=== PATIENT | female | born 1945 | race Caucasian/White ===

== ENCOUNTER → 2017-07-08 13:36 | Outpatient (POV) | payer MEDICARE, BC, SELFPAY ==
[2017-07-08 14:01] VITALS: BP 129/56; PULSE 75; RESP 20; TEMP 36.7; O2SAT 97; BMI 35.3
--- NOTE | 2017-07-08 14:11 | P.CONS_ITS ---
[facility] Pain Management SOAP Note Subjective:: This patient is a pleasant 71-year-old white female who we are seeing status post right SI joint injection under fluoroscopy. She is doing very well with 90 % relief in her pain symptoms. She has no complaints at this time. Objective:: Alert and oriented ?3 in no acute distress. Patient does have a normal gait. Minimal tenderness over the right SI joint. Motor strength of the lower extremities is 5/5. There is no gross sensory deficit. Assessment:: Sacroiliitis Plan:: She is doing very well after her right SI joint injection. We will follow-up with her in 3 months. Will reevaluate her symptoms at that time.
== END ==
PROVIDERS: Family Provider Internal Medicine Adolescent Medicine; PCP Internal Medicine Adolescent Medicine; Visit Provider Anesthesiology
DX: M46.1 Sacroiliitis, not elsewhere classified (principal)
CPT/HCPCS: 99212

== ENCOUNTER 2017-09-11 19:36 | Emergency (ER) | payer MEDICARE, BC, SELFPAY ==
[2017-09-11 19:46] VITALS: BP 129/75; PULSE 99; RESP 18; TEMP 37.3; O2SAT 94; BMI 32.0
[2017-09-11 20:02] VITALS: BP 129/75; PULSE 99; RESP 18; TEMP 37.3; O2SAT 94; BMI 33.8
[2017-09-11 20:14] LABS: UTC Influenza A Antigen Negative (Negative); UTC Influenza B Antigen Negative (Negative)
--- NOTE | 2017-09-11 20:35 | HMH.EDUTC ---
[facility] [place] Disposition Clinical Impression: Nausea & vomiting Qualifiers: Vomiting type: unspecified Vomiting Intractability: unspecified Qualified Code(s): R11.2 - Nausea with vomiting, unspecified Disposition: Home, Self-Care Condition on Discharge: Good Instructions: DI for Vomiting -- Adult, DI for Nausea -- Adult Additional Instructions: Let abdomen rest, no greasy or fried foods. For the next 24 hours drink gatoraid to help restore lost nutrients from vomiting then later progress to bland diet of toast and rice. THen slowly transition into regular foods Take zofran as prescribed for nausea and vomiting If symptoms persist follow up with family doctor in 24-48 hours if no improvement or worsening of symptoms or Straight to ER if any life threatening symptoms REturn if needed Prescriptions: Ondansetron [Zofran 4mg ODT] 4 mg PO Q8H #10 tab.rapdis Referrals: Bhupendra Smith MD [Primary Care Provider] - Time of Disposition: 20:53 Medical Decision Making - Medical Records Medical records reviewed: Yes: I reviewed the patient's medical records. - Tam Inquiry Pt receiving controlled substance: No Tam was queried for this patient: No Vital Signs: 09/11/17 19:46 09/11/17 20:02 Temperature 99.2 F 99.2 F Temperature Source Tympanic Temporal Artery Scan Pulse Rate [Left Brachial] 99 H 99 H Respiratory Rate 18 18 Blood Pressure [Left Arm] 129/75 129/75 Blood Pressure Mean [Left Arm] 93 93 Blood Pressure Source [Left Arm] Automatic Cuff Automatic Cuff Blood Pressure Position [Left Arm] Sitting Sitting 02 Sat by Pulse Oximetry 94 L 94 L Oxygen Delivery Method Room Air Room Air - Lab Data Lab results reviewed: Yes: I reviewed the patient's lab results. Lab Results 09/11/17 20:03: Influenza Type A Ag Negative, Influenza Type B Ag Negative [facility] [place] HPI - General Stated complaint: vomiting,cough,chest congestion Time Seen by Provider: 09/11/17 20:10 Mode of Arrival: Ambulatory Source of Information: Patient Limitations: No Limitations Description of Symptoms (Recalled from Triage Doc. by RN): BODY ACHES HEENT Symptoms (Recalled from RN notes): Yes Resp Symptoms (Recalled from RN notes): No Skin Symptoms (Recalled from RN notes): No MS Symptoms (Recalled from RN notes): No Functional Status (Recalled from RN notes): N - History of Present Illness Provider Complaint: Patient state that she has been on Levaquin for her eye prior to her eye surgery State thats that today she has ran a low grade fever, had nausea, vomiting and cough State that she was suppose to have surgery on her left eye on Saturday but she was sick and they couldn't do it State that today she hasn't been able to keep any food down so her brought her in [facility] to have her checked to see if she could get anything to help keep her from getting dehydrated - Related Data Home Medications Medication Instructions Recorded Confirmed digoxin 125 mcg tablet 125 mcg PO QDAY 06/27/17 furosemide 20 mg tablet 20 mg PO QDAY 06/27/17 levothyroxine 175 mcg tablet PO QDAY tab 06/27/17 metformin 500 mg tablet 500 mg PO QDAY tab 06/27/17 omeprazole 20 mg capsule,delayed 20 mg PO QDAY 06/27/17 release rivaroxaban 20 mg tablet 20 mg PO QDAY 06/27/17 simvastatin 20 mg tablet 20 mg PO QDAY tab 06/27/17 venlafaxine ER 37.5 mg 37.5 mg PO QDAY 06/27/17 capsule,extended release 24 hr Previous Rx's Medication Instructions Recorded atenolol 50 mg tablet 50 mg PO QDAY #30 tab 06/27/17 lisinopril 20 mg tablet 20 mg PO QDAY #30 tab 06/27/17 Ondansetron [Zofran 4mg ODT] 4 mg PO Q8H #10 tab.rapdis 09/11/17 Allergies Allergy/AdvReac Type Severity Reaction Status Date / Time No Known Allergies Allergy Verified 09/11/17 20:05 - Worker's Comp Is this a Worker's Comp case?: No [facility] History I have reviewed the patient's past medical history: Yes Medical History: Reports:: Asthma, Atrial Fibrillation, Cancer, Dep
--- NOTE | 2017-09-11 20:45 | ED_ITS ---
[place] Disposition Clinical Impression: Nausea & vomiting Qualifiers: Vomiting type: unspecified Vomiting Intractability: unspecified Qualified Code( s): R11.2 - Nausea with vomiting, unspecified Disposition: Home, Self-Care Condition on Discharge: Good Instructions: DI for Vomiting -- Adult, DI for Nausea -- Adult Additional Instructions: Let abdomen rest, no greasy or fried foods. For the next 24 hours drink gatoraid to help restore lost nutrients from vomiting then later progress to bland diet of toast and rice. THen slowly transition into regular foods Take zofran as prescribed for nausea and vomiting If symptoms persist follow up with family doctor in 24-48 hours if no improvement or worsening of symptoms or Straight to ER if any life threatening symptoms REturn if needed Prescriptions: Ondansetron [Zofran 4mg ODT] 4 mg PO Q8H #10 tab.rapdis Referrals: Bhupendra Smith MD [Primary Care Provider] - Time of Disposition: 20:53 Medical Decision Making - Medical Records Medical records reviewed: Yes: I reviewed the patient's medical records. - Tam Inquiry Pt receiving controlled substance: No Tam was queried for this patient: No Vital Signs: 09/11/17 19:46 09/11/17 20:02 Temperature 99.2 F 99.2 F Temperature Source Tympanic Temporal Artery Scan Pulse Rate [Left Brachial] 99 H 99 H Respiratory Rate 18 18 Blood Pressure [Left Arm] 129/75 129/75 Blood Pressure Mean [Left Arm] 93 93 Blood Pressure Source [Left Arm] Automatic Cuff Automatic Cuff Blood Pressure Position [Left Arm] Sitting Sitting 02 Sat by Pulse Oximetry 94 L 94 L Oxygen Delivery Method Room Air Room Air - Lab Data Lab results reviewed: Yes: I reviewed the patient's lab results. Lab Results 09/11/17 20:03: Influenza Type A Ag Negative, Influenza Type B Ag Negative [place] HPI - General Stated complaint: vomiting,cough,chest congestion Time Seen by Provider: 09/11/17 20:10 Mode of Arrival: Ambulatory Source of Information: Patient Limitations: No Limitations Description of Symptoms (Recalled from Triage Doc. by RN): BODY ACHES HEENT Symptoms (Recalled from RN notes): Yes Resp Symptoms (Recalled from RN notes): No Skin Symptoms (Recalled from RN notes): No MS Symptoms (Recalled from RN notes): No Functional Status (Recalled from RN notes): N - History of Present Illness Provider Complaint: Patient state that she has been on Levaquin for her eye prior to her eye surgery State thats that today she has ran a low grade fever, had nausea, vomiting and cough State that she was suppose to have surgery on her left eye on Saturday but she was sick and they couldn't do it State that today she hasn't been able to keep any food down so her brought her in [facility] to have her checked to see if she could get anything to help keep her from getting dehydrated - Related Data Home Medications Medication Instructions Recorded Confirmed digoxin 125 mcg tablet 125 mcg PO QDAY 06/27/17 furosemide 20 mg tablet 20 mg PO QDAY 06/27/17 levothyroxine 175 mcg tablet PO QDAY tab 06/27/17 metformin 500 mg tablet 500 mg PO QDAY tab 06/27/17 omeprazole 20 mg capsule,delayed 20 mg PO QDAY 06/27/17 release rivaroxaban 20 mg tablet 20 mg PO QDAY 06/27/17 simvastatin 20 mg tablet 20 mg PO QDAY tab 06/27/17 venlafaxine ER 37.5 mg 37.5 mg PO QDAY 06/27/17 capsule,extended releas
[2017-09-11 20:55] VITALS: BP 129/75; PULSE 90; RESP 18; TEMP 37.2
== END 2017-09-11 20:57 | disposition home or self-care (01) ==
PROVIDERS: Nurse Practitioner; Emergency Provider Emergency Medicine; Family Provider Internal Medicine Adolescent Medicine; PCP Internal Medicine Adolescent Medicine
DX: R11.2 Nausea with vomiting, unspecified (principal); E11.9 Type 2 diabetes mellitus without complications; Z79.84 Long term (current) use of oral hypoglycemic drugs; K21.9 Gastro-esophageal reflux disease without esophagitis; E78.5 Hyperlipidemia, unspecified; I10 Essential (primary) hypertension; I73.9 Peripheral vascular disease, unspecified; J45.909 Unspecified asthma, uncomplicated; I48.2 Chronic atrial fibrillation
CPT/HCPCS: G0463; 87804; 96372; 99201; J2405

== ENCOUNTER → 2017-10-11 13:28 | Outpatient (CLI) | payer MEDICARE, BC, SELFPAY ==
--- NOTE | 2017-10-11 13:30 | CA_ITS ---
PROCEDURE: 2-D M-mode and color Doppler study INDICATIONS FOR THE TEST: Chest pain COPD Heart Murmur Tobacco Smoking Palpitations Fatigue Syncope Edema Hypertension+Diabetes Mellitus+ Rheumatic Fever SOB [place] Obesity Hyperlipidemia+ Family History HD Additional History [PAF, CAD, [place] PATIENT INFORMATION HEIGHT: 62 WEIGHT:184 GENDER: Female B/P:133/55 2-D/M-MODE INTERPRETATION: 2-D MEASUREMENTS OBSERVED VALUES IN CMS Right Ventricular Dimension (RVDd) 1.5 Interventricular Septum (Thickness)(IVsd) 1.0 Left Ventricular Internal Dimensions(LVIDd) 5.9 Left Ventricular Posterior Wall (Thickness)(LVPWd) 0.9 Aortic Root 3.7 Aortic Cusp Separation 2.2 Left Atrial Dimensions (LAD) 3.6 2D 1. Left atrium is mildly enlarged, left ventricle is normal size, there is mild concentric left ventricular hypertrophy, visually estimated ejection fraction 55% with no obvious regional wall motion abnormality. 2. The right atrium and right ventricle are mildly enlarged with normal contractility. 3. The aortic valve is thickened and calcified leaflet continue to display mobility. 4. The mitral and tricuspid valve are grossly normal. 5. The pulmonic valve is poorly visualized. 6. No significant pericardial effusion noted. DOPPLER INTERROGATION: Doppler interrogation of the aortic, mitral and tricuspid valvular presence of mild aortic, mild mitral and tricuspid regurgitation, calculated right ventricular systolic pressure is 43 mmHg consistent with moderate pulmonary hypertension, diastolic parameters are inconclusive. CONCLUSION: 1. Mildly enlarged left atrium, normal left ventricular size, mild concentric left ventricular hypertrophy, visually estimated ejection fraction 55% with no obvious regional wall motion abnormality, diastolic parameters are inconclusive. 2. Mild mitral and tricuspid regurgitation, calculated right ventricular systolic pressure is 43 mmHg consistent with moderate pulmonary hypertension. 3. No significant pericardial effusion noted.
== END ==
PROVIDERS: Family Provider Internal Medicine Adolescent Medicine; PCP Internal Medicine Adolescent Medicine; Visit Provider Internal Medicine
DX: I48.0 Paroxysmal atrial fibrillation (principal); I10 Essential (primary) hypertension; E78.5 Hyperlipidemia, unspecified; E11.9 Type 2 diabetes mellitus without complications
CPT/HCPCS: 93306

== ENCOUNTER → 2017-10-25 12:58 | Outpatient (CLI) | payer MEDICARE, BC, SELFPAY ==
--- NOTE | 2017-10-25 13:00 | XR_ITS ---
XR DEXA axial skeleton HISTORY: ITS.REASON: POST MENOAPSUAL ORDERING PHYSICIAN: Bhupendra Smith MD PATIENT AGE: 72 years FINDINGS: The BMD measured at the Right or left femoral neck is BMD g/cm squared with a T score of T score. This is considered Osteopenic according to the World Health Organization criteria. Fracture risk is Moderate. Treatment is advised. The L1 L4 density has a T score of -0.8 IMPRESSION: Osteopenia with moderate fracture risk. Treatment suggested. Recommend follow-up examination October 2019
== END ==
PROVIDERS: Family Provider Internal Medicine Adolescent Medicine; PCP Internal Medicine Adolescent Medicine; Visit Provider Internal Medicine Adolescent Medicine
DX: Z78.0 Asymptomatic menopausal state (principal); Z13.820 Encounter for screening for osteoporosis
CPT/HCPCS: 77080

== ENCOUNTER → 2018-02-19 11:12 | Outpatient (CLI) | payer MEDICARE, BC, SELFPAY ==
[2018-02-19 13:35] LABS: Basophils % 0.6 % (0.1-2.0); Eosinophils # 0.2 K/mm3 (0.0-0.4); Eosinophils % 4.1 % (0.1-12.0); Hemoglobin 12.4 g/dL (12.2-16.2); Lymphocytes % 22.4 K/mm3 (10-50); Mean Corpuscular HGB Conc 32.7 g/dL (31.8-35.4); Mean Corpuscular Hemoglobin 27.8 pg (27.0-31.2); Mean Corpuscular Volume 85.2 fl (81-99); Mean Platelet Volume 7.8 fl (7.4-10.4); Monocytes # 0.3 K/mm3 (0.1-1.0); Monocytes % 5.5 % (1.7-9.3); Neutrophils # 3.1 K/mm3 (1.8-7.8); Neutrophils % 67.4 % (37.0-80.0); Platelet Count 201 K/mm3 (142-424); Red Blood Count 4.46 M/mm3 (4.20-5.40); Red Cell Distribution Width 14.4 % (11.5-17.5); White Blood Count 4.6 K/mm3 (4.8-10.8)
[2018-02-19 13:56] LABS: Hemoglobin A1C 5.5 % (0.0-7.0)
[2018-02-19 14:09] LABS: Glucose 102 mg/dL (74-106); Thyroid Stimulating Hormone 0.01 uIU/ml (0.358-3.740)
[2018-02-19 14:25] LABS: Alanine Aminotransferase 21 U/L (12-78); Albumin Level 3.5 gm/dL (3.4-5.0); Albumin/Globulin Ratio 1.3 (1.1-1.8); Alkaline Phosphatase 110 U/L (46-116); Anion Gap 12.3 mEq/L (5-15); Aspartate Amino Transferase 14 U/L (15-37); Bilirubin,Total 0.5 mg/dL (0.2-1.0); Blood Urea Nitrogen 10 mg/dL (7-18); Calcium 8.4 mg/dL (8.5-10.1); Carbon Dioxide 29 mmol/L (21.0-32.0); Chloride 105 mmol/L (98-107); Creatinine,Serum 0.74 mg/dL (0.55-1.02); Estimated Glomerular Filt Rate 77 ml/min (>60); GFR (African American) 94 ML/MIN (>60); Globulin 2.8 gm/dl (1.3-3.2); Potassium 4.3 mmoL/L (3.5-5.1); Sodium 142 mmol/L (136-145); Total Protein,Serum 6.3 gm/dL (6.4-8.2)
[2018-02-19 14:52] LABS: Chol/HDL Ratio 2.4 (1-3.5); Cholesterol 144 mg/dL (140-200); HDL Cholesterol 59 mg/dL (29-89); LDL Cholesterol 58 mg/dL (0-130); Triglycerides 137 mg/dL (30-200); VLDL Cholesterol 27 mg/dL (0-40)
== END ==
PROVIDERS: PCP Internal Medicine Adolescent Medicine; Visit Provider Internal Medicine Adolescent Medicine
DX: I48.2 Chronic atrial fibrillation (principal); E11.9 Type 2 diabetes mellitus without complications; E78.2 Mixed hyperlipidemia
CPT/HCPCS: 36415; 80053; 80061; 83036; 84443; 85025

== ENCOUNTER 2018-06-14 05:06 | Inpatient (IN) ==
--- NOTE | 2018-06-14 05:20 | Emergency Department Note ---
ED Disposition Clinical Impression: 2nd degree atrioventricular block, History of atrial fibrillation, Diabetes mellitus Disposition: Admitted As Inpatient Condition on Discharge: Fair - Critical Care Critical Care Time: No Attestation: On , the high probability of a clinically significant, sudden or life threatening deterioration of the following system(s) required my full and direct attention, intervention and personal management. The time I documented below is in addition to time spent performing reported procedures but includes the following listed in this critical care notation. Medical Decision Making - Medical Records Medical records reviewed: Yes: I reviewed the patient's medical records. MR Comment: Discussed case with her station operator Dr. Howe. Discussed case with hospitalist investigation specialist (Dr. Najera). Patient admitted to hospital for farther management and monitoring. Patient remained stable during her ED care. - Tam Inquiry Pt receiving controlled substance: No Tam was queried for this patient: No Vital Signs: 06/14/18 05:07 06/14/18 05:51 06/14/18 06:06 Pulse Rate [Right] 75 71 70 Respiratory Rate 20 20 20 Blood Pressure [Right Arm] 169/92 H 153/76 H 145/84 H Blood Pressure Mean [Right Arm] 117 101 104 Blood Pressure Source [Right Arm] Automatic Cuff Blood Pressure Position [Right Arm] Supine 02 Sat by Pulse Oximetry 96 96 96 Oxygen Delivery Method Room Air Room Air Room Air - Lab Data Lab results reviewed: Yes: I reviewed the patient's lab results. Lab Results 06/14/18 05:10: WBC 6.6, RBC 4.48, Hgb 12.8, Hct 39.6, MCV 88.3, MCH 28.5, MCHC 32.3, RDW 13.8, Plt Count 230, MPV 7.1 L, Neut % (Auto) 58.4, Lymph % (Auto) 32.2, [place] % (Auto) 4.5, Eos % (Auto) 3.9, Baso % (Auto) 0.9, Neut # (Auto) 3.8, Lymph # (Auto) 2.1, [place] # (Auto) 0.3, Eos # (Auto) 0.3, Baso # (Auto) 0.1 06/14/18 05:10: Sodium 142, Potassium 3.9, Chloride 103, Carbon Dioxide 30, Anion Gap 12.9, BUN 18, Creatinine 0.88, Estimated Creat Clear 67, Estimated GFR 63, Est GFR ( Amer) 77, Glucose 121 H, Calcium 8.7, Troponin I < 0.02 06/14/18 05:10: Magnesium 1.9, TSH 0.70 D, Free T4 1.11 06/14/18 05:10: B-Natriuretic Peptide 68 06/14/18 05:10: Digoxin 0.75 L 06/14/18 05:10: APTT 38.4 H 06/14/18 05:10: PT 12.9 H, INR 1.26 H Result diagrams: 06/14/18 05:10 06/14/18 05:10 Orders (Tests/Meds): ED MEDICATIONS Generic Name Dose Route Start Last Admin Trade Name Freq PRN Reason Stop Dose Admin Sodium Chloride 10 ml 06/14/18 05:13 Saline Flush 10ml Syringe IV 07/14/18 05:12 NEEDED PRN Maintain IV Site ORDERS Category Date Time Status XR chest 2V Stat Exams 06/14/18 05:13 Taken 12-lead EKG Request [ECG Request by /Estela] Stat Y 06/14/18 05:13 Ordered - Radiology Data #1 Image(s): Chest Image Reviewed: Yes I reviewed the patient's radiology image Preliminary Findings: Normal/NAD - ECG Data Tracing #1 Arrhythmias present: other (2nd Degree AV block, Mobitz type I ) Chest Pain HPI - General Chief Complaint: Arrhythmia/Palpitations Stated Complaint: Irregular heart beat Time Seen by Provider: 06/14/18 05:07 Mode of Arrival: Ambulatory Limitations: No Limitations Description of Symptoms (Recalled from ER Triage Doc. by RN): Pt states right before arrival she had woken up to use the rest room and started to feel her heart "fluttering" Pt states she has a-fib but is not currently taking anything for it. Pt states she has SOA and chest pain with this episode. - History of Present Illness HPI narrative: Patient with history of HTN, DM, atrial fibrillation, comes to the ED after waking up with persistent feeling of palpitation. Denies chest pain, sob. Reports compliance with her current home medications. - Related Data Home Medications Medication Instructions Recorded Confirmed furosemide 20 mg tablet 20 mg PO QDAY 06/27/17 06/14/18 metformin 500 mg tablet 500 mg PO QDAY tab 06/27/17 06/14/18 omeprazole 20 mg capsule,delayed 20 mg PO QDAY 06/27/17 06/14/18 release simvastatin 20 mg tablet 20 mg PO QDAY tab 06/27/17 06/14/18 fluticasone 50 mcg/actuation nasal 1 spray INTRANASAL DAILY g 10/17/17 06/14/18 spray,suspension lactobacillus combination no.8 3 3,000 mmu cells PO DAILY cap 10/17/17 06/14/18 billion cell capsule ranitidine 150 mg tablet 150 mg PO BID tab 10/17/17 06/14/18 venlafaxine ER 37.5 mg 150 mg PO QDAY cap 10/17/17 06/14/18 capsule,extended release 24 hr levothyroxine 150 mcg tablet 150 mcg PO DAILY 04/17/18 06/14/18 ondansetron 4 mg disintegrating 4 mg PO Q8H PRN tab.rapdis 04/17/18 06/14/18 tablet Atenolol [Atenolol 50mg Tab] 50 mg PO QDAY 06/14/18 06/14/18 Digoxin 125 mcg PO QDAY 06/14/18 06/14/18 Lisinopril [Prinivil 20mg Tablet] 10 mg PO QDAY 06/14/18 06/14/18 Rivaroxaban [Xarelto 20mg Tablet] 20 mg PO QDAY 06/14/18 06/14/18 Allergies Allergy/AdvReac Type Severity Reaction Status Date / Time No Known Allergies Allergy Verified 09/11/17 20:05 [facility] History - Hepatitis A Screen Drug use history?: No High risk sexual behaviors?: No History of sexually transmitted infection?: No Currently employed?: No Childcare worker?: No Do you have indoor plumbing?: Yes Do you have electricity?: Yes Attestation statement:: This patient has been screened for Hepatitis A risk factors. Medical History: Reports:: Asthma, Atrial Fibrillation, Cancer (breast), Depression, Diabetes Mellitus Type 2, Gastroesophageal Reflux Disease(GERD), Hyperlipidemia, Hypertension, Palpitations, Peripheral Artery Disease Other Medical History: Reports: Arthritis, Fibromyalgia, Hypothyroidism Laterality Cases: Bilateral: Lumpectomy Other Surgeries: Yes: Hysterectomy-Total, Other - Social History Smoking Status: Former smoker Alcohol Intake: never Alcohol Intake Frequency:: other - Psychiatric History Expresses thoughts of harming self/others: None Suicide Plan Description: No Plan Pschychiatric History:: Reports:: Depression Family Hx:: Coronary Artery Disease ROS Obtained: Yes All systems reviewed & no additional complaints - Cardiovascular Cardiovascular: Reports as per HPI Physical Exam - General General appearance: alert, in no apparent distress - Head Head exam: atraumatic, normocephalic, normal inspection - Eye Eye exam: Present: normal appearance, PERRL, EOMI - ENT ENT exam: Present: normal exam, normal oropharynx, mucous membranes moist, TM's normal bilaterally, normal external ear exam - Neck Neck exam: Present: normal inspection, full ROM, trachea midline. Absent: meningismus, lymphadenopathy - Chest Chest inspection: Present: normal inspection, symmetric chest wall rise. Absent: tenderness - Respiratory Respiratory exam: Present: normal lung sounds bilaterally. Absent: respiratory distress - Cardiovascular Cardiovascular exam: Present: irregular rhythm. Absent: JVD - Abdominal Exam Abdominal exam: Present: soft, normal bowel sounds. Absent: distention, tenderness, guarding - Extremities Exam Extremities exam: Present: normal inspection, full ROM, normal capillary refill. Absent: calf tenderness - Back Exam Back exam: Present: normal inspection. Absent: tenderness - Neurological Exam Neurological exam: Present: alert, oriented X3 - Psychiatric Psychiatric exam: Present: normal affect, normal mood - Skin Skin exam: Present: warm, dry, intact, normal color - Lymphatic Lymphatic Findings: no adenopathy
[2018-06-14 05:24] LABS: Basophils # 0.1 K/mm3 (0-0.2); Basophils % 0.9 % (0.1-2.0); Eosinophils # 0.3 K/mm3 (0.0-0.4); Eosinophils % 3.9 % (0.1-12.0); Hematocrit 39.6 % (37.0-47.0); Hemoglobin 12.8 g/dL (12.2-16.2); Lymphocytes # 2.1 K/mm3 (0.7-4.5); Lymphocytes % 32.2 % (10-50); Mean Corpuscular HGB Conc 32.3 g/dL (31.8-35.4); Mean Corpuscular Hemoglobin 28.5 pg (27.0-31.2); Mean Corpuscular Volume 88.3 fl (81-99); Mean Platelet Volume 7.1 fl (7.4-10.4); Monocytes # 0.3 K/mm3 (0.1-1.0); Monocytes % 4.5 % (1.7-9.3); Neutrophils # 3.8 K/mm3 (1.8-7.8); Neutrophils % 58.4 % (37.0-80.0); Platelet Count 230 K/mm3 (142-424); Red Blood Count 4.48 M/mm3 (4.20-5.40); Red Cell Distribution Width 13.8 % (11.5-17.5); White Blood Count 6.6 K/mm3 (4.8-10.8)
[2018-06-14 05:40] LABS: Anion Gap 12.9 mEq/L (5-15); Blood Urea Nitrogen 18 mg/dL (7-18); Calcium 8.7 mg/dL (8.5-10.1); Carbon Dioxide 30 mmol/L (21.0-32.0); Chloride 103 mmol/L (98-107); Glucose 121 mg/dL (74-106); Potassium 3.9 mmoL/L (3.5-5.1); Sodium 142 mmol/L (136-145)
[2018-06-14 05:45] LABS: Free T4 (Free Thyroxine) 1.11 ng/dl (0.76-1.46); Thyroid Stimulating Hormone 0.7 uIU/ml (0.358-3.740)
[2018-06-14 06:07] LABS: INR 1.26 (0.9-1.1); Prothrombin Time 12.9 seconds (9.4-11.8)
--- NOTE | 2018-06-14 09:23 | Pharmacy Consult Notes ---
[facility] VTE Monitoring - Patient Demographics Admission date: 06/14/18 Report Date: 06/14/18 Time: 09:23 Allergies/Adverse Reactions: Patient Allergies No Known Allergies Allergy (Verified 09/11/17 20:05) Height: 1.55 m Weight: 82.327 kg Patient Problems: Current Active Problems 2nd degree atrioventricular block (Acute) History of atrial fibrillation (Acute) Diabetes mellitus (Acute) - VTE Risk Labs: VTE Related Lab Results Hgb 12.8 g/dL (12.2-16.2) 06/14/18 05:10 Hct 39.6 % (37.0-47.0) 06/14/18 05:10 Plt Count 230 K/mm3 (142-424) 06/14/18 05:10 PT 12.9 seconds (9.4-11.8) H 06/14/18 05:10 INR 1.26 (0.9-1.1) H 06/14/18 05:10 APTT 38.4 seconds (23.6-34.0) H 06/14/18 05:10 BUN 18 mg/dL (7-18) 06/14/18 05:10 Creatinine 0.88 mg/dL (0.55-1.02) 06/14/18 05:10 Estimated Creat Clear 67 mL/min (50-200) 06/14/18 05:10 VTE Score: 10 VTE Risk Level: Moderate Risk - Prophylaxis VTE Prophylaxis Ordered?: Yes Types of VTE Prophylaxis: TEDS Knee High, Pharmacological Location of Applied Device: Bilateral Lower Extremeties Pharmacologic Type: Other (XARELTO) - VTE Diagnosis Confirmed Treatment or plan recommended: Continue Current Treatment
--- NOTE | 2018-06-14 13:39 | History & Physical Report ---
*Admission Date: 06/14/18 *Chief complaint: Abnormal heart rhythm *History of present illness: Ms. Sagastume is a 72-year-old female with medical history consisting of Asthma, paroxysmal atrial Fibrillation, Diabetes Mellitus Type 2, Gastroesophageal Reflux Disease(GERD), Hyperlipidemia, Hypertension. She reports that she has been following with cardiology for her A. fib. Has a history of being treated with an ablation several years ago that did not resolve her atrial fibrillation. She is currently on digoxin for rhythm control. She reports for the past week she has not felt 100%. Has felt a little bit more fatigued and short of breath. Denies any magdalene chest pain, worsening lower extremity edema, syncope, or dizziness. She states that she follows with cardiology at [facility] and was instructed to return to clinic if she develops recurrent atrial fibrillation or arrhythmias. It was this morning at approximately 330 that she woke up with her heart "fluttering". She promptly had her bring her to the emergency room where she was assessed and found to have concern for a heart block. Cardiology was consulted at that time the patient was admitted to medicine for further management. Her complaints on interview this morning. Admitted on telemetry [facility] History I have reviewed the patient's past medical history: Yes Medical History: Reports:: Arrhythmia, Asthma, Atrial Fibrillation, Cancer (cynthia ast), Depression, Diabetes Mellitus Type 2, Gastroesophageal Reflux Disease(GERD), Hyperlipidemia, Hypertension, Palpitations, Peripheral Artery Disease Other Medical History: Reports: Arthritis, Cataracts, Fibromyalgia, Hypothyroidism Laterality Cases: Right: Breast Biopsy, Bilateral: Lumpectomy, Tonsillectomy Other Surgeries: Yes: Cancer Surgery, Cardiac Catheterization, Cholecystectomy, Colonoscopy, EGD, Hysterectomy-Total, Other Amputation: No Fractures: No - *Social History Educational Level: Attended [employer] Smoking Status: Former smoker Tobacco Type: cigarettes # Packs/Day (cigarettes): 1 #Yrs smoked (if former smoker): 30 Alcohol Intake: former Alcohol Intake Frequency:: holidays/special occasions only Occupational Status: retired Housing: house Household Members: spouse - Psychiatric History Expresses thoughts of harming self/others: None Suicide Plan Description: No Plan Pschychiatric History:: Reports:: Depression *Family Hx:: Asthma, Cancer, Coronary Artery Disease, Diabetes, Heart Attack, Hyperlipidemia, Hypertension, Stroke Review of Systems - Review of Systems Review of systems:: pertinent systems reviewed and negative unless documented below Meds Home Medications Medication Instructions Recorded Confirmed Type furosemide 20 mg tablet 20 mg PO DAILY 06/27/17 06/14/18 History metformin 500 mg tablet 500 mg PO DAILY tab 06/27/17 06/14/18 History omeprazole 20 mg capsule,delayed 20 mg PO BID 06/27/17 06/14/18 History release simvastatin 20 mg tablet 20 mg PO HS tab 06/27/17 06/14/18 History fluticasone 50 mcg/actuation nasal 1 spray INTRANASAL DAILY g 10/17/17 06/14/18 History spray,suspension lactobacillus combination no.8 3 1 cap PO DAILY cap 10/17/17 06/14/18 History billion cell capsule ranitidine 150 mg tablet 150 mg PO BID tab 10/17/17 06/14/18 History levothyroxine 150 mcg tablet 150 mcg PO DAILY 04/17/18 06/14/18 History ondansetron 4 mg disintegrating 4 mg PO Q8HP PRN tab.rapdis 04/17/18 06/14/18 History tablet Atenolol [Atenolol 50mg Tab] 50 mg PO DAILY 06/14/18 06/14/18 History Digoxin 125 mcg PO DAILY 06/14/18 06/14/18 History Lisinopril [Prinivil 20mg Tablet] 10 mg PO DAILY 06/14/18 06/14/18 History Rivaroxaban [Xarelto 20mg Tablet] 20 mg PO DAILY 06/14/18 06/14/18 History Venlafaxine HCl [Venlafaxine HCl 150 mg PO DAILY 06/14/18 06/14/18 History ER] Allergies Allergy/AdvReac Type Severity Reaction Status Date / Time No Known Allergies Allergy Verified 09/11/17 20:05 Exam Vital signs and Labs for Last 24 Hours: Temp Pulse Resp BP Pulse Ox 97.6 F 67 18 153/68 H 97 06/14/18 13:00 06/14/18 13:00 06/14/18 13:00 06/14/18 13:00 06/14/18 13:00 Laboratory Results - last 24 hr 06/14/18 05:10: WBC 6.6, RBC 4.48, Hgb 12.8, Hct 39.6, MCV 88.3, MCH 28.5, MCHC 32.3, RDW 13.8, Plt Count 230, MPV 7.1 L, Neut % (Auto) 58.4, Lymph % (Auto) 32.2, Dauphin % (Auto) 4.5, Eos % (Auto) 3.9, Baso % (Auto) 0.9, Neut # (Auto) 3.8, Lymph # (Auto) 2.1, Dauphin # (Auto) 0.3, Eos # (Auto) 0.3, Baso # (Auto) 0.1 06/14/18 05:10: Sodium 142, Potassium 3.9, Chloride 103, Carbon Dioxide 30, Anion Gap 12.9, BUN 18, Creatinine 0.88, Estimated Creat Clear 67, Estimated GFR 63, Est GFR ( Amer) 77, Glucose 121 H, Calcium 8.7, Troponin I < 0.02 06/14/18 05:10: Magnesium 1.9, TSH 0.70 D, Free T4 1.11 06/14/18 05:10: B-Natriuretic Peptide 68 06/14/18 05:10: Digoxin 0.75 L 06/14/18 05:10: APTT 38.4 H 06/14/18 05:10: PT 12.9 H, INR 1.26 H I & O for Last 24 hours: Intake & Output 06/11/18 06/12/18 06/13/18 06/14/18 23:59 23:59 23:59 23:59 Intake Total 240 / 240 Balance 240 / 240 Weight 82.327 kg - Constitutional no acute distress - *Routine HEENT Exam Head: Present: normocephalic, atraumatic Eye: Present: EOMI, PERRL ENT: Present: mucous membranes moist - *Routine Neck Exam Present: supple. Absent: JVD - *Routine Respiratory Exam Present: CTA bilaterally. Absent: wheezes, crackles - *Routine Cardiovascular Exam Present: Normal S1, Normal S2, irregular rhythm. Absent: murmur - *Routine Abdominal Exam Present: soft, normoactive bowel sounds - *Routine Rectal Exam Patient deferred: visual exam - *Routine Exam Patient deferred: external exam - *Routine Extremities Exam Absent: cyanosis, clubbing, edema - *Routine Skin Exam Present: intact. Absent: cyanosis, erythema - *Routine Neurological Exam Present: alert, oriented X3, altered mental status Assessment and Plan (1) 2nd degree atrioventricular block Current visit: Yes Status: Acute Category: Medical Code(s): I44.1 - Atrioventricular block, second degree Monitor on telemetry Cardiology consulted, appreciate recommendation Going to Card Hand this afternoon (2) Diabetes mellitus Current visit: Yes Status: Chronic Qualifiers: Diabetes mellitus type: type 2 Diabetes mellitus complication status: without complication Category: Medical Code(s): E11.9 - Type 2 diabetes mellitus without complications Sliding scale insulin (3) Atrial fibrillation Current visit: No Status: Chronic Qualifiers: Atrial fibrillation type: paroxysmal Qualified Code(s): I48.0 - Paroxysmal atrial fibrillation Category: Medical Code(s): I48.91 - Unspecified atrial fibrillation Currently continued atenolol and digoxin. Continue Xarelto. Further changes pending cardiology Jonas (4) Hypertensive disorder Current visit: No Status: Chronic Qualifiers: Hypertension type: essential hypertension Qualified Code(s): I10 - Essential (primary) hypertension Category: Medical Code(s): I10 - Essential (primary) hypertension Continue lisinopril (5) Hypothyroid Current visit: Yes Status: Chronic Qualifiers: Hypothyroidism type: acquired Qualified Code(s): E03.9 - Hypothyroidism, unspecified Category: Medical Code(s): E03.9 - Hypothyroidism, unspecified Continue home levothyroxine - Assessment and plan all Dx Assessment and Plan for all problems:: Intervention plan for this afternoon. Further management pending cardiology recommendations. Continues to require inpatient treatment
--- NOTE | 2018-06-14 23:20 | Discharge Summary ---
General - General Admission date:: 06/14/18 Discharge date: 06/15/18 HPI HPI: Ms. Sagastume is a 72-year-old female with medical history consisting of Asthma, paroxysmal atrial Fibrillation, Diabetes Mellitus Type 2, Gastroesophageal Reflux Disease(GERD), Hyperlipidemia, Hypertension. She reports that she has been following with cardiology for her A. fib. Has a history of being treated with an ablation several years ago that did not resolve her atrial fibrillation. She is currently on digoxin for rhythm control. She reports for the past week she has not felt 100%. Has felt a little bit more fatigued and short of breath. Denies any magdalene chest pain, worsening lower extremity edema, syncope, or dizziness. She states that she follows with cardiology at [facility] and was instructed to return to clinic if she develops recurrent atrial fibrillation or arrhythmias. It was this morning at approximately 330 that she woke up with her heart "fluttering". She promptly had her bring her to the emergency room where she was assessed and found to have concern for a heart block. Cardiology was consulted at that time the patient was admitted to medicine for further management. Her complaints on interview this morning. Admitted on telemetry Objective Vital signs: Temp Pulse Resp BP Pulse Ox 98.1 F 59 L 16 138/65 97 06/14/18 22:00 06/14/18 22:00 06/14/18 22:00 06/14/18 22:00 06/14/18 22:00 Results Labs on day of discharge: Labs from last 24 hours 06/14/18 06/14/18 06/14/18 14:15 05:10 05:10 WBC RBC Hgb Hct MCV MCH MCHC RDW Plt Count MPV Neut % (Auto) Lymph % (Auto) Sargent % (Auto) Eos % (Auto) Baso % (Auto) Neut # (Auto) Lymph # (Auto) Sargent # (Auto) Eos # (Auto) Baso # (Auto) PT 12.9 H INR 1.26 H APTT 38.4 H Activated Clotting Time > 400 H* Sodium Potassium Chloride Carbon Dioxide Anion Gap BUN Creatinine Estimated Creat Clear Estimated GFR Est GFR ( Amer) Glucose Calcium Magnesium Troponin I B-Natriuretic Peptide TSH Free T4 Digoxin 06/14/18 06/14/18 06/14/18 05:10 05:10 05:10 WBC RBC Hgb Hct MCV MCH MCHC RDW Plt Count MPV Neut % (Auto) Lymph % (Auto) Sargent % (Auto) Eos % (Auto) Baso % (Auto) Neut # (Auto) Lymph # (Auto) Sargent # (Auto) Eos # (Auto) Baso # (Auto) PT INR APTT Activated Clotting Time Sodium Potassium Chloride Carbon Dioxide Anion Gap BUN Creatinine Estimated Creat Clear Estimated GFR Est GFR ( Amer) Glucose Calcium Magnesium 1.9 Troponin I B-Natriuretic Peptide 68 TSH 0.70 D Free T4 1.11 Digoxin 0.75 L 06/14/18 06/14/18 05:10 05:10 WBC 6.6 RBC 4.48 Hgb 12.8 Hct 39.6 MCV 88.3 MCH 28.5 MCHC 32.3 RDW 13.8 Plt Count 230 MPV 7.1 L Neut % (Auto) 58.4 Lymph % (Auto) 32.2 Sargent % (Auto) 4.5 Eos % (Auto) 3.9 Baso % (Auto) 0.9 Neut # (Auto) 3.8 Lymph # (Auto) 2.1 Sargent # (Auto) 0.3 Eos # (Auto) 0.3 Baso # (Auto) 0.1 PT INR APTT Activated Clotting Time Sodium 142 Potassium 3.9 Chloride 103 Carbon Dioxide 30 Anion Gap 12.9 BUN 18 Creatinine 0.88 Estimated Creat Clear 67 Estimated GFR 63 Est GFR ( Amer) 77 Glucose 121 H Calcium 8.7 Magnesium Troponin I < 0.02 B-Natriuretic Peptide TSH Free T4 Digoxin DS: Diagnosis - Discharge Diagnosis (1) 2nd degree atrioventricular block Status: Acute (2) Diabetes mellitus Status: Chronic (3) Atrial fibrillation Status: Chronic (4) Hypertensive disorder Status: Chronic (5) Hypothyroid Status: Chronic Discharge Plan - Patient Discharge Instructions Patient Instructions: How to Care for a Surgical Wound, DI for Cardiac Catheterization, DI for Surgical Site Infection - Follow up Plan Home Medications: Home Medications Medication Instructions Recorded Confirmed Type furosemide 20 mg tablet 20 mg PO DAILY 06/27/17 06/14/18 History metformin 500 mg tablet 500 mg PO DAILY tab 06/27/17 06/14/18 History omeprazole 20 mg capsule,delayed 20 mg PO BID 06/27/17 06/14/18 History release simvastatin 20 mg tablet 20 mg PO HS tab 06/27/17 06/14/18 History fluticasone 50 mcg/actuation nasal 1 spray INTRANASAL DAILY g 10/17/17 06/14/18 History spray,suspension lactobacillus combination no.8 3 1 cap PO DAILY cap 10/17/17 06/14/18 History billion cell capsule ranitidine 150 mg tablet 150 mg PO BID tab 10/17/17 06/14/18 History levothyroxine 150 mcg tablet 150 mcg PO DAILY 04/17/18 06/14/18 History ondansetron 4 mg disintegrating 4 mg PO Q8HP PRN tab.rapdis 04/17/18 06/14/18 History tablet Atenolol [Atenolol 50mg Tab] 50 mg PO DAILY 06/14/18 06/14/18 History Digoxin 125 mcg PO DAILY 06/14/18 06/14/18 History Lisinopril [Prinivil 20mg Tablet] 10 mg PO DAILY 06/14/18 06/14/18 History Rivaroxaban [Xarelto 20mg Tablet] 20 mg PO DAILY 06/14/18 06/14/18 History Venlafaxine HCl [Venlafaxine HCl 150 mg PO DAILY 06/14/18 06/14/18 History ER] Prescriptions/Medication Reconciliation: No Action furosemide 20 mg tablet 20 mg PO DAILY simvastatin 20 mg tablet 20 mg PO HS tab omeprazole 20 mg capsule,delayed release 20 mg PO BID metformin 500 mg tablet 500 mg PO DAILY tab ranitidine 150 mg tablet 150 mg PO BID tab lactobacillus combination no.8 3 billion cell capsule 1 cap PO DAILY cap fluticasone 50 mcg/actuation nasal spray,suspension 1 spray INTRANASAL DAILY g levothyroxine 150 mcg tablet 150 mcg PO DAILY ondansetron 4 mg disintegrating tablet 4 mg PO Q8HP PRN tab.rapdis PRN Reason: Nausea & vomiting Lisinopril [Prinivil 20mg Tablet] 10 mg PO DAILY Digoxin 125 mcg PO DAILY Rivaroxaban [Xarelto 20mg Tablet] 20 mg PO DAILY Atenolol [Atenolol 50mg Tab] 50 mg PO DAILY Venlafaxine HCl [Venlafaxine HCl ER] 150 mg PO DAILY
[2018-06-15 06:17] LABS: Hematocrit 38.3 % (37.0-47.0); Hemoglobin 12.6 g/dL (12.2-16.2)
== END 2018-06-15 12:01 | disposition home or self-care (01) | DRG 247 ==
LOC: ER 05:06 → 2ND 05:06 → OBSVTOIN 06:35 → 2ND 06:39
PROVIDERS: ADMIT Internal Medicine Adolescent Medicine; ATTEND Internal Medicine Adolescent Medicine
CPT/HCPCS: 36415; 71020; 71046; 80048; 80162; 82565; 83735; 83880; 84439; 84443; 84484; 85014; 85018; 85025; 85347; 85610; 85730; 92928; 93005; 93458; 99152; 99153; 99284; C1725; C1769; C1876; C9600; J1644; Q9967

== ENCOUNTER → 2018-11-12 10:15 | Outpatient (CLI) | payer MEDICARE, BC, SELFPAY ==
[2018-11-12 13:57] LABS: Basophils % 0.6 % (0.1-2.0); Eosinophils # 0.2 K/mm3 (0.0-0.4); Eosinophils % 3.8 % (0.1-12.0); Hematocrit 34.8 % (37.0-47.0); Hemoglobin 11.7 g/dL (12.2-16.2); Lymphocytes # 1.6 K/mm3 (0.7-4.5); Lymphocytes % 27.1 % (10-50); Mean Corpuscular HGB Conc 33.6 g/dL (31.8-35.4); Mean Corpuscular Hemoglobin 27.7 pg (27.0-31.2); Mean Corpuscular Volume 82.3 fl (81-99); Mean Platelet Volume 7.3 fl (7.4-10.4); Monocytes # 0.3 K/mm3 (0.1-1.0); Monocytes % 4.6 % (1.7-9.3); Neutrophils # 3.9 K/mm3 (1.8-7.8); Neutrophils % 63.9 % (37.0-80.0); Platelet Count 265 K/mm3 (142-424); Red Blood Count 4.23 M/mm3 (4.20-5.40); Red Cell Distribution Width 13.6 % (11.5-17.5); White Blood Count 6.1 K/mm3 (4.8-10.8)
[2018-11-12 13:59] LABS: Hemoglobin A1C 5.8 % (0.0-7.0)
[2018-11-12 15:06] LABS: Alanine Aminotransferase 27 U/L (12-78); Albumin Level 3.3 gm/dL (3.4-5.0); Albumin/Globulin Ratio 1.2 (1.1-1.8); Alkaline Phosphatase 139 U/L (46-116); Aspartate Amino Transferase 14 U/L (15-37); Bilirubin,Total 0.4 mg/dL (0.2-1.0); Blood Urea Nitrogen 15 mg/dL (7-18); Calcium 8.6 mg/dL (8.5-10.1); Carbon Dioxide 29 mmol/L (21.0-32.0); Chloride 105 mmol/L (98-107); Chol/HDL Ratio 3.2 (1-3.5); Cholesterol 140 mg/dL (140-200); Creatinine,Serum 0.75 mg/dL (0.55-1.02); Estimated Glomerular Filt Rate 76 ml/min (>60); Free Thyroxine Index 3.6 ug/dL (5.93-13.13); GFR (African American) 92 ML/MIN (>60); Globulin 2.7 gm/dl (1.3-3.2); Glucose 113 mg/dL (74-106); HDL Cholesterol 44 mg/dL (29-89); LDL Cholesterol 42 mg/dL (0-130); Sodium 142 mmol/L (136-145); T4 (Thyroxine) 10.3 ug/dl (4.7-13.3); Triglycerides 271 mg/dL (30-200); Triiodothryronine (T3) Uptake 35 % (31-39); VLDL Cholesterol 54 mg/dL (0-40)
== END ==
PROVIDERS: PCP Internal Medicine Adolescent Medicine; Visit Provider Internal Medicine Adolescent Medicine
DX: I48.2 Chronic atrial fibrillation (principal); E11.9 Type 2 diabetes mellitus without complications; E78.2 Mixed hyperlipidemia; E03.9 Hypothyroidism, unspecified; Z79.4 Long term (current) use of insulin
CPT/HCPCS: 36415; 80053; 80061; 83036; 84436; 84443; 84479; 85025

== ENCOUNTER → 2019-04-28 13:41 | Outpatient (POV) | payer MEDICARE, BC, SELFPAY | PROVIDERS: Visit Provider Dermatology | DX: Z00.00 Encounter for general adult medical examination without abnormal findings (principal) ==

== ENCOUNTER → 2019-10-12 13:48 | Outpatient (CLI) | payer MEDICARE, BC, SELFPAY ==
--- NOTE | 2019-10-12 14:08 | US_ITS ---
PROCEDURE: US TRANSVAGINAL CLINICAL INDICATION: LOWER ABD PAIN Urinary incontinence COMPARISON: No exams were available for comparison FINDINGS: There has been a previous total abdominal hysterectomy. Vaginal cuff unremarkable appearance. No obvious pelvic mass. There is a small amount postvoid residual urine within the urinary bladder estimated at 13 mL. IMPRESSION: Prior hysterectomy with small amount of postvoid residual urine noted within the urinary bladder Dictated by: Isaias Sands MD 10/12/2019 16:18 Electronically signed by Isaias Sands MD in [place] 10/12/2019 16:18
== END ==
PROVIDERS: PCP Internal Medicine Adolescent Medicine; Visit Provider Internal Medicine Adolescent Medicine
DX: R10.30 Lower abdominal pain, unspecified (principal)
CPT/HCPCS: 76830

== ENCOUNTER → 2019-12-29 06:39 | Outpatient (CLI) | payer MEDICARE, BC, SELFPAY ==
--- NOTE | 2019-12-29 | CA_ITS ---
APPROVED REPORT Exam: Pharmacologic Technologist: Kalyani Mendoza Ht: 5 ft 2 in Wt: 178 lbs BSA: 1.82 m2 HR: 60 bpm BP: 159/53 mmHg Indications: Angina Medical History Medications: Lisinopril,,,,, Omeprazole,,,,, Levothyroxine,,,,, Furosemide (LASIX),,,,, Atenolol,,,,, Metformin,,,,, Atorvastatin,,,,, Ticagrelor,,,,, Famotidine,,,,, Venlafaxine,,,,, RIvaROXABAN,,,,, Stress Test Details Test: LEXISCAN HR Resting HR: 60 bpm Max Heart Rate (APMHR): 147 bpm Max HR Achieved: 88 bpm Target HR (85% APMHR): 124 bpm % of APMHR: 59 Recovery HR: 59 bpm BP Resting BP: 159.0/53.0 mmHg Max BP: 166.0/63.0 mmHg Recovery BP: 161.0/54.0 mmHg ECG Clinical Exercise duration: 04:10 min Highest Stage Achieved: Stress ECG Conclusion Resting EKG: Normal sinus rhythm, low voltage QRS Symptoms: Shortness of air, malaise, nausea. No chest pain. Arrhythmias/Ectopy: Occasional PAC. ST-T Changes: NS ST changes. Conclusion: Unremarkable Lexiscan stress. Myoview images reported separately. Test Summary RECOVERY 03:00 . . 72 . 166/ 63 . . REST 03:13 . . 60 . 159/ 53 . . Stage 1 . . . . . . . Myoview Injected Stage 1 01:00 . . 79 . . . . Stage 2 01:00 . . 86 . . . . Stage 3 01:00 . . 80 . 146/ 56 . . Stage 4 01:00 . . 77 . 150/ 62 . . Stage 4 01:10 . . 77 . 150/ 62 . Stop exercise at 04:10 RECOVERY 01:00 . . 77 . 159/ 63 . . RECOVERY 02:00 . . 74 . 159/ 63 . . RECOVERY 03:00 . . 72 . 166/ 63 . . RECOVERY 04:00 . . 72 . 166/ 63 . . RECOVERY 05:00 . . 68 . 166/ 63 . . RECOVERY 06:00 . . 63 . 166/ 63 . . RECOVERY 07:00 . . 61 . 161/ 54 . . RECOVERY 07:15 . . 61 . 161/ 54 . . Electronically signed by : Ishan Marie, 12/29/2019 20:21:29
--- NOTE | 2019-12-29 06:41 | CA_ITS ---
APPROVED REPORT EXAM: Comprehensive 2D, Doppler, and color-flow Echocardiogram Mixing Technician: Razia Lee RVT Ht: 5 ft 2 in Wt: 178lbs BSA: 1.82 BP: 139/56 mmHg Indications: angina,ex smoker,adri,htn,hld,a-fib,dm,mobley,edema 2D Dimensions LVOT 1.40 cm (M/F) 1.5-2.5 M-Mode Dimensions RVDd 2.10 cm (0.9-2.6) LA Diam 4.20 cm (1.9-4.0) LVDd 4.20 cm (3.5-5.7) Ao Diam 2.50 cm (2.0-3.7) LVDs 3.80 cm (3.5-5.7) AV Cusp 2.20 cm (1.5-2.6) IVSd 0.60 cm (0.6-1.1) PWd 0.80 cm (0.6-1.1) EF (Teich) 21.10% FS 9.52% EDV (Teich) 78.60 mL ESV (Teich) 62.00 mL LV Diastology E/A Ratio 1.3 MED E' 6.73 (< 7 cm/sec) E'/MED E' Ratio 14.40 (>14) LAT E' 8.48 (<10 cm/sec) E/LAT E' Ratio 11.50 (>14) Aortic Valve AoV Peak Gigi. 117.00 (50-130 cm/s) AI PHT 608.00 ms AO Peak GR. 5.00 mmHg Mitral Valve MV E Max Gigi. 97.20 (40-130 cm/s) MV A Velocity 72.10 (40-130 cm/s) E/A Ratio 1.30 Pulmonary Valve PV Peak Velocity 101.00 (50-150 cm/s) Tricuspid Valve TR P. Velocity 308.00 cm/s Left Ventricle Left atrium is mildly enlarged, left ventricle is normal size, mild concentric left ventricular hypertrophy, visually estimated ejection fraction 55% with no regional wall motion abnormality, diastolic parameters are inconclusive. Right Ventricle Right atrium and right ventricular mildly enlarged with normal contractility. Aortic Valve Aortic valve is thickened and calcified leaflet chordae display good mobility, there is no aortic stenosis, there is moderate aortic insufficiency. Mitral Valve Mitral valve is grossly normal, there is mild mitral regurgitation. Tricuspid Valve Tricuspid valve is grossly normal, there is mild tricuspid regurgitation, tricuspid regurgitation jet velocity is inadequate for calculation of the right ventricular systolic pressure. Pulmonic Valve Pulmonic valve is poorly visualized. Great Vessels Aortic root is normal size. Pericardium No significant pericardial effusion noted. Conclusion 1. Mild biatrial enlargement, normal left ventricular size, mild concentric left ventricular hypertrophy, visually estimated ejection fraction 55% with no regional wall motion abnormality, diastolic parameters are inconclusive. 2. Moderate aortic, mild mitral and tricuspid regurgitation. 3. No significant pericardial effusion noted. Electronically signed by : Ishan Marie, 12/29/2019 19:39:04
--- NOTE | 2019-12-29 06:41 | NM_ITS ---
APPROVED REPORT Exam: Nuclear Stress Test Indication: Chest pain, SOB, CAD, HTN, DM, High cholesterol, Former tobacco use, Family history Patient Location: Outpatient Stress Tech: Kalyani Mendoza NE Tech:Hope Fallon, ARRT, RT (R)(N) Ht: 5 ft 2 in Wt: 178 lbs Bra Size: 42B HR: 60 bpm BP: 159/53 mmHg BSA: 1.82 m2 BMI: 32.5 History: Chest pain, SOB, CAD, HTN, DM, High cholesterol, Former tobacco use, Family history Procedure: Patient received a 0.4 mg of intravenous Lexiscan, resting heart rate 60 bpm, resting blood pressure 159/53 mmHg, with Lexiscan maximum heart rate achived was 86 bpm which is Less than 85 % of the maximum predicted heart rate and blood pressure was 146/56 mmHg. With Lexiscan, patient denied any complaint of chest pain. Electrocardiogram Resting electrocardiogram showed sinus rhythm nonspecific ST-T changes, with Lexiscan less than 1.[address] segment depression noted from the baseline EKG. The EKG portion of the Lexiscan Myoview is nondiagnostic. Cardiac Stress and Resting SPECT Images: Cardiac Stress and Resting SPECT images were obtained using technetium 99m Myoview 32.2 mCi stress and 9.96 mCi at rest. Gated SPECT for analysis of segmental wall motion and calculation of the ejection fraction also done. Cardiac stress and resting SPECT images show decrease tracer activity in the anterior apical wall which partially improves on the resting images suggestive of mixed ischemia and scar, computer derived ejection fraction is 64% with mild anterior apical wall hypokinesis. Right ventricle is normal size and contractility. Conclusion: 1. The EKG portion of the Lexiscan Myoview is nondiagnostic. 2. Scintigraphic evidence of mixed ischemia and scar involving the anterior apical wall, computer derived ejection fraction 64% with segmental wall motion abnormality described above, right ventricle is normal size and contractility. 3. Abnormal Lexiscan Myoview study. Electronically signed by : Ishan Marie, 12/29/2019 20:24:00
--- NOTE | 2019-12-29 07:05 | HMH.ITSHM ---
Current Home Medications as stated by this patient Lashaun Sagastume or community health program representative. []VENLAFAXINE TRICAGRELOR RIVAROXABAN OMEPRAZOLE METFORMIN DIGOXIN LISINOPRIL LEVOTHYROXINE FUROSEMIDE FLUTICASONE FAMOTIDINE ATENOLOL ATORVASTATIN
== END ==
PROVIDERS: PCP Internal Medicine Adolescent Medicine; Visit Provider Internal Medicine Cardiovascular Disease
DX: I20.8 Other forms of angina pectoris; E11.8 Type 2 diabetes mellitus with unspecified complications; E78.2 Mixed hyperlipidemia; G47.33 Obstructive sleep apnea (adult) (pediatric); I10 Essential (primary) hypertension; I48.0 Paroxysmal atrial fibrillation; R06.09 Other forms of dyspnea; Z79.84 Long term (current) use of oral hypoglycemic drugs; Z87.891 Personal history of nicotine dependence
CPT/HCPCS: 78452; 93017; 93306; A9502; J2785

== ENCOUNTER 2020-01-20 08:08 | Day surgery (SDC) | payer MEDICARE, BC, SELFPAY ==
[2020-01-20] VITALS (13 sets, daily range): BP systolic 124–160; BP diastolic 51–71; PULSE 57–79; RESP 16; TEMP 36.7; O2SAT 96–100; BMI 32.5
[2020-01-20 08:46] LABS: Basophils % 0.6 % (0.1-2.0); Eosinophils # 0.3 K/mm3 (0.0-0.4); Hematocrit 33.5 % (37.0-47.0); Hemoglobin 11.4 g/dL (12.2-16.2); Lymphocytes # 2.1 K/mm3 (0.7-4.5); Lymphocytes % 30.2 % (10-50); Mean Corpuscular Hemoglobin 28.3 pg (27.0-31.2); Mean Corpuscular Volume 83.1 fl (81-99); Mean Platelet Volume 8.1 fl (7.4-10.4); Monocytes # 0.3 K/mm3 (0.1-1.0); Monocytes % 4.4 % (1.7-9.3); Neutrophils # 4.3 K/mm3 (1.8-7.8); Neutrophils % 60.8 % (37.0-80.0); Platelet Count 243 K/mm3 (142-424); Red Blood Count 4.03 M/mm3 (4.20-5.40); Red Cell Distribution Width 14.8 % (11.5-17.5); White Blood Count 7.1 K/mm3 (4.8-10.8)
[2020-01-20 08:51] LABS: Anion Gap 12.1 mEq/L (5-15); Blood Urea Nitrogen 18 mg/dl (7-17); Carbon Dioxide 29 mmol/L (22.0-30.0); Chloride 105 mmol/L (98-107); Creatinine Clearance Estimated 64 mL/min (50-200); Estimated Glomerular Filt Rate 82 ml/min (>60); GFR (African American) 99 ML/MIN (>60); Glucose 119 mg/dl (74-100); Potassium 4.1 mmoL/L (3.5-5.1); Sodium 142 mmol/L (136-145)
--- NOTE | 2020-01-20 10:00 | IR_ITS ---
APPROVED REPORT Patient Location: Outpatient Agent Producer: DOMINGA Benton RT (R) PROCEDURES Left heart catheterization Left ventriculogram Selective coronary angiogram Drug-eluting stent deployment to the mid left main artery extending into the proximal LAD INDICATION Coronary artery disease, Abnormal Myoview with anterior wall defect, Severe distal left main disease Informed consent was obtained prior to the procedure. COMPLICATIONS NONE Estimated Blood Loss: LESS THAN 10 ML TECHNIQUE One percent lidocaine used to anesthetize the right anterior aspect of the wrist. The right radial artery was accessed via the Seldinger technique. A 6 Citizen Of [place] sheath was placed in the right radial artery. 2.5 mg of verapamil, 800 mcg of nitroglycerin, 1mg Lidocaine and 5000 U Heparin were given through the arterial sheath. The trap catheter was also used to perform left heart catheterization, left ventriculogram and selective coronary angiogram. At the end of the diagnostic angiogram therapeutic heparin was administered. The left main artery stenosis exceeded 50% therefore based on the angina and accompanying abnormal Myoview it was felt this vessel should be revascularized. Therapeutic heparin was administered achieving a therapeutic ACT. And I Cathy left guide catheter was used to intubate the left main artery and a Choice PT extra-support wire was placed distally. A 4 mm x 22 mm resolute etta stent was deployed at 20 jennifer reducing the distal left main stenosis. A 4.5 x 8 mm resolute etta stent was deployed at 20 jennifer in the proximal portion of the stent as well as the distal left main artery extending into the ostium of the LAD. CHENCHO-3 flow was present before and after the procedure. There was no angiographic encroachment upon the circumflex artery. At the end of the procedure after achieving excellent angiographic results the apparatus was removed the sheath was removed and hemostasis was achieved using TR banding patient was transferred to the postop holding area in stable condition. ANGIOGRAPHIC RESULTS The left main artery Has a distal greater than 50% diameter stenosis The left anterior descending artery Has an ostial 30 to 40% stenosis followed by a stent which is widely patent with excellent distal transitioning. The remaining LAD is widely patent free of significant disease. The circumflex artery Is a small nondominant vessel free of disease The right coronary artery Is a large dominant vessel with a proximal 20% stenosis mid vessel 10% luminal irregularities and a distal 10 to 20% stenosis The LAND ventriculogram reveals normal at 65% The left ventricular end-diastolic pressure 20 mmHg IMPRESSION Severe distal left main stenosis greater than 50% which extends into a 30 to 40% ostial proximal LAD stenosis which was successfully stented with one stent extending from the left main artery into the proximal LAD reducing the severe stenosis to 0% Normal ejection fraction Mildly elevated LVEDP PLAN 1. Dual antiplatelet therapy 2. LDL less than 55 3. Cardiac rehabilitation 4. Avoidance of tobacco products 5. Risk factor modification Electronically signed by : Dagoberto Howe, 01/20/2020 11:30:53
--- NOTE | 2020-01-20 13:39 | HMH.PHACLD ---
Lashaun Sagastume has received discharge medication counseling on the following medications: PATIENT IS ALREADY TAKING ATENOLOL 50 MG DAILY, BRILINTA 90 MG BID, ATORVASTATIN 20 MG HS, AND LISINOPRIL 10 MG DAILY. MD HAVING PATIENT TAKE ASPIRIN 81 MG DAILY FOR 30 DAYS. PAST HX OF NOSE BLEEDS WITH ASPIRIN IN THE PAST. SPOKE WITH PATIENT ABOUT HOLDING METFORMIN UNTIL SATURDAY.
[2020-01-20 16:25] LABS: CATHL Activated Clotting Time 298 SEC (74-125)
== END 2020-01-20 14:37 | disposition home or self-care (01) ==
PROVIDERS: PCP Internal Medicine Adolescent Medicine; Visit Provider Internal Medicine
DX: E11.8 Type 2 diabetes mellitus with unspecified complications (principal); E78.2 Mixed hyperlipidemia; G47.33 Obstructive sleep apnea (adult) (pediatric); I10 Essential (primary) hypertension; I25.118 Atherosclerotic heart disease of native coronary artery with other forms of angina pectoris; I48.0 Paroxysmal atrial fibrillation; R94.39 Abnormal result of other cardiovascular function study; Z79.84 Long term (current) use of oral hypoglycemic drugs; E03.9 Hypothyroidism, unspecified; Z79.01 Long term (current) use of anticoagulants; Z88.8 Allergy status to other drugs, medicaments and biological substances
CPT/HCPCS: 80048; 85025; 85347; 92928; 93458; 99152; C1725; C1769; C1876; C9600; J1644; Q9967

== ENCOUNTER 2020-01-23 18:45 | Emergency (ER) | payer MEDICARE, BC, SELFPAY ==
[2020-01-23 18:57] VITALS: BP 141/55; PULSE 59; RESP 18; TEMP 36.7; O2SAT 97; BMI 34.0
--- NOTE | 2020-01-23 19:00 | XR_ITS ---
PROCEDURE: XR KNEE LT 3V CLINICAL INDICATION: knot Palpable abnormality of the left knee COMPARISON: No exams were available for comparison FINDINGS: No fracture or dislocation. No lytic or blastic change. There is normal mineralization. Mild osteoarthritic changes are present at the medial compartment Other findings:There is focal soft tissue swelling along the lateral aspect of the knee. This is lateral to the fibular head. No underlying osseous abnormality. No abnormal soft tissue calcifications. IMPRESSION: Mild osteoarthritis. Focal soft tissue swelling laterally at the level of the fibular head Dictated b Isaias Sands MD 01/24/2020 07:16 Isaias Sadns MD in [place] 01/24/2020 07:16
--- NOTE | 2020-01-23 19:02 | HMH.EDUTC ---
[facility] [place] Impression: Hematoma Disposition: Home, Self-Care Condition on Discharge: Good Instructions: DI for Hematoma (Bruise) Additional Instructions: follow up with pcp in am if symtptoms worsen or do not improve return or be seen in ed Referrals: Bhupendra Smith MD [Primary Care Provider] - Time of Disposition: 19:11 Medical Decision Making - Tam Inquiry Pt receiving controlled substance: No Vital Signs: 01/23/20 18:57 Temperature 98.0 F Temperature Source Oral Pulse Rate [Radial] 59 L Respiratory Rate 18 Blood Pressure [Right Arm] 141/55 H Blood Pressure Mean [Right Arm] 83 Blood Pressure Source [Right Arm] Automatic Cuff Blood Pressure Position [Right Arm] Sitting 02 Sat by Pulse Oximetry 97 Oxygen Delivery Method Room Air Orders (Tests/Meds): ORDERS Category Date Time Status XR knee LT 3V Stat Exams 01/23/20 19:00 [place] [facility] [place] - General Chief complaint: Urgent [facility] Stated complaint: Knot on knee Time Seen by Provider: 01/23/20 19:03 Mode of Arrival: Ambulatory Source of Information: Patient Limitations: No Limitations Description of Symptoms (Recalled from Triage Doc. by RN): knot on side of left knee, had heart stent this past saturday HEENT Symptoms (Recalled from RN notes): No Resp Symptoms (Recalled from RN notes): No Skin Symptoms (Recalled from RN notes): No MS Symptoms (Recalled from RN notes): Yes Functional Status (Recalled from RN notes): wnl - History of Present Illness Provider Complaint: 74 yr old female presents for knot to the left leg. pt states she has no injury but takes blood thinners. - Related Data Home Medications Medication Instructions Recorded Confirmed furosemide 20 mg tablet 20 mg PO DAILY 06/27/17 01/20/20 metformin 500 mg tablet 500 mg PO DAILY tab 06/27/17 01/20/20 fluticasone propionate 50 1 spray INTRANASAL DAILY g 10/17/17 01/20/20 mcg/actuation nasal spray,suspension lactobacillus combination no.8 3 1 cap PO DAILY cap 10/17/17 01/20/20 billion cell capsule levothyroxine 150 mcg tablet 150 mcg PO DAILY 04/17/18 01/20/20 Digoxin 125 mcg PO DAILY 06/14/18 01/20/20 Atorvastatin Calcium [Lipitor 40mg 40 mg PO HS 06/25/18 01/20/20 Tablet] famotidine 20 mg tablet 20 mg PO BID 06/25/19 01/20/20 omeprazole 20 mg capsule,delayed 20 mg PO BID cap 07/10/19 01/20/20 release venlafaxine 150 mg 150 mg PO DAILY cap 12/24/19 01/20/20 capsule,extended release 24 hr Previous Rx's Medication Instructions Recorded lisinopril 20 mg tablet 10 mg PO DAILY #60 tab 04/30/19 rivaroxaban 20 mg tablet 20 mg PO DAILY #30 tab 09/21/19 ticagrelor 90 mg tablet 90 mg PO BID #60 tab 10/23/19 atenolol 50 mg tablet 50 mg PO DAILY #90 tab 12/01/19 Allergies Allergy/AdvReac Type Severity Reaction Status Date / Time house dust Allergy Verified 01/20/20 08:45 pollen extracts Allergy Verified 01/20/20 08:45 ondansetron AdvReac Verified 01/20/20 08:45 [From Zofran (as hydrochloride)] - Worker's Comp Is this a Worker's Comp case?: No H History - Hepatitis A Screen Drug use history?: No High risk sexual behaviors?: No History of sexually transmitted infection?: No Currently employed?: No Childcare worker?: No Do you have indoor plumbing?: Yes Do you have electricity?: Yes Attestation statement:: This patient has been screened for Hepatitis A risk factors. I have reviewed the patient's past medical history: Yes Medical History: Reports:: Arrhythmia, Asthma, Atrial Fibrillation, Cancer, Depression, Gastroesophageal Reflux Disease(GERD), Hyperlipidemia, Hypertension, Palpitations, Peripheral Artery Disease Denies:: Diabetes Mellitus Type 2, Seizures Other Medical History: Reports: Arthritis, Cataracts, Fibromyalgia, Hypothyroidism Laterality Cases: Right: Breast Biopsy, Bilateral: Lumpectomy, Tonsillectomy Other Surgeries: Yes: Cancer Surgery, Cardiac Catheterization, Cholecystect
[2020-01-23 20:16] VITALS: BP 141/55; PULSE 59; RESP 18; TEMP 36.7; O2SAT 97
== END 2020-01-23 20:17 | disposition home or self-care (01) ==
PROVIDERS: Emergency Provider Nurse Practitioner Family; PCP Internal Medicine Adolescent Medicine
DX: M25.562 Pain in left knee (principal); E11.9 Type 2 diabetes mellitus without complications; I48.91 Unspecified atrial fibrillation; E78.5 Hyperlipidemia, unspecified; I10 Essential (primary) hypertension; K21.9 Gastro-esophageal reflux disease without esophagitis; M79.7 Fibromyalgia; E03.9 Hypothyroidism, unspecified; Z87.891 Personal history of nicotine dependence
CPT/HCPCS: G0463; 73562; 99201

== ENCOUNTER → 2020-05-02 13:29 | Outpatient (CLI) | payer MEDICARE, BC, SELFPAY ==
[2020-05-02 14:48] LABS: Basophils % 0.7 % (0.1-2.0); Eosinophils # 0.2 K/mm3 (0.0-0.4); Hematocrit 36.4 % (37.0-47.0); Hemoglobin 11.5 g/dL (12.2-16.2); Lymphocytes # 1.6 K/mm3 (0.7-4.5); Lymphocytes % 27.5 % (10-50); Mean Corpuscular HGB Conc 31.4 g/dL (31.8-35.4); Mean Corpuscular Hemoglobin 25.9 pg (27.0-31.2); Mean Corpuscular Volume 82.5 fl (81-99); Mean Platelet Volume 8.2 fl (7.4-10.4); Monocytes # 0.3 K/mm3 (0.1-1.0); Monocytes % 4.4 % (1.7-9.3); Neutrophils # 3.8 K/mm3 (1.8-7.8); Neutrophils % 64.4 % (37.0-80.0); Platelet Count 283 K/mm3 (142-424); Red Blood Count 4.42 M/mm3 (4.20-5.40); Red Cell Distribution Width 15.3 % (11.5-17.5); White Blood Count 5.9 K/mm3 (4.8-10.8)
[2020-05-02 15:35] LABS: Anion Gap 11.4 mEq/L (5-15); Blood Urea Nitrogen 16 mg/dl (7-17); Calcium 9.5 mg/dl (8.4-10.2); Carbon Dioxide 31 mmol/L (22.0-30.0); Chloride 101 mmol/L (98-107); Estimated Glomerular Filt Rate 70 ml/min (>60); GFR (African American) 85 ML/MIN (>60); Glucose 100 mg/dl (74-100); Potassium 4.4 mmoL/L (3.5-5.1); Sodium 139 mmol/L (136-145)
[2020-05-02 16:26] LABS: Coronavirus 19 IgG Antibody Negative (Negative); Coronavirus 19 IgM Antibody Negative (Negative)
== END ==
PROVIDERS: Visit Provider Internal Medicine
DX: Z01.818 Encounter for other preprocedural examination (principal); I20.0 Unstable angina
CPT/HCPCS: 36415; 80048; 85025; 86328

== ENCOUNTER 2020-05-03 11:25 | Observation (INO) | payer MEDICARE, BC, SELFPAY ==
[2020-05-03] VITALS (25 sets, daily range): BP systolic 113–175; BP diastolic 48–76; PULSE 52–83; RESP 12–18; TEMP 36.5–37.1; O2SAT 90–100; BMI 33.4; BMI 32.7
--- NOTE | 2020-05-03 | IR_ITS ---
APPROVED REPORT Patient Location: [facility] Button Cutting Machine Operator: DOMINGA Denise RT (R) PROCEDURES Left heart catheterization Left ventriculogram Selective coronary angiogram INDICATION Coronary artery disease, Accelerated angina pectoris, History of left main stenting Informed consent was obtained prior to the procedure. COMPLICATIONS NONE Estimated Blood Loss: LESS THAN 10 ML TECHNIQUE One percent lidocaine used to anesthetize the right anterior aspect of the wrist. The right radial artery was accessed via the Seldinger technique. A 6 Norwegian sheath was placed in the right radial artery. 2.5 mg of verapamil, 800 mcg of nitroglycerin, 1mg Lidocaine and 5000 U Heparin were given through the arterial sheath. The trap catheter was also used to perform left heart catheterization, left ventriculogram and selective coronary angiogram. At the end of the procedure the sheath was removed good hemostasis was achieved using Traclet band, patient was transferred to the postop holding area in stable condition. ANGIOGRAPHIC RESULTS The left main artery Has a stent in the mid segment which extends into the LAD. The stent is widely patent free of in-stent restenosis The left anterior descending artery Has a stent originating off the left main artery extending through the proximal LAD and is widely patent with no angiographic in-stent restenosis and excellent proximal distal transitioning there is no angiographic jailing of the first diagonal artery the mid LAD has a 30% stenosis along a tortuous bend The circumflex artery Is nondominant with mild luminal irregularities and no angiographic evidence of left main jailing The right coronary artery Is a large dominant vessel with mild 10% diffuse luminal irregularities The LAND ventriculogram reveals Hyperdynamic at 70 to 75% The left ventricular end-diastolic pressure 10 mmHg IMPRESSION Widely patent coronary arteries as described above with widely patent stents Slightly hyperdynamic ejection fraction Normal left ventricular end-diastolic pressure PLAN 1. Medical management 2. Evaluation of noncardiac chest pain Electronically signed by : Dagoberto Howe, 05/03/2020 12:55:08
--- NOTE | 2020-05-03 11:19 | ECG_ITS ---
APPROVED REPORT Exam: Resting ECG HR:73 bpm ECG Measurements Heart Rate 73 AXES QRSd 70 QRS 10 QT 352 T -17 QTc 387 Conclusion Atrial fibrillation with a competing junctional pacemaker Nonspecific T wave abnormality, probably digitalis effect Abnormal ECG Electronically signed by : Bhupendra Smith, 05/04/2020 07:25:48
--- NOTE | 2020-05-03 11:28 | HMH.EDGENADL ---
ED Disposition Clinical Impression: Chest pain Qualifiers: Chest pain type: precordial pain Qualified Code(s): R07.2 - Precordial pain Atrial fibrillation Qualifiers: Atrial fibrillation type: unspecified Qualified Code(s): I48.91 - Unspecified atrial fibrillation Disposition: Admitted as Observation Condition on Discharge: Fair - Critical Care Critical Care Time: No Attestation: On , the high probability of a clinically significant, sudden or life threatening deterioration of the following system(s) required my full and direct attention, intervention and personal management. The time I documented below is in addition to time spent performing reported procedures but includes the following listed in this critical care notation. Medical Decision Making - Tam Inquiry Pt receiving controlled substance: No Vital Signs: 05/03/20 11:26 05/03/20 11:48 Temperature 98.7 F Temperature Source Oral Pulse Rate [Right Radial] 83 64 Respiratory Rate 17 17 Blood Pressure [Right Arm] 175/76 H 143/65 H Blood Pressure Mean [Right Arm] 109 91 02 Sat by Pulse Oximetry 98 Oxygen Delivery Method Room Air - Lab Data Lab Results 05/03/20 11:28: WBC 7.1, RBC 5.00, Hgb 12.9 D, Hct 40.9, MCV 81.9, MCH 26.1 L, MCHC 31.8, RDW 15.3, Plt Count 316, MPV 7.8, Neut % (Auto) 64.6, Lymph % (Auto) 27.7, [place] % (Auto) 3.9, Eos % (Auto) 3.0, Baso % (Auto) 0.8, Neut # (Auto) 4.6, Lymph # (Auto) 2.0, [place] # (Auto) 0.3, Eos # (Auto) 0.2, Baso # (Auto) 0.1 05/03/20 11:28: Sodium 140, Potassium 4.1, Chloride 104, Carbon Dioxide 32 H, Anion Gap 8.1, BUN 17, Creatinine 0.90, Estimated Creat Clear 64, Estimated GFR 61, Est GFR ( Amer) 74, Glucose 122 H D, Calcium 9.0, Total Bilirubin 0.5, AST 27, ALT 19, Alkaline Phosphatase 103, Troponin I < 0.01, Total Protein 6.8, Albumin 3.9, Globulin 2.9, Albumin/Globulin Ratio 1.3, TSH 0.39 L 05/03/20 11:28: Free T4 1.35 05/03/20 11:28: Digoxin 0.70 05/03/20 11:28: NT-Pro-B Natriuret Pep 2480 H 05/03/20 11:28: SARS-CoV-2 IgG Ab (Rapid) Negative, SARS-CoV-2 IgM Ab (Rapid) Negative Result diagrams: 05/03/20 11:28 05/03/20 11:28 Orders (Tests/Meds): ED MEDICATIONS Generic Name Dose Route Start Last Admin Trade Name Freq PRN Reason Stop Dose Admin Atenolol 50 mg 05/04/20 09:00 Atenolol 50mg Tablet PO 06/03/20 08:59 DAILY [facility] Atorvastatin Calcium 40 mg 05/03/20 21:00 Atorvastatin 40mg Tablet PO 06/02/20 20:59 HS [facility] Digoxin 125 mcg 05/04/20 09:00 Digoxin 0.125mg Tablet PO 06/03/20 08:59 DAILY [facility] Famotidine 20 mg 05/03/20 21:00 Famotidine 20mg Tablet PO 06/02/20 20:59 BID [facility] Fentanyl Citrate 25 mcg 05/03/20 13:38 Fentanyl 100mcg/2ml Vial IV 06/02/20 13:37 Q3MINP PRN Moderate to Severe Pain Fentanyl Citrate 50 mcg 05/03/20 13:38 Fentanyl 250mcg/5ml Vial IV 06/02/20 13:37 Q3MINP PRN Moderate to Severe Pain Fentanyl Citrate 50 mcg 05/03/20 13:38 Fentanyl 100mcg/2ml Vial IV 06/02/20 13:37 Q3MINP PRN Moderate to Severe Pain Fentanyl Citrate 25 mcg 05/03/20 13:38 Fentanyl 250mcg/5ml Vial IV 06/02/20 13:37 Q3MINP PRN Moderate to Severe Pain Flumazenil 0.2 mg 05/03/20 13:38 Flumazenil 0.1mg/Ml 5ml Vial IV 06/02/20 13:37 NEEDED PRN Sedation Fluticasone Propionate 1 spr 05/04/20 09:00 Fluticasone Prop 50mcg Nasal [place] 16gm NS 06/03/20 08:59 DAILY [facility] Furosemide 20 mg 05/04/20 09:00 Furosemide 20mg Tablet PO 06/03/20 08:59 DAILY [facility] Heparin Sodium (Porcine) 10,000 unit 05/03/20 13:38 Heparin 1,000 Units/Ml 10ml Vial (Pipelines Supervisor) IV 06/02/20 13:37 NEEDED PRN Emergency Box Knotting Machine Operator Sodium Chloride 1,000 mls @ 25 mls/hr 05/03/20 13:38 Sod Chlor 0.9% 1000ml Bag IV 06/02/20 13:37 .Q25H [facility] Levothyroxine Sodium 150 mcg 05/04/20 09:00 Levothyroxine 150mcg (0.15mg)Tab PO 06/03/20 08:59 DAILY [facility] Lisino
--- NOTE | 2020-05-03 11:29 | XR_ITS ---
PROCEDURE: XR CHEST 2V CLINICAL HISTORY: CHEST PAIN COMPARISON: CT ABDPELW CT ABD PELVIS W/ CONTRAST from 07/13/2016 CR CXR1 CHEST-PORTABLE from 12/18/2016 CR CXR2V XR chest 2V from 06/14/2018 FINDINGS: The cardiomediastinal silhouette and pulmonary vascularity are within normal limits. Coronary artery stent is present on the left. Lungs are clear. Clips are present along the right lower hemithorax No acute bony abnormalities. IMPRESSION: No change with no acute finding Dictated by: Isaias Sands MD 05/03/2020 15:17 Isaias Sands MD in [place] 05/03/2020 15:17
[2020-05-03 11:39] LABS: Basophils # 0.1 K/mm3 (0-0.2); Basophils % 0.8 % (0.1-2.0); Eosinophils # 0.2 K/mm3 (0.0-0.4); Hematocrit 40.9 % (37.0-47.0); Lymphocytes % 27.7 % (10-50); Mean Corpuscular HGB Conc 31.8 g/dL (31.8-35.4); Mean Corpuscular Hemoglobin 26.1 pg (27.0-31.2); Mean Corpuscular Volume 81.9 fl (81-99); Mean Platelet Volume 7.8 fl (7.4-10.4); Monocytes # 0.3 K/mm3 (0.1-1.0); Monocytes % 3.9 % (1.7-9.3); Neutrophils # 4.6 K/mm3 (1.8-7.8); Neutrophils % 64.6 % (37.0-80.0); Platelet Count 316 K/mm3 (142-424); Red Cell Distribution Width 15.3 % (11.5-17.5); White Blood Count 7.1 K/mm3 (4.8-10.8)
[2020-05-03 11:42] LABS: Chloride 104 mmol/L (98-107)
[2020-05-03 11:43] LABS: Potassium 4.1 mmoL/L (3.5-5.1); Sodium 140 mmol/L (136-145)
--- NOTE | 2020-05-03 11:43 | PC.NURSE ---
placed call for cardiology to consult
[2020-05-03 11:45] LABS: Alanine Aminotransferase 19 U/L (12-78); Alkaline Phosphatase 103 U/L (38-126); Anion Gap 8.1 mEq/L (5-15); Aspartate Amino Transferase 27 U/L (14-36); Bilirubin,Total 0.5 mg/dl (0.2-1.3); Blood Urea Nitrogen 17 mg/dl (7-17); Carbon Dioxide 32 mmol/L (22.0-30.0); Creatinine Clearance Estimated 64 mL/min (50-200); Estimated Glomerular Filt Rate 61 ml/min (>60); GFR (African American) 74 ML/MIN (>60)
[2020-05-03 11:46] LABS: Albumin Level 3.9 g/dl (3.5-5.0); Albumin/Globulin Ratio 1.3 (1.1-1.8); Globulin 2.9 g/dL (1.3-3.2); Glucose 122 mg/dl (74-100); Total Protein,Serum 6.8 g/dl (6.3-8.2)
--- NOTE | 2020-05-03 11:50 | PC.NURSE ---
Jai Mirza at bedside for patient consult.
[2020-05-03 11:55] LABS: NT Pro Brain Natriuretic Pep. 2480 pg/mL (0-125)
--- NOTE | 2020-05-03 12:02 | PC.NURSE ---
report to [place], receiving labor economist RN. pt transported to labor economist via wheelchair at this time.
[2020-05-03 12:03] LABS: Hemoglobin 12.9 g/dL (12.2-16.2); Troponin I < 0.01 ng/ml (0.00-0.034)
--- NOTE | 2020-05-03 12:04 | PC.NURSE ---
KISHA CONTRERAS speaking with Dr. Chacko
--- NOTE | 2020-05-03 12:06 | HMH.CNCARD ---
History of Present Illness Consult date: 05/03/20 Requesting physician: Bhupendra Smith Consult reason: chest pain Chief complaint: Chest pain, shortness of breath Additional Medical History:: 1. Hypertension A. Echo, 12/2019, 1. Mild biatrial enlargement, normal left ventricular size, mild concentric left ventricular hypertrophy, visually estimated ejection fraction 55% with no regional wall motion abnormality, diastolic parameters are inconclusive. 2. Moderate aortic, mild mitral and tricuspid regurgitation. 3. No significant pericardial effusion noted. 2. Hyperlipidemia 3. Diabetes mellitus type 2 4. Coronary artery disease A. Acute coronary syndrome status post LAD stent, 05/2019 B. Unstable angina with abnormal Ryder Myoview resulting in left heart catheterization, 01/2020 with stent to left main extending into LAD ANGIOGRAPHIC RESULTS The left main artery Has a distal greater than 50% diameter stenosis The left anterior descending artery Has an ostial 30 to 40% stenosis followed by a stent which is widely patent with excellent distal transitioning. The remaining LAD is widely patent free of significant disease. The circumflex artery Is a small nondominant vessel free of disease The right coronary artery Is a large dominant vessel with a proximal 20% stenosis mid vessel 10% luminal irregularities and a distal 10 to 20% stenosis The LAND ventriculogram reveals normal at 65% The left ventricular end-diastolic pressure 20 mmHg IMPRESSION Severe distal left main stenosis greater than 50% which extends into a 30 to 40% ostial proximal LAD stenosis which was successfully stented with one stent extending from the left main artery into the proximal LAD reducing the severe stenosis to 0% Normal ejection fraction Mildly elevated LVEDP 5. PETRONA treated with UPPP 6. Moderate aortic regurgitation by echo, 12/2019 History of present illness: 74-year-old white female with known coronary artery disease and recent coronary stenting to the left main/LAD presented to the emergency department with increasing episodes of shortness of breath and chest discomfort with exertion that improves with rest. EKG shows atrial fibrillation with no acute ST segment changes and controlled ventricular response. Initial troponin is normal. Patient was seen in the office last week for the same symptoms and was scheduled for cardiac catheterization tomorrow so cardiology was consulted for evaluation today. [facility] History Medical History: Reports:: Arrhythmia, Asthma, Atrial Fibrillation, Cancer, Coronary Artery Disease, Depression, Diabetes Mellitus Type 2, Gastroesophageal Reflux Disease(GERD), Hyperlipidemia, Hypertension, Palpitations, Peripheral Artery Disease Denies:: Diabetes Mellitus Type 1, Seizures *Have you ever received a pneumonia vaccine?: Yes *Have you received a flu vaccine this season?: Yes Other Medical History: Reports: Arthritis, Cataracts, Fibromyalgia, Hypothyroidism Laterality Cases: Right: Breast Biopsy, Bilateral: Lumpectomy, Tonsillectomy Other Surgeries: Yes: Cancer Surgery, Cardiac Catheterization, Cholecystectomy, Colonoscopy, Coronary Stent, EGD, Hysterectomy-Total, Other Amputation: No Fractures: No - *Social History Smoking Status: Former smoker Tobacco Type: cigarettes # Packs/Day (cigarettes): 1 #Yrs smoked (if former smoker): 30 Alcohol Intake: never Alcohol Intake Frequency:: holidays/special occasions only Substance Use Type: denies use *Occupational Status:: retired Housing: house Household Members: spouse *Travel in the last 8 weeks: None - Psychiatric History Pschychiatric History:: Reports:: Depression Family Hx:: Asthma, Cancer, Coronary Artery Disease, Diabetes, Heart Attack, Hyperlipidemia, Hypertension, Stroke Meds Home Medications Medication Instructions Recorded Confirmed Type furosemide 20 mg tablet 20 mg PO DAILY 06/27/17 04/29/20 History metformin 500 mg tablet 500 mg PO
[2020-05-03 12:17] LABS: Thyroid Stimulating Hormone 0.39 uIU/mL (0.465-4.68)
--- NOTE | 2020-05-03 12:19 | PC.NURSE ---
care management called for admission
[2020-05-03 12:45] LABS: Free T4 (Free Thyroxine) 1.35 ng/dl (0.78-2.19)
[2020-05-03 13:32] LABS: Coronavirus 19 IgG Antibody Negative (Negative); Coronavirus 19 IgM Antibody Negative (Negative)
--- NOTE | 2020-05-03 14:06 | HMH.PHAVTE ---
[facility] VTE Monitoring - Patient Demographics Admission date: 05/03/20 Report Date: 05/03/20 Time: 14:06 Allergies/Adverse Reactions: Patient Allergies house dust Allergy (Verified 05/03/20 11:29) pollen extracts Allergy (Verified 05/03/20 11:29) ondansetron [From Zofran (as hydrochloride)] Adverse Reaction (Verified 05/03/20 11:29) Height: 1.55 m Weight: 80.286 kg Patient Problems: Current Active Problems Unstable angina (Acute) History of coronary artery stent placement (Acute) Elevated brain natriuretic peptide (BNP) level (Acute) Chest pain (Acute) CAD (coronary artery disease) (Chronic) Atrial fibrillation (Chronic) Diabetes mellitus (Chronic) Hyperlipidemia (Chronic) Hypertensive disorder (Chronic) - VTE Risk Labs: VTE Related Lab Results Hgb 12.9 g/dL (12.2-16.2) D 05/03/20 11:28 Hct 40.9 % (37.0-47.0) 05/03/20 11:28 Plt Count 316 K/mm3 (142-424) 05/03/20 11:28 BUN 17 mg/dl (7-17) 05/03/20 11:28 Creatinine 0.90 mg/dl (0.52-1.04) 05/03/20 11:28 Estimated Creat Clear 64 mL/min (50-200) 05/03/20 11:28 - Prophylaxis VTE Prophylaxis Ordered?: Yes Types of VTE Prophylaxis: TEDS Knee High, Pharmacological Location of Applied Device: Bilateral Lower Extremeties Pharmacologic Type: Other (XARELTO)
--- NOTE | 2020-05-03 14:44 | HMH.PHAINT ---
MEDICATION RECONCILIATION COMPLETED ON PATIENT USING EXTERNAL FILL HISTORY FROM PHARMACY. -CRISTÓBAL MAGANA, RUSTYD
--- NOTE | 2020-05-03 14:56 | HMH.HP ---
*Admission Date: 05/03/20 *Chief complaint: chest pain, unstable angina *History of present illness: Ms. Sagastume is a 74-year-old white female with known coronary artery disease and recent coronary stenting to the left main/LAD. She presented to the ER with increasing frequency and worsening episodes of shortness of breath and chest discomfort. She was scheduled to have outpatient cath performed tomorrow but due to worsening instability, came to the ER for evaluation. Chest discomfort most prominent with exertion and improves with rest. Initial work-up in the ER showed atrial fibrillation on EKG, normal troponin, severely elevated BNP of 2400. Cardiology was consulted, decision made to take patient to the [facility] today. Admitted to medicine post-cath for further management and observation. On interview, patient states she is feeling better with no chest pain. Still groggy from procedure but overall alert and oriented. No worsening shortness of breath, nausea, vomiting, confusion, headache. Sees Cards note for full cardiac Hx. [facility] History I have reviewed the patient's past medical history: Yes Medical History: Reports:: Arrhythmia, Asthma, Atrial Fibrillation, Cancer (lumpctomy x 2), Coronary Artery Disease, Depression, Diabetes Mellitus Type 2, Gastroesophageal Reflux Disease(GERD), Hyperlipidemia, Hypertension, Palpitations, Peripheral Artery Disease Denies:: Diabetes Mellitus Type 1, MRSA, Seizures *Have you ever received a pneumonia vaccine?: Yes *Have you received a flu vaccine this season?: Yes Other Medical History: Reports: Arthritis, Cataracts, Fibromyalgia, Hypothyroidism Laterality Cases: Right: Breast Biopsy, Bilateral: Lumpectomy, Tonsillectomy Other Surgeries: Yes: Cancer Surgery, Cardiac Catheterization, Cholecystectomy, Colonoscopy, Coronary Stent, EGD, Hysterectomy-Total, Other Amputation: No Fractures: No - *Social History Smoking Status: Former smoker Tobacco Type: cigarettes # Packs/Day (cigarettes): 1 #Yrs smoked (if former smoker): 30 Alcohol Intake: never Alcohol Intake Frequency:: holidays/special occasions only Substance Use Type: denies use *Occupational Status:: retired Housing: house Household Members: spouse *Travel in the last 8 weeks: None - Psychiatric History Pschychiatric History:: Reports:: Depression Family Hx:: Asthma, Cancer, Coronary Artery Disease, Diabetes, Heart Attack, Hyperlipidemia, Hypertension, Stroke Review of Systems - Review of Systems Review of systems:: pertinent systems reviewed and negative unless documented below (14 point review of systems performed, pertinent positives and negatives as per HPI) Meds Home Medications Medication Instructions Recorded Confirmed Type furosemide 20 mg tablet 20 mg PO DAILY 06/27/17 05/03/20 History metformin 500 mg tablet 500 mg PO DAILY tab 06/27/17 05/03/20 History fluticasone propionate 50 1 spray NS DAILY g 10/17/17 05/03/20 History mcg/actuation nasal spray,suspension lactobacillus combination no.8 3 1 cap PO DAILY cap 10/17/17 05/03/20 History billion cell capsule levothyroxine 150 mcg tablet 150 mcg PO DAILY 04/17/18 05/03/20 History Digoxin 125 mcg PO DAILY 06/14/18 05/03/20 History Atorvastatin Calcium [Lipitor 40mg 40 mg PO HS 06/25/18 05/03/20 History Tablet*] lisinopril 20 mg tablet 10 mg PO DAILY #60 tab 04/30/19 05/03/20 Rx famotidine 20 mg tablet 20 mg PO BID 06/25/19 05/03/20 History omeprazole 20 mg capsule,delayed 20 mg PO BID cap 07/10/19 05/03/20 History release atenolol 50 mg tablet 50 mg PO DAILY #90 tab 12/01/19 05/03/20 Rx venlafaxine 150 mg 150 mg PO DAILY cap 12/24/19 05/03/20 History capsule,extended release 24 hr rivaroxaban 20 mg tablet 20 mg PO DAILY #90 tab 02/08/20 05/03/20 Rx ticagrelor 90 mg tablet 90 mg PO BID #60 tab 04/11/20 05/03/20 Rx Allergies Allergy/AdvReac Type Severity Reaction Status Date / Time house dust Allergy Verified 05/03/20 11:29 pollen extracts Jose Juan
--- NOTE | 2020-05-03 19:21 | PC.NURSE ---
Pt alert and oriented and able to make need known. Afib on tele controlled. VSS. Has done well since heart cath. Did leave traclet in lace slightly longer r/t oozing from R wrist cath site. Dsg is at this time and is cdi. CB in reach. Home meds in drawer locked and cpap brought in and in room. Report given to Masterson RN. Has had x 4 voids Did educate pt that we needed to measure output and applied hat in bathroom. Have encouraged pt to call out for assistance.
[2020-05-04] VITALS: BP 154/75; PULSE 60; PULSE 81; RESP 18; TEMP 36.7; O2SAT 97
[2020-05-04 03:14] VITALS: BP 127/72; PULSE 91; RESP 18; TEMP 36.6; O2SAT 96
--- NOTE | 2020-05-04 03:43 | PC.NURSE ---
Pt A&OX4 lungs CTA pt denies SOA or pain. afib on tele. dressing on rt wrist in place c/d/i. pt has rested quietly this shift
[2020-05-04 04:00] VITALS: PULSE 90
[2020-05-04 05:06] VITALS: BMI 32.1
[2020-05-04 06:46] LABS: Basophils # 0.1 K/mm3 (0-0.2); Basophils % 0.6 % (0.1-2.0); Eosinophils # 0.2 K/mm3 (0.0-0.4); Eosinophils % 2.9 % (0.1-12.0); Hematocrit 39.6 % (37.0-47.0); Hemoglobin 12.6 g/dL (12.2-16.2); Lymphocytes # 2.6 K/mm3 (0.7-4.5); Lymphocytes % 31.7 % (10-50); Mean Corpuscular HGB Conc 31.7 g/dL (31.8-35.4); Mean Corpuscular Hemoglobin 26.1 pg (27.0-31.2); Mean Corpuscular Volume 82.3 fl (81-99); Mean Platelet Volume 7.9 fl (7.4-10.4); Monocytes # 0.4 K/mm3 (0.1-1.0); Monocytes % 4.5 % (1.7-9.3); Neutrophils # 4.9 K/mm3 (1.8-7.8); Neutrophils % 60.3 % (37.0-80.0); Platelet Count 291 K/mm3 (142-424); Red Blood Count 4.81 M/mm3 (4.20-5.40); Red Cell Distribution Width 15.5 % (11.5-17.5); White Blood Count 8.1 K/mm3 (4.8-10.8)
[2020-05-04 06:54] LABS: Chloride 103 mmol/L (98-107); Sodium 140 mmol/L (136-145)
[2020-05-04 06:57] LABS: Blood Urea Nitrogen 18 mg/dl (7-17); Creatinine Clearance Estimated 61 mL/min (50-200); Estimated Glomerular Filt Rate 70 ml/min (>60); GFR (African American) 85 ML/MIN (>60)
[2020-05-04 06:58] LABS: Calcium 8.7 mg/dl (8.4-10.2); Carbon Dioxide 32 mmol/L (22.0-30.0); Glucose 116 mg/dl (74-100)
--- NOTE | 2020-05-04 07:32 | SW/DCPLANNER ---
PATIENT ADMITTED TO [facility] AND WAS SEEN BY CARDIOLOGY, SHE IS GOING TO DISCHARGE HOME WITH MEDICAL MANAGEMENT.. THERE ARE NO HOME CARE ORDERS FOR THIS PATIENT.. PATIENT RESIDES WITH SPOUSE IN [facility]... WILL FOLLOW UP WITH ....
--- NOTE | 2020-05-04 07:58 | HMH.DCSUM ---
General - General Admission date:: 05/03/20 Discharge date: 05/04/20 HPI HPI: Ms. Sagastume is a 74-year-old white female with known coronary artery disease and recent coronary stenting to the left main/LAD. She presented to the ER with increasing frequency and worsening episodes of shortness of breath and chest discomfort. She was scheduled to have outpatient cath performed tomorrow but due to worsening instability, came to the ER for evaluation. Chest discomfort most prominent with exertion and improves with rest. Initial work-up in the ER showed atrial fibrillation on EKG, normal troponin, severely elevated BNP of 2400. Cardiology was consulted, decision made to take patient to the [facility] today. Admitted to medicine post-cath for further management and observation. On interview, patient states she is feeling better with no chest pain. Still groggy from procedure but overall alert and oriented. No worsening shortness of breath, nausea, vomiting, confusion, headache. Sees Cards note for full cardiac Hx. Hospital Course Hospital Course: Patient was admitted, did very nicely. Ruled out for IA, taken for diagnostic catheterization and found to have open coronary arteries with no evidence of need for intervention. She did well over the next night and this morning feels much better. Plan will be to discharge home with enhanced GERD treatment and I will follow her up closely in my office. Objective Vital signs: Temp Pulse Resp BP Pulse Ox 97.9 F 90 18 127/72 96 05/04/20 03:14 05/04/20 04:00 05/04/20 03:14 05/04/20 03:14 05/04/20 03:14 no acute distress - *Routine HEENT Exam Head: Present: normocephalic Eye: Present: EOMI, PERRL, other (Left scleral changes from prior operations as noted) ENT: Present: mucous membranes moist - *Routine Neck Exam Present: supple - *Routine Respiratory Exam Present: CTA bilaterally - *Routine Cardiovascular Exam Present: RRR - *Routine Abdominal Exam Present: soft, normoactive bowel sounds. Absent: tenderness - *Routine Extremities Exam Absent: cyanosis, clubbing, edema - *Routine Skin Exam Present: warm. Absent: rash - Detailed Eye Exam Eyelids: Bilateral normal inspection Results Labs on day of discharge: Labs from last 24 hours 05/04/20 05/04/20 05/03/20 06:15 06:15 11:28 WBC 8.1 RBC 4.81 Hgb 12.6 Hct 39.6 MCV 82.3 MCH 26.1 L MCHC 31.7 L RDW 15.5 Plt Count 291 MPV 7.9 Neut % (Auto) 60.3 Lymph % (Auto) 31.7 [place] % (Auto) 4.5 Eos % (Auto) 2.9 Baso % (Auto) 0.6 Neut # (Auto) 4.9 Lymph # (Auto) 2.6 [place] # (Auto) 0.4 Eos # (Auto) 0.2 Baso # (Auto) 0.1 Sodium 140 Potassium 4.0 Chloride 103 Carbon Dioxide 32 H Anion Gap 9.0 BUN 18 H Creatinine 0.80 Estimated Creat Clear 61 Estimated GFR 70 Est GFR ( Amer) 85 Glucose 116 H Calcium 8.7 Total Bilirubin AST ALT Alkaline Phosphatase Troponin I NT-Pro-B Natriuret Pep Total Protein Albumin Globulin Albumin/Globulin Ratio TSH Free T4 Digoxin SARS-CoV-2 IgG Ab (Rapid) Negative SARS-CoV-2 IgM Ab (Rapid) Negative 05/03/20 05/03/20 05/03/20 11:28 11:28 11:28 WBC RBC Hgb Hct MCV MCH MCHC RDW Plt Count MPV Neut % (Auto) Lymph % (Auto) [place] % (Auto) Eos % (Auto) Baso % (Auto) Neut # (Auto) Lymph # (Auto) [place] # (Auto) Eos # (Auto) Baso # (Auto) Sodium Potassium Chloride Carbon Dioxide Anion Gap BUN Creatinine Estimated Creat Clear Estimated GFR Est GFR ( Amer) Glucose Calcium Total Bilirubin AST ALT Alkaline Phosphatase Troponin I NT-Pro-B Natriuret Pep 2480 H Total Protein Albumin Globulin Albumin/Globulin Ratio TSH Free T4 1.35 Digoxin 0.70 SARS-C
[2020-05-04 08:00] VITALS: BP 127/70; PULSE 73; PULSE 87; RESP 18; TEMP 36.9; O2SAT 96
[2020-05-04 08:43] VITALS: PULSE 87
--- NOTE | 2020-05-04 08:45 | HMH.PNCARD ---
Subjective Date: 05/04/20 Time: 08:45 Principal diagnosis: angina, cad Interval history: This is a 73-year-old white female who was admitted to the hospital with angina. She underwent left cardiac catheterization was found to have patent coronary artery disease. This morning she denies any chest pain or pressure. She states her shortness of breath is significantly improved and she is feeling much better. She denies any lower extremity edema. She denies any fever, chills, nausea, vomiting, diarrhea, PND or orthopnea. Exam Vital signs and Labs for Last 24 Hours: Temp Pulse Resp BP Pulse Ox 98.4 F 87 18 127/70 96 05/04/20 08:00 05/04/20 08:00 05/04/20 08:00 05/04/20 08:00 05/04/20 08:00 Laboratory Results - last 24 hr 05/03/20 11:28: WBC 7.1, RBC 5.00, Hgb 12.9 D, Hct 40.9, MCV 81.9, MCH 26.1 L, MCHC 31.8, RDW 15.3, Plt Count 316, MPV 7.8, Neut % (Auto) 64.6, Lymph % (Auto) 27.7, [place] % (Auto) 3.9, Eos % (Auto) 3.0, Baso % (Auto) 0.8, Neut # (Auto) 4.6, Lymph # (Auto) 2.0, [place] # (Auto) 0.3, Eos # (Auto) 0.2, Baso # (Auto) 0.1 05/03/20 11:28: Sodium 140, Potassium 4.1, Chloride 104, Carbon Dioxide 32 H, Anion Gap 8.1, BUN 17, Creatinine 0.90, Estimated Creat Clear 64, Estimated GFR 61, Est GFR ( Amer) 74, Glucose 122 H D, Calcium 9.0, Total Bilirubin 0.5, AST 27, ALT 19, Alkaline Phosphatase 103, Troponin I < 0.01, Total Protein 6.8, Albumin 3.9, Globulin 2.9, Albumin/Globulin Ratio 1.3, TSH 0.39 L 05/03/20 11:28: Free T4 1.35 05/03/20 11:28: Digoxin 0.70 05/03/20 11:28: NT-Pro-B Natriuret Pep 2480 H 05/03/20 11:28: SARS-CoV-2 IgG Ab (Rapid) Negative, SARS-CoV-2 IgM Ab (Rapid) Negative 05/04/20 06:15: WBC 8.1, RBC 4.81, Hgb 12.6, Hct 39.6, MCV 82.3, MCH 26.1 L, MCHC 31.7 L, RDW 15.5, Plt Count 291, MPV 7.9, Neut % (Auto) 60.3, Lymph % (Auto) 31.7, [place] % (Auto) 4.5, Eos % (Auto) 2.9, Baso % (Auto) 0.6, Neut # (Auto) 4.9, Lymph # (Auto) 2.6, [place] # (Auto) 0.4, Eos # (Auto) 0.2, Baso # (Auto) 0.1 05/04/20 06:15: Sodium 140, Potassium 4.0, Chloride 103, Carbon Dioxide 32 H, Anion Gap 9.0, BUN 18 H, Creatinine 0.80, Estimated Creat Clear 61, Estimated GFR 70, Est GFR ( Amer) 85, Glucose 116 H, Calcium 8.7 I & O for Last 24 hours: Intake & Output 05/01/20 05/02/20 05/03/20 05/04/20 23:59 23:59 23:59 23:59 Intake Total 480 / 480 Output Total 200 / 200 Balance 280 / 280 Weight 173 lb 3 oz 170 lb Narrative: Telemetry strip shows atrial fibrillation with rate control - Constitutional no acute distress, obese - *Routine HEENT Exam Head: Present: normocephalic, atraumatic Eye: Present: EOMI, PERRL ENT: Present: mucous membranes moist - *Routine Neck Exam Present: supple, full ROM, normal carotid upstroke. Absent: JVD, carotid bruit, lymphadenopathy - *Routine Respiratory Exam Present: CTA bilaterally - *Routine Cardiovascular Exam Present: RRR, Normal S1, Normal S2. Absent: murmur - *Routine Abdominal Exam Present: soft, normoactive bowel sounds. Absent: tenderness, distended - *Routine Extremities Exam Present: full ROM, pulses intact, normal capillary refill. Absent: cyanosis, clubbing, edema - *Routine Skin Exam Present: intact, warm. Absent: erythema, rash - *Routine Neurological Exam Present: alert, oriented X3, CN II-XII intact. Absent: sensory deficit, motor deficit Progress Note: A&P (1) CAD (coronary artery disease) Status: Chronic (2) Atrial fibrillation Status: Chronic (3) History of coronary artery stent placement Status: Chronic (4) Diabetes mellitus Status: Chronic (5) Hyperlipidemia Status: Chronic (6) Hypertensive disorder Status: Chronic (7) Elevated brain natriuretic peptide (BNP) level Status: Resolved (8) Obesity (BMI 30.0-34.9) Status: Chronic (9) GERD with esophagitis Status: Chronic Assessment and Plan for All Diagnoses:: Plan: 1. The patient left cardiac catheterization was found to have muniz
== END 2020-05-04 09:30 | disposition home or self-care (01) ==
LOC: ER 12:03 → CATHLAB 12:03 → 2ND 12:32
PROVIDERS: Internal Medicine; Admitting Provider Internal Medicine Adolescent Medicine; Emergency Provider Emergency Medicine; PCP Internal Medicine Adolescent Medicine; Visit Provider Internal Medicine Adolescent Medicine
DX: I25.110 Atherosclerotic heart disease of native coronary artery with unstable angina pectoris (principal); E11.9 Type 2 diabetes mellitus without complications; I48.0 Paroxysmal atrial fibrillation; E78.5 Hyperlipidemia, unspecified; E03.9 Hypothyroidism, unspecified; Z95.5 Presence of coronary angioplasty implant and graft; Z79.01 Long term (current) use of anticoagulants; Z79.899 Other long term (current) drug therapy; I10 Essential (primary) hypertension; Z79.84 Long term (current) use of oral hypoglycemic drugs
CPT/HCPCS: 36415; 71046; 80048; 80053; 80162; 83880; 84439; 84443; 84484; 85025; 86328; 93005; 93458; 99152; 99284; C1725; C1769; G0378; J1644; Q9967

== ENCOUNTER → 2020-10-05 10:24 | Outpatient (CLI) | payer MEDICARE, BC, SELFPAY ==
[2020-10-05 13:51] LABS: Basophils # 0.1 K/mm3 (0-0.2); Basophils % 1.2 % (0.1-2.0); Eosinophils # 0.2 K/mm3 (0.0-0.4); Eosinophils % 3.1 % (0.1-12.0); Hematocrit 33.9 % (37.0-47.0); Hemoglobin 10.7 g/dL (12.2-16.2); Lymphocytes # 1.6 K/mm3 (0.7-4.5); Lymphocytes % 26.9 % (10-50); Mean Corpuscular HGB Conc 31.5 g/dL (31.8-35.4); Mean Corpuscular Hemoglobin 24.9 pg (27.0-31.2); Mean Platelet Volume 8.2 fl (7.4-10.4); Monocytes # 0.3 K/mm3 (0.1-1.0); Neutrophils # 3.8 K/mm3 (1.8-7.8); Neutrophils % 63.8 % (37.0-80.0); Platelet Count 235 K/mm3 (142-424); Red Blood Count 4.29 M/mm3 (4.20-5.40); Red Cell Distribution Width 16.4 % (11.5-17.5); White Blood Count 5.9 K/mm3 (4.8-10.8)
[2020-10-05 13:55] LABS: Chloride 101 mmol/L (98-107); Sodium 138 mmol/L (136-145)
[2020-10-05 13:56] LABS: Potassium 4.3 mmoL/L (3.5-5.1)
[2020-10-05 13:58] LABS: Alanine Aminotransferase 17 U/L (12-78); Albumin Level 3.8 g/dl (3.5-5.0); Albumin/Globulin Ratio 1.7 (1.1-1.8); Alkaline Phosphatase 133 U/L (38-126); Anion Gap 12.3 mEq/L (5-15); Aspartate Amino Transferase 26 U/L (14-36); Bilirubin,Total 0.4 mg/dl (0.2-1.3); Carbon Dioxide 29 mmol/L (22.0-30.0); Cholesterol 119 mg/dl (140-200); Globulin 2.3 g/dL (1.3-3.2); Total Protein,Serum 6.1 g/dl (6.3-8.2); Triglycerides 186 mg/dl (30-150); VLDL Cholesterol 37 mg/dL (0-40)
[2020-10-05 13:59] LABS: Calcium 9.2 mg/dl (8.4-10.2); Chol/HDL Ratio 2.7 (1-3.5); Glucose 109 mg/dl (74-100); HDL Cholesterol 44 mg/dl (40-60)
[2020-10-05 14:03] LABS: Blood Urea Nitrogen 15 mg/dl (7-17); Estimated Glomerular Filt Rate 82 ml/min (>60); GFR (African American) 99 ML/MIN (>60)
[2020-10-05 14:10] LABS: Direct LDL Cholesterol 48.37 mg/dL (100-129)
[2020-10-05 15:18] LABS: Hemoglobin A1C 5.8 % (4.0-6.0)
== END ==
PROVIDERS: Visit Provider Internal Medicine Adolescent Medicine
DX: E11.9 Type 2 diabetes mellitus without complications (principal); I10 Essential (primary) hypertension
CPT/HCPCS: 36415; 80053; 80061; 83036; 85025

== ENCOUNTER → 2020-11-18 15:27 | Outpatient (CLI) | payer MEDICARE, BC, SELFPAY ==
--- NOTE | 2020-11-18 15:31 | MR_ITS ---
PROCEDURE: MR HEAD/BRAIN WO CON CLINICAL INDICATION: DYSPHASIA Dizziness, off balance COMPARISON: No exams were available for comparison TECHNIQUE: Routine multiplanar multi echo sequences are performed without gadolinium enhancement. FINDINGS: No midline shift mass effect intracranial hemorrhage or hydrocephalus. No evidence of acute infarction. The CP angles, cerebellum, and brainstem have an unremarkable appearance. There are some senescent changes with mild brain volume loss and scattered T2 white matter hyperintensities. The the pituitary, optic chiasm, corpus callosum, and craniocervical junction have an unremarkable appearance. No mastoid effusion. Small retention cyst is present in the sphenoid sinus at approximately 8 mm. The hippocampal gyri have an unremarkable appearance. IMPRESSION: Senescent changes. No acute intracranial finding. Dictated by: Isaias Sands MD 11/21/2020 08:03 Isaias Sands MD in [facility] 11/21/2020 08:03
== END ==
PROVIDERS: PCP Internal Medicine Adolescent Medicine; Visit Provider Internal Medicine Adolescent Medicine
DX: R47.02 Dysphasia (principal)
CPT/HCPCS: 70551

== ENCOUNTER 2020-11-24 15:00 | Outpatient (RCR) | payer MEDICARE, BC, SELFPAY ==
--- NOTE | 2020-10-26 13:33 | HMH.PTOPWND ---
Rehab Outpt Wound Evaluation Rehab OP Wound Evaluation Start: 10/26/20 13:10 Freq: Status: Active Protocol: Document 10/26/20 13:25 YARED (Rec: 10/26/20 13:33 PHORNE [id number]) Electronically Signed By Chao Williamson, PT 10/26/20 13:25 Subjective/History History History Pt is 75 yowf who presents with c/o B LE edema x 3-4 wks which does not decrease at night with propping her extremities up. She reports no pain at rest, but some tenderness to palpation and all symptoms are worse on the L LE. She reports edema has decreased in the past 2-3 days and she relates recent changes in her diet which may have resulted in decreased edema. She reports PMH of CCY, RADHA, R breast lumpectomy, B breast reduction, a-fib, CAD, PAD, DM-II, HL, HTN, OA, hypothyroid, and fibromyalgia. Subjective Subjective No c/o pain at this time. 2/4 tenderness to palpation in B gaitor area. Lymphedema Eval Classification of Lymphedema Secondary Lymphedema Yes Stemmer's sign Stemmer's Sign no Stage of Lymphedema Lymphedema stages Stage 0 (subjective c/o heaviness and aching) Skin Changes Dry Skin Yes Other Changes Yes Pain Scale Pain Scale (0-10) 0 Affected Extremities Areas Affected by Lymphedema/Edema Right Lower Extremity,Left Lower Extremity Manual Lymphatic Drainage Treatment Area MLD Treatment Area Right Lower Extremity,Left Lower Extremity Wound Problems/Impairments Impairments Problems/Impairmments Palpation Tenderness,Impaired Endurance,Increased Edema, Lymphedema Present,Impaired Self Care/Self Management Prognosis Rehab Potential Good Clinical Impression Consistent with Diagnosis Yes Short Term Goals Number of Weeks 4 Decreased Palpation Tenderness Yes: 1/4 Decrease Edema Yes Patient to Understand Lymphedema Yes 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
== END 2020-11-24 15:05 | disposition home or self-care (01) ==
LOC: PT 15:00
PROVIDERS: PCP Internal Medicine Adolescent Medicine; Visit Provider Internal Medicine Adolescent Medicine
DX: I89.0 Lymphedema, not elsewhere classified (principal)
CPT/HCPCS: 97140; 97162; 97760

== ENCOUNTER → 2020-12-01 10:07 | Outpatient (CLI) | payer MEDICARE, BC, SELFPAY ==
[2020-12-01 14:11] LABS: Basophils % 0.8 % (0.1-2.0); Eosinophils # 0.3 K/mm3 (0.0-0.4); Eosinophils % 4.7 % (0.1-12.0); Hematocrit 32.7 % (37.0-47.0); Lymphocytes # 1.3 K/mm3 (0.7-4.5); Lymphocytes % 22.5 % (10-50); Mean Corpuscular HGB Conc 30.7 g/dL (31.8-35.4); Mean Corpuscular Volume 81.5 fl (81-99); Mean Platelet Volume 8.1 fl (7.4-10.4); Monocytes # 0.3 K/mm3 (0.1-1.0); Monocytes % 4.5 % (1.7-9.3); Neutrophils # 3.8 K/mm3 (1.8-7.8); Neutrophils % 67.5 % (37.0-80.0); Platelet Count 257 K/mm3 (142-424); Red Blood Count 4.01 M/mm3 (4.20-5.40); Red Cell Distribution Width 16.2 % (11.5-17.5); White Blood Count 5.6 K/mm3 (4.8-10.8)
[2020-12-01 14:12] LABS: Chloride 103 mmol/L (98-107); Potassium 4.2 mmoL/L (3.5-5.1); Sodium 139 mmol/L (136-145)
[2020-12-01 14:15] LABS: Alanine Aminotransferase 14 U/L (12-78); Alkaline Phosphatase 129 U/L (38-126); Anion Gap 11.2 mEq/L (5-15); Aspartate Amino Transferase 23 U/L (14-36); Bilirubin,Total 0.5 mg/dl (0.2-1.3); Blood Urea Nitrogen 12 mg/dl (7-17); Carbon Dioxide 29 mmol/L (22.0-30.0); Estimated Glomerular Filt Rate 82 ml/min (>60); GFR (African American) 99 ML/MIN (>60)
[2020-12-01 14:16] LABS: Albumin Level 3.6 g/dl (3.5-5.0); Albumin/Globulin Ratio 1.5 (1.1-1.8); Calcium 8.6 mg/dl (8.4-10.2); Globulin 2.4 g/dL (1.3-3.2); Glucose 100 mg/dl (74-100)
[2020-12-01 14:33] LABS: Triiodothryronine (T3) Uptake 34 % (23.5-40.5)
[2020-12-01 14:34] LABS: Free Thyroxine Index 3.6 ug/dL (5.93-13.13); T4 (Thyroxine) 10.6 ug/dl (5.53-11.0)
[2020-12-01 15:26] LABS: Vitamin B12 890 pg/mL (239-931)
[2020-12-07 20:30] LABS: Methylmalonic Acid 159 nmol/L (0-378)
== END ==
PROVIDERS: Visit Provider Internal Medicine Adolescent Medicine
DX: R47.02 Dysphasia (principal)
CPT/HCPCS: 36415; 80053; 82131; 82607; 84436; 84443; 84479; 85025

== ENCOUNTER → 2021-01-06 17:15 | Outpatient (CLI) | payer MEDICARE, BC, SELFPAY ==
[2021-01-06 18:23] LABS: Basophils # 0.1 K/mm3 (0-0.2); Basophils % 1.2 % (0.1-2.0); Eosinophils # 0.2 K/mm3 (0.0-0.4); Hemoglobin 10.5 g/dL (12.2-16.2); Lymphocytes # 1.7 K/mm3 (0.7-4.5); Lymphocytes % 24.4 % (10-50); Mean Corpuscular HGB Conc 31.9 g/dL (31.8-35.4); Mean Corpuscular Hemoglobin 25.3 pg (27.0-31.2); Mean Corpuscular Volume 79.3 fl (81-99); Mean Platelet Volume 8.4 fl (7.4-10.4); Monocytes # 0.4 K/mm3 (0.1-1.0); Monocytes % 5.2 % (1.7-9.3); Neutrophils # 4.7 K/mm3 (1.8-7.8); Neutrophils % 66.1 % (37.0-80.0); Platelet Count 298 K/mm3 (142-424); Red Blood Count 4.16 M/mm3 (4.20-5.40); Red Cell Distribution Width 16.5 % (11.5-17.5); White Blood Count 7.1 K/mm3 (4.8-10.8)
== END ==
PROVIDERS: Visit Provider Nurse Practitioner Family
DX: T14.8XXA Other injury of unspecified body region, initial encounter (principal)
CPT/HCPCS: 85025

== ENCOUNTER → 2021-02-28 17:57 | Outpatient (CLI) | payer MEDICARE, BC, SELFPAY | PROVIDERS: Visit Provider Nurse Practitioner Family | DX: R10.30 Lower abdominal pain, unspecified (principal) | CPT/HCPCS: 87086 ==

== ENCOUNTER → 2021-03-10 13:56 | Outpatient (CLI) | payer MEDICARE, BC, SELFPAY ==
[2021-03-10 15:25] LABS: Blood Urea Nitrogen 14 mg/dl (7-17); Estimated Glomerular Filt Rate 82 ml/min (>60); GFR (African American) 99 ML/MIN (>60)
== END ==
PROVIDERS: Visit Provider Nurse Practitioner Family
DX: R10.30 Lower abdominal pain, unspecified (principal)
CPT/HCPCS: 36415; 82565; 84520

== ENCOUNTER → 2021-03-13 10:21 | Outpatient (CLI) | payer MEDICARE, BC, SELFPAY ==
--- NOTE | 2021-03-13 10:25 | CT_ITS ---
PROCEDURE: CT ABDOMEN PELVIS W CON CLINICAL INDICATION: LOWER ABD PAIN COMPARISON: CT CT ABDOMEN PELVIS W CON from 03/30/2019 TECHNIQUE: IV Contrast: 75ML Isovue 370 Oral Contrast None Axial images obtained with sagittal and coronal reformats. All CT scans at the facility use one or more dose reduction, viz: automated exposure control, ma/kV adjustment per patient size (including targeted exams where dose is matched to indication, i.e. head), or iterative reconstruction technique. FINDINGS: LOWER THORAX: No acute finding ABDOMEN & PELVIS: Prior cholecystectomy with mild ectasia of the biliary tree. The liver, spleen, adrenal glands, and pancreas have an unremarkable appearance. No renal or ureteral calculi. No hydronephrosis. Moderate amount of retained colonic feces. Unremarkable appendix. No evidence of intestinal obstruction or free air. There is a thickened appearing loop of small bowel in the right paracentral region of the pelvis. There is no stranding of the fat at this region. Prior hysterectomy. No pelvic mass or abnormal fluid collection. There is colonic diverticulosis. No evidence of diverticulitis. Degenerative disc disease L4-5. No acute bony anomaly. IMPRESSION: 1. Constipation 2. Thickened appearing loop of small bowel in the pelvic region on the right without stranding of the fat. This could be due to nondistention or focal area of enteritis. The thickened loop measures approximately 5-6 cm in length. 3. Colonic diverticulosis. No evidence of diverticulitis Dictated by: Isaias Sands MD 03/14/2021 10:43 Isaias Sands MD in [facility] 03/14/2021 10:43
== END ==
PROVIDERS: PCP Internal Medicine Adolescent Medicine; Visit Provider Nurse Practitioner Family
DX: R10.30 Lower abdominal pain, unspecified (principal)
CPT/HCPCS: 74177; Q9967

== ENCOUNTER → 2021-04-11 17:59 | Outpatient (CLI) | payer MEDICARE, BC, SELFPAY ==
[2021-04-11 19:04] LABS: Basophils # 0.1 K/mm3 (0-0.2); Basophils % 0.8 % (0.1-2.0); Eosinophils # 0.1 K/mm3 (0.0-0.4); Eosinophils % 1.9 % (0.1-12.0); Hematocrit 35.9 % (37.0-47.0); Lymphocytes # 1.5 K/mm3 (0.7-4.5); Lymphocytes % 21.6 % (10-50); Mean Corpuscular HGB Conc 30.8 g/dL (31.8-35.4); Mean Corpuscular Hemoglobin 25.1 pg (27.0-31.2); Mean Corpuscular Volume 81.7 fl (81-99); Mean Platelet Volume 9.5 fl (7.4-10.4); Monocytes # 0.3 K/mm3 (0.1-1.0); Monocytes % 4.6 % (1.7-9.3); Neutrophils # 4.9 K/mm3 (1.8-7.8); Neutrophils % 71.1 % (37.0-80.0); Platelet Count 236 K/mm3 (142-424); Red Blood Count 4.39 M/mm3 (4.20-5.40); Red Cell Distribution Width 16.5 % (11.5-17.5); White Blood Count 6.9 K/mm3 (4.8-10.8)
[2021-04-11 19:05] LABS: Alanine Aminotransferase 18 U/L (12-78); Albumin Level 3.8 g/dl (3.5-5.0); Albumin/Globulin Ratio 1.5 (1.1-1.8); Alkaline Phosphatase 132 U/L (38-126); Anion Gap 11.7 mEq/L (5-15); Aspartate Amino Transferase 71 U/L (14-36); Bilirubin,Total 0.5 mg/dl (0.2-1.3); Blood Urea Nitrogen 16 mg/dl (7-17); Calcium 9.2 mg/dl (8.4-10.2); Carbon Dioxide 29 mmol/L (22.0-30.0); Chloride 103 mmol/L (98-107); Estimated Glomerular Filt Rate 98 ml/min (>60); GFR (African American) 118 ML/MIN (>60); Globulin 2.6 g/dL (1.3-3.2); Glucose 104 mg/dl (74-100); Potassium 4.7 mmoL/L (3.5-5.1); Sodium 139 mmol/L (136-145); Total Protein,Serum 6.4 g/dl (6.3-8.2)
[2021-04-12 08:09] LABS: Hemoglobin A1C 5.7 % (4.0-6.0)
== END ==
PROVIDERS: Visit Provider Internal Medicine Adolescent Medicine
DX: I25.10 Atherosclerotic heart disease of native coronary artery without angina pectoris (principal); E11.40 Type 2 diabetes mellitus with diabetic neuropathy, unspecified; Z79.84 Long term (current) use of oral hypoglycemic drugs
CPT/HCPCS: 80053; 83036; 85025

== ENCOUNTER → 2021-05-30 13:19 | Outpatient (CLI) | payer MEDICARE, BC, SELFPAY | PROVIDERS: Visit Provider Surgery | DX: Z01.812 Encounter for preprocedural laboratory examination (principal); Z11.52 Encounter for screening for COVID-19; Z12.11 Encounter for screening for malignant neoplasm of colon | CPT/HCPCS: C9803; U0003; U0005 ==

== ENCOUNTER 2021-06-01 07:16 | Day surgery (SDC) | payer MEDICARE, BC, SELFPAY ==
[2021-05-29 12:15] VITALS: BMI 31.6
[2021-06-01 07:31] VITALS: BP 176/84; PULSE 74; RESP 16; TEMP 36.4; O2SAT 96
[2021-06-01 08:35] VITALS: O2SAT 96
--- NOTE | 2021-06-01 08:50 | P.PN_ITS ---
[facility] Anesthesia Checklist - Structural Data Admitted From: Home Planned Operative Procedure/s: colonoscopy Consent for Planned Operative Procedure(s) Verified: Yes - Additional verifications Anesthesia Reactions: Yes (low blood pressure) Hx Blood Transfusions: No Blood Transfusion Reaction: No - Airway Assessment C-Spine Mobility Assessed: Yes TMJ Mobility Assessed: Yes Dentition: Good Dentition - Neurological Assessment Level of Consciousness: Awake, Alert, Appropriate - Anesthesia Plan Anesthesia Risk discussed: Yes Anesthesia Plan: Verified ASA Class: II Anesthesia Type: MAC [facility] History I have reviewed the patient's past medical history: Yes Medical History: Reports:: Arrhythmia, Asthma, Atrial Fibrillation, Cancer (breast cancer), Coronary Artery Disease, Depression, Diabetes Mellitus Type 2, Gastroesophageal Reflux Disease(GERD), Hyperlipidemia, Hypertension, MRSA, Palpitations, Peripheral Artery Disease Denies:: Diabetes Mellitus Type 1, Internal Pacemaker, Seizures *Have you ever received a pneumonia vaccine?: Yes *Have you received a flu vaccine this season?: Yes Other Medical History: Reports: Arthritis, Cataracts, Fibromyalgia, Hypothyroidism. Denies: Blood Transfusion Reaction Anesthesia experience/problems:: none Laterality Cases: Right: Breast Biopsy, Bilateral: Cataract, Lumpectomy, Tonsillectomy Other Surgeries: Yes: Cancer Surgery, Cardiac Catheterization, Cholecystectomy, Colonoscopy, Coronary Stent, EGD, Hysterectomy-Total, Other. No: Pacemaker Amputation: No Fractures: No - *Social History Last grade of school completed: Some college Smoking Status: Former smoker Tobacco Type: cigarettes # Packs/Day (cigarettes): 1 #Yrs smoked (if former smoker): 30 Smoking End Date: 1 Alcohol Intake: never Alcohol Intake Frequency:: holidays/special occasions only Substance Use Type: denies use *Occupational Status:: retired Housing: house Household Members: spouse *Travel in the last 8 weeks: None - Psychiatric History Pschychiatric History:: Reports:: Depression Family Hx:: Cancer, Diabetes
[2021-06-01 09:00] VITALS: BP 103/54; PULSE 63; RESP 16; TEMP 36.5; O2SAT 92
--- NOTE | 2021-06-01 09:01 | HMH.SCOPE ---
- Procedure: Date: 06/01/21 Patient Date of :: 1945 Procedure Performed:: Limited flexible sigmoidoscopy. Colonoscopy aborted secondary to exceedingly poor bowel preparation. Indications:: History of colon polyps Performing Provider:: Carson Richey MD Referring Provider:: . Sedation:: Monitored anesthesia care Procedure:: After informed consent was obtained the patient was taken to the endoscopy suite. Sedation ensued after the patient was transferred to the left lateral decubitus position. Pulse, blood pressure, and oxygen saturation were monitored throughout the procedure. Digital rectal exam revealed no significant abnormality. The colonoscope was placed in position. Exceedingly poor bowel preparation noted. Severe sigmoid tortuosity also noted. Advancement beyond the sigmoid was deemed unwarranted secondary to worsening bowel preparation. The colonoscope was carefully removed and the patient was transferred to recovery in stable condition. Please see findings and specimens below for detail. Findings:: Exceedingly poor bowel preparation Colonoscopy aborted secondary to poor bowel preparation Severe sigmoid tortuosity Specimens:: None Recommendations:: Repeat colonoscopy in near future with extended bowel preparation Complications:: Colonoscopy aborted secondary to poor bowel preparation Estimated blood obtained (mL): 0
[2021-06-01 09:10] VITALS: BP 137/66; PULSE 66; RESP 16; O2SAT 98
[2021-06-01 09:20] VITALS: BP 122/59; PULSE 73; RESP 16; O2SAT 98
[2021-06-01 09:30] VITALS: BP 118/68; PULSE 70; RESP 16; O2SAT 100
[2022-03-15 10:55] LABS: POC Glucose,Bedside 85 (70-110)
== END 2021-06-01 09:31 | disposition home or self-care (01) ==
LOC: OUTP 07:18
PROVIDERS: PCP Internal Medicine Adolescent Medicine; Visit Provider Surgery
PROC: 0DJD8ZZ Inspection of Lower Intestinal Tract, Via Natural or Artificial Opening Endoscopic (ICD-10-PCS; principal; 2021-06-01 08:30)
DX: Z12.11 Encounter for screening for malignant neoplasm of colon (principal); Z86.010 Personal history of colon polyps; K56.2 Volvulus; J45.909 Unspecified asthma, uncomplicated; I48.91 Unspecified atrial fibrillation; I25.10 Atherosclerotic heart disease of native coronary artery without angina pectoris; E11.9 Type 2 diabetes mellitus without complications; F32.A Depression, unspecified; E78.5 Hyperlipidemia, unspecified; I10 Essential (primary) hypertension; I73.9 Peripheral vascular disease, unspecified; Z86.14 Personal history of Methicillin resistant Staphylococcus aureus infection
CPT/HCPCS: G0104; 82962

== ENCOUNTER → 2021-06-27 12:43 | Outpatient (CLI) | payer MEDICARE, BC, SELFPAY ==
--- NOTE | 2021-06-27 12:45 | CA_ITS ---
APPROVED REPORT EXAM: Comprehensive 2D, Doppler, and color-flow Echocardiogram [facility] Dean: Suki Tomas RT(R) Ht: 5 ft 2 in Wt: 172lbs BSA: 1.79 BP: 162/70 mmHg Indications: MOD AI, ex smoker, HTN, DM, MCDOWELL, hyperlipidemia, dizziness, CAD, AFIB, GERD 2D Dimensions LVOT 1.91 cm (M/F) 1.5-2.5 LVEF (Garrido's) 62.50 % F: 54 - 74 LV Volume 105.20 mL F: 46 - 106 LV Volume Index 58.77 mL/m2 F: 29 - 61 LA Volume 47.70 mL LA Volume Index 26.64 mL/m2 (M/F) 16-34 M-Mode Dimensions RVDd 2.99 cm (0.9-2.6) LA Diam 4.44 cm (1.9-4.0) LVDd 5.71 cm (3.5-5.7) Ao Diam 2.66 cm (2.0-3.7) LVDs 3.74 cm (3.5-5.7) IVSd 0.64 cm (0.6-1.1) PWd 1.02 cm (0.6-1.1) EF (Teich) 62.90% FS 34.50% EDV (Teich) 160.70 mL ESV (Teich) 59.60 mL LV Diastology E Decel Time 177.00 (160-240 msec) E/A Ratio 1.9 MED E' 8.10 (< 7 cm/sec) E'/MED E' Ratio 10.77 (>14) LAT E' 7.90 (<10 cm/sec) E/LAT E' Ratio 11.04 (>14) Aortic Valve LVOT Max 91.00 (70-110 cm/s) LVOT VTI 26.79 cm AoV Peak Gigi. 112.00 (50-130 cm/s) AI PHT 768.00 ms AO Peak GR. 5.00 mmHg AO Mean GR. 2.40 (<5 mmHg) AO VTI 26.60 (18-25 cm) PATRICIA (VTI) 2.89 (2.5-4.5 cm2) Mitral Valve MV E Max Gigi. 87.00 (40-130 cm/s) MV A Velocity 46.00 (40-130 cm/s) E/A Ratio 1.89 MV Decel. Time 177.00 (160-240 ms) MV PHT 52.00 ms Tricuspid Valve TR P. Velocity 308.00 cm/s RAP Estimate 10.00 mmHg RVSP 48.00 mmHg Left Ventricle Left atrium is mildly enlarged, left ventricular is normal size, mild concentric left ventricular hypertrophy, visually estimated ejection fraction 55% with no regional wall motion abnormality. Diastolic parameters are inconclusive. Right Ventricle Right atrium and right ventricle are mildly enlarged with normal contractility. Aortic Valve Aortic valve is minimally thickened and fibrosed, there is no aortic stenosis, there is moderate aortic insufficiency. Mitral Valve Multiple leaflets are minimally thickened, there is mild mitral regurgitation. Tricuspid Valve Tricuspid valve grossly normal, there is mild tricuspid regurgitation, calculated right ventricular systolic pressure is 48 mmHg. Pulmonic Valve Pulmonic valve is poorly visualized. Great Vessels Aortic root is normal size. Inferior vena cava is normal size with normal inspiratory collapse. Pericardium No significant pericardial effusion noted. Conclusion 1. Biatrial enlargement, normal left ventricular size, mild concentric left ventricular hypertrophy, visually estimated ejection fraction of 5% with no regional wall motion abnormality, diastolic parameters are inconclusive. 2. Mildly enlarged right ventricle with normal contractility. 3. Moderate aortic, mild mitral and tricuspid regurgitation, calculated right ventricular systolic pressure is 48 mmHg. 4. No significant pericardial effusion noted. 5. Inferior vena cava is normal size with normal inspiratory collapse. Electronically signed by : Ishan Marie MD 06/27/2021 19:55:54
--- NOTE | 2021-06-27 12:45 | CA_ITS ---
FINAL REPORT TECHNIQUE: Color Doppler, duplex Doppler and quigley scale sonography of the bilateral neck arterial vasculature was performed. Velocities were measured in the carotid arteries. Stenosis evaluation based on the validated velocity criteria. CLINICAL HISTORY: .LT EYE VISION LOSS,UNSTEADY GAIT,DIZZINESS FINDINGS: The peak systolic velocity of the right common carotid artery is 81 cm/s. The peak systolic velocity of the right internal carotid artery is 72 cm/s and end diastolic velocity 16 cm/s. A [id number] amount of plaque is present. The right external carotid artery is patent. The right vertebral artery is patent with antegrade flow. The peak systolic velocity of the left common carotid artery is 86 cm/s. The peak systolic velocity of the left internal carotid artery is 90 cm/s and end diastolic velocity 18 cm/s. A [id number] amount of plaque is present. The left external carotid artery is patent.The left vertebral artery is patent with antegrade flow. IMPRESSION: Less than 50% bilateral carotid stenoses. Bilateral patent vertebral arteries with antegrade flow. If indicated, CTA or MRA could further evaluate. Reviewed, Interpreted and Dictated by Shawn Jay III, MD Transcribed by Dada Carter Authenticated by Shawn Jay III, MD on 06/27/2021 02:33:58 PM [facility]
== END ==
PROVIDERS: PCP Internal Medicine Adolescent Medicine; Visit Provider Nurse Practitioner Family
DX: E78.2 Mixed hyperlipidemia (principal); H54.62 Unqualified visual loss, left eye, normal vision right eye; I10 Essential (primary) hypertension; I25.10 Atherosclerotic heart disease of native coronary artery without angina pectoris; I48.0 Paroxysmal atrial fibrillation; R26.81 Unsteadiness on feet; R42 Dizziness and giddiness; Z95.5 Presence of coronary angioplasty implant and graft
CPT/HCPCS: 93306; 93880

== ENCOUNTER 2021-07-24 08:16 | Day surgery (SDC) | payer MEDICARE, BC, SELFPAY ==
[2021-07-24] VITALS (12 sets, daily range): BP systolic 132–168; BP diastolic 60–81; PULSE 56–74; RESP 18–19; TEMP 36.9; O2SAT 93–98; BMI 31.2
--- NOTE | 2021-07-24 07:08 | IR_ITS ---
APPROVED REPORT Patient Location: Outpatient Medical Bill Processor: DOMINGA Denise RT (R) PROCEDURES Right heart catheterization Left heart catheterization Left ventriculogram Selective coronary angiogram Pigtail catheter in the ascending aorta Ascending aortogram INDICATION Pulmonary hypertension, Congestive heart failure class III-IV, Aortic insufficiency, Aortic stenosis Informed consent was obtained prior to the procedure. COMPLICATIONS None Estimated Blood Loss: Less than 10 mls TECHNIQUE One percent lidocaine used to anesthetize the right anterior aspect of the wrist. The right radial artery was accessed via the Seldinger technique. A 6 Arabic sheath was placed in the right radial artery. 2.5 mg of verapamil, 800 mcg of nitroglycerin, 1mg Lidocaine and 5000 U Heparin were given through the arterial sheath. The Poppa catheter was also used to perform left heart catheterization, left ventriculogram and selective coronary angiogram. 1% lidocaine was used anesthetize the right anterior aspect the right neck. The right internal jugular vein was accessed via the Salinger technique and a 7 Arabic sheath was placed in the right internal jugular vein. A Magnolia-Lisa catheter was zeroed and then floated under fluoroscopic and hemodynamic guidance into the pulmonary artery where right heart catheterization was performed. At the end of the procedure a pigtail catheter was placed in the ascending aorta and left heart catheterization left ventriculogram and ascending aortography was performed. Contrast was injected at 15 cc/s for 45 seconds in the ascending aorta. At the end of the procedure the apparatus was removed the sheath was removed from the right wrist good hemostasis was achieved using TR banding patient was transferred to the postop holding stable addition for right IJ catheter removal ANGIOGRAPHIC RESULTS The left main artery Has a stent in the proximal segment which extends through the entire vessel into the proximal LAD. The stent is widely patent free of in-stent restenosis with excellent proximal transitioning The left anterior descending artery Has a stent originating off the left main artery and extends throughout the proximal segment. The stent is widely patent free of in-stent restenosis with excellent distal transitioning. The remaining vessel has mild 10% luminal irregularities The circumflex artery Is a nondominant vessel with no angiographic evidence of significant jailing. The vessel is widely patent The right coronary artery Is a dominant vessel and has mid vessel 20% and then a 30% stenosis The LAND ventriculogram reveals Normal 65% The left ventricular end-diastolic pressure 17 mmHg Ascending aorta is of normal size with a normal root with mild +1 to +2 aortic insufficiency Right atrial pressure 3 mmHg Right ventricular pressure 40/5 mmHg Pulmonary artery pressure 37/17 mmHg Pulmonary artery occlusion pressure 14 mmHg Right atrial saturation 84% Pulmonary saturation 85% Aortic saturation 100% Hemoglobin 12.3 Aortic root is of normal size and caliber without dilatation with +1 to +2 aortic insufficiency Transaortic valve gradient of 5 to 10 mmHg is present IMPRESSION Mild pulmonary hypertension as described above Mild diastolic dysfunction as described above Widely patent stents as described above Normal ejection fraction Trivial aortic stenosis Mild aortic insufficiency with normal aortic caliber size PLAN 1. Medical management Electronically signed by : Dagoberto Howe MD 07/24/2021 14:10:46
[2021-07-24 08:50] LABS: Coronavirus 19, PCR Not Detected (NotDetected); Influenza A, PCR Not Detected (NotDetected); Influenza B, PCR Not Detected (NotDetected)
[2021-07-24 08:56] LABS: Basophils # 0.1 K/mm3 (0-0.2); Basophils % 1.5 % (0.1-2.0); Chloride 99 mmol/L (98-107); Eosinophils # 0.2 K/mm3 (0.0-0.4); Eosinophils % 2.4 % (0.1-12.0); Hematocrit 38.7 % (37.0-47.0); Hemoglobin 12.3 g/dL (12.2-16.2); Lymphocytes # 2.1 K/mm3 (0.7-4.5); Lymphocytes % 26.2 % (10-50); Mean Corpuscular HGB Conc 31.8 g/dL (31.8-35.4); Mean Corpuscular Hemoglobin 26.1 pg (27.0-31.2); Mean Platelet Volume 8.5 fl (7.4-10.4); Monocytes # 0.4 K/mm3 (0.1-1.0); Monocytes % 4.7 % (1.7-9.3); Neutrophils # 5.2 K/mm3 (1.8-7.8); Neutrophils % 65.2 % (37.0-80.0); Platelet Count 327 K/mm3 (142-424); Potassium 3.8 mmoL/L (3.5-5.1); Red Blood Count 4.72 M/mm3 (4.20-5.40); Red Cell Distribution Width 16.9 % (11.5-17.5)
[2021-07-24 08:59] LABS: Blood Urea Nitrogen 15 mg/dl (7-17); Carbon Dioxide 30 mmol/L (22.0-30.0); Creatinine Clearance Estimated 60 mL/min (50-200); Estimated Glomerular Filt Rate 82 ml/min (>60); GFR (African American) 99 ML/MIN (>60)
[2021-07-24 09:00] LABS: Glucose 115 mg/dl (74-100)
[2021-07-24 09:08] LABS: Sodium 139 mmol/L (136-145)
[2021-07-24 09:09] LABS: Anion Gap 13.8 mEq/L (5-15)
[2021-07-24 11:49] LABS: CATHL Arterial O2 SAT 85.3 % (90-100); CATHL Venous O2 SAT 84.1 % (75-80)
== END 2021-07-24 14:34 | disposition home or self-care (01) ==
LOC: CATHLAB 08:18
PROVIDERS: PCP Internal Medicine Adolescent Medicine; Visit Provider Internal Medicine
DX: E11.69 Type 2 diabetes mellitus with other specified complication (principal); E78.2 Mixed hyperlipidemia; G47.33 Obstructive sleep apnea (adult) (pediatric); I11.0 Hypertensive heart disease with heart failure; I27.20 Pulmonary hypertension, unspecified; I35.1 Nonrheumatic aortic (valve) insufficiency; I48.0 Paroxysmal atrial fibrillation; R06.09 Other forms of dyspnea; R93.1 Abnormal findings on diagnostic imaging of heart and coronary circulation; I25.118 Atherosclerotic heart disease of native coronary artery with other forms of angina pectoris; I50.9 Heart failure, unspecified; Z20.822 Contact with and (suspected) exposure to COVID-19; E03.9 Hypothyroidism, unspecified; Z79.01 Long term (current) use of anticoagulants; Z87.891 Personal history of nicotine dependence; Z95.5 Presence of coronary angioplasty implant and graft; Z79.84 Long term (current) use of oral hypoglycemic drugs
CPT/HCPCS: 80048; 82810; 85025; 93460; 93567; 99152; 99153; C1725; C1769; C1894; C9803; J1644; Q9967; U0003; U0005

== ENCOUNTER → 2021-09-06 10:17 | Outpatient (CLI) | payer MEDICARE, BC, SELFPAY ==
[2021-09-06 10:50] LABS: Basophils # 0.1 K/mm3 (0-0.2); Eosinophils # 0.2 K/mm3 (0.0-0.4); Eosinophils % 2.9 % (0.1-12.0); Hematocrit 38.3 % (37.0-47.0); Hemoglobin 12.3 g/dL (12.2-16.2); Lymphocytes # 1.9 K/mm3 (0.7-4.5); Lymphocytes % 28.8 % (10-50); Mean Corpuscular HGB Conc 32.2 g/dL (31.8-35.4); Mean Corpuscular Hemoglobin 27.2 pg (27.0-31.2); Mean Corpuscular Volume 84.4 fl (81-99); Mean Platelet Volume 9.1 fl (7.4-10.4); Monocytes # 0.3 K/mm3 (0.1-1.0); Monocytes % 3.9 % (1.7-9.3); Neutrophils % 62.4 % (37.0-80.0); Platelet Count 284 K/mm3 (142-424); Red Blood Count 4.54 M/mm3 (4.20-5.40); Red Cell Distribution Width 16.9 % (11.5-17.5); White Blood Count 6.4 K/mm3 (4.8-10.8)
[2021-09-06 11:03] LABS: Ammonia < 9 umol/L (9-30)
[2021-09-06 12:06] LABS: Alanine Aminotransferase 20 U/L (12-78); Albumin/Globulin Ratio 1.9 (1.1-1.8); Alkaline Phosphatase 93 U/L (38-126); Anion Gap 8.5 mEq/L (5-15); Aspartate Amino Transferase 26 U/L (14-36); Bilirubin,Total 0.4 mg/dl (0.2-1.3); Blood Urea Nitrogen 18 mg/dl (7-17); Carbon Dioxide 32 mmol/L (22.0-30.0); Chloride 103 mmol/L (98-107); Estimated Glomerular Filt Rate 82 ml/min (>60); GFR (African American) 99 ML/MIN (>60); Globulin 2.1 g/dL (1.3-3.2); Glucose 110 mg/dl (74-100); Potassium 4.5 mmoL/L (3.5-5.1); Sodium 139 mmol/L (136-145); Total Protein,Serum 6.1 g/dl (6.3-8.2)
[2021-09-06 12:23] LABS: Free Thyroxine Index 3.3 ug/dL (5.93-13.13); T4 (Thyroxine) 9.8 ug/dl (5.53-11.0); Triiodothryronine (T3) Uptake 34 % (23.5-40.5)
[2021-09-06 12:37] LABS: Thyroid Stimulating Hormone 1.02 uIU/mL (0.465-4.68)
[2021-09-06 12:56] LABS: Vitamin B12 918 pg/mL (239-931)
[2021-09-11 20:11] LABS: Methylmalonic Acid 190 nmol/L (0-378)
== END ==
PROVIDERS: Visit Provider Internal Medicine Adolescent Medicine
DX: R47.01 Aphasia (principal); G31.84 Mild cognitive impairment of uncertain or unknown etiology; R53.81 Other malaise; R53.83 Other fatigue
CPT/HCPCS: 36415; 80053; 82131; 82140; 82533; 82607; 84436; 84443; 84479; 85025

== ENCOUNTER → 2021-10-06 10:22 | Outpatient (CLI) | payer MEDICARE, BC, SELFPAY | PROVIDERS: PCP Internal Medicine Adolescent Medicine; Visit Provider Internal Medicine Pulmonary Disease | DX: R06.00 Dyspnea, unspecified (principal) | CPT/HCPCS: 94762 ==

== ENCOUNTER → 2021-11-09 09:53 | Outpatient (CLI) | payer MEDICARE, BC, SELFPAY ==
--- NOTE | 2021-11-09 10:02 | XR_ITS ---
FINAL REPORT CLINICAL HISTORY: SOB, hx of lumpectomy and breast cancer COMPARISON: May 03, 2020 FINDINGS: PA and lateral views of the chest were obtained. The cardiac and mediastinal silhouettes are within normal limits. The lungs are clear. There is no pleural effusion or pneumothorax. No acute osseous abnormality is identified. IMPRESSION: No radiographic evidence of acute cardiac or pulmonary disease. Reviewed, Interpreted and Dictated by Gloria Perez MD Transcribed by Soco Anguiano Authenticated by Gloria Perez MD on 11/09/2021 01:12:44 PM [facility]
--- NOTE | 2021-11-09 10:05 | CT_ITS ---
FINAL REPORT TECHNIQUE: Thin section axial images were obtained from the lung bases to the pubic symphysis without IV contrast. This study was performed with techniques to keep radiation doses as low as reasonably achievable (ALARA). Individualized dose reduction techniques using automated exposure control or adjustment of mA and/or kV according to the patient's size were employed. CLINICAL HISTORY: GROSS HEMATURIA DYSURIA COMPARISON: 03/13/2021 FINDINGS: There are no renal or ureteral stones. There is no hydronephrosis or perinephric stranding. The gallbladder is absent. The remaining unenhanced solid abdominal organs are unremarkable. There is no evidence of small bowel obstruction. The previously seen thickened small-bowel loops on the prior exam are no longer seen on today's exam. The appendix is normal. There is a large amount of stool throughout the colon. The uterus is absent. There is diverticulosis without evidence of diverticulitis. There is no lymphadenopathy or ascites. No acute osseous abnormality is identified. IMPRESSION: Constipation, otherwise no acute abnormality. Reviewed, Interpreted and Dictated by Gloria Perez MD Transcribed by Daysi Tinoco Authenticated by Gloria Perez MD on 11/09/2021 01:20:00 PM [facility]
== END ==
PROVIDERS: PCP Internal Medicine Adolescent Medicine; Referring Provider Internal Medicine Pulmonary Disease; Visit Provider Internal Medicine Adolescent Medicine
DX: R06.02 Shortness of breath (principal)
CPT/HCPCS: 71046; 74176; 94060; 94618; 94640; 94727; 94729

== ENCOUNTER 2021-12-06 17:38 | Emergency (ER) | payer MEDICARE, BC, SELFPAY ==
[2021-12-06 18:25] VITALS: BP 184/78; PULSE 80; RESP 18; TEMP 36.8; O2SAT 99; BMI 31.1
--- NOTE | 2021-12-06 18:58 | HMH.EDGENADL ---
ED Disposition Clinical Impression: Abdominal cramping Vomiting Qualifiers: Vomiting type: unspecified Nausea presence: with nausea Qualified Code(s): R11.2 - Nausea with vomiting, unspecified Disposition: Home, Self-Care Condition on Discharge: Good Instructions: DI for Nausea -- Adult Additional Instructions: Phenergan as needed for nausea. Call Dr. Rodriguez tomorrow if symptoms persist. Return to the emergency department if any severe abdominal pain, fever, vomiting of blood, bloody stool. Referrals: Bhupendra Smith MD [Primary Care Provider] - - Critical Care Critical Care Time: No Attestation: On 12/06/21, the high probability of a clinically significant, sudden or life threatening deterioration of the following system(s) required my full and direct attention, intervention and personal management. The time I documented below is in addition to time spent performing reported procedures but includes the following listed in this critical care notation. Medical Decision Making - Tam Inquiry Pt receiving controlled substance: No Vital Signs: 12/06/21 18:25 Temperature 98.3 F Temperature Source Oral Pulse Rate [Right Radial] 80 Respiratory Rate 18 Blood Pressure [Right Arm] 184/78 H Blood Pressure Mean [Right Arm] 113 Blood Pressure Source [Right Arm] Automatic Cuff Blood Pressure Position [Right Arm] Sitting 02 Sat by Pulse Oximetry 99 Oxygen Delivery Method Room Air - Lab Data Lab Results 12/06/21 18:42: WBC 6.4, RBC 4.75, Hgb 13.6, Hct 42.3, MCV 88.9, MCH 28.7, MCHC 32.3, RDW 15.4, Plt Count 209, MPV 9.0, Neut % (Auto) 85.1 H, Lymph % (Auto) 10.4, [place] % (Auto) 2.5, Eos % (Auto) 0.8, Baso % (Auto) 1.2, Neut # (Auto) 5.5, Lymph # (Auto) 0.7, [place] # (Auto) 0.2, Eos # (Auto) 0.1, Baso # (Auto) 0.1 12/06/21 18:42: Sodium 140, Potassium 3.5, Chloride 101, Carbon Dioxide 31 H, Anion Gap 11.5, BUN 8, Creatinine 0.60, Estimated Creat Clear 57, Estimated GFR 97, Est GFR ( Amer) 118, Glucose 123 H, Calcium 9.7, Total Bilirubin 0.8, AST 43 H, ALT 22, Alkaline Phosphatase 111, Total Protein 7.5, Albumin 4.7, Globulin 2.8, Albumin/Globulin Ratio 1.7, Amylase 78, Lipase 57 12/06/21 18:42: Troponin I < 0.01 12/06/21 19:31: Urine Color Yellow, Urine Appearance Clear, Urine pH 7.5, Ur Specific [place] 1.020, Urine Protein Trace, Urine Glucose (UA) Negative, Urine Ketones 2+, Urine Blood Trace-i, Urine Nitrate Negative, Urine Bilirubin Negative, Urine Urobilinogen 0.2, Ur Leukocyte Esterase Trace Result diagrams: 12/06/21 18:42 12/06/21 18:42 Orders (Tests/Meds): ED MEDICATIONS Generic Name Dose Route Start Last Admin Trade Name Freq PRN Reason Stop Dose Admin Sodium Chloride 10 ml 12/06/21 18:30 Sodium Chloride 0.9% 10ml Flush Syringe IV 01/05/22 18:29 NEEDED PRN Maintain IV Site Discontinued Medications Generic Name Dose Route Start Last Admin Trade Name Freq PRN Reason Stop Dose Admin Sodium Chloride 1,000 mls @ 999 mls/hr 12/06/21 18:30 12/06/21 18:52 Sod Chlor 0.9% 1000ml Bag IV 12/06/21 19:30 999 mls/hr .Q1H1M ONE Administration Promethazine HCl 12.5 mg 12/06/21 18:30 12/06/21 18:52 Promethazine Hcl 25mg/Ml 1ml Vial IV 12/06/21 18:31 12.5 mg ONCE ONE Administration Sodium Chloride 25 ml 12/06/21 18:30 Sodium Chloride 0.9% 25ml Bag IV 12/06/21 18:31 ONCE ONE ORDERS Category Date Time Status Complete Blood Count Auto Diff Stat Lab 12/06/21 18:42 Results Troponin I Q3H Lab 12/06/21 22:15 Ordered Troponin I Q3H Lab 12/07/21 01:15 Ordered Urinalysis and Microscopic Stat Lab 12/06/21 19:31 Results - ECG Data Tracing #1 EKG interpreted by Jeb Georges MD: Rhythm: sinus Rate: 71 Patrick: normal Ectopy: none Conduction: normal ST Segment Changes: none T Wave Changes: none Q Waves: none No evidence of acute ischemia or injury Normal electrocardiogram - Reevaluation(s) Time: 20:01 Reevaluation #1:
[2021-12-06 19:07] LABS: Basophils # 0.1 K/mm3 (0-0.2); Basophils % 1.2 % (0.1-2.0); Eosinophils # 0.1 K/mm3 (0.0-0.4); Eosinophils % 0.8 % (0.1-12.0); Hematocrit 42.3 % (37.0-47.0); Hemoglobin 13.6 g/dL (12.2-16.2); Lymphocytes # 0.7 K/mm3 (0.7-4.5); Lymphocytes % 10.4 % (10-50); Mean Corpuscular HGB Conc 32.3 g/dL (31.8-35.4); Mean Corpuscular Hemoglobin 28.7 pg (27.0-31.2); Mean Corpuscular Volume 88.9 fl (81-99); Monocytes # 0.2 K/mm3 (0.1-1.0); Monocytes % 2.5 % (1.7-9.3); Neutrophils # 5.5 K/mm3 (1.8-7.8); Neutrophils % 85.1 % (37.0-80.0); Platelet Count 209 K/mm3 (142-424); Red Blood Count 4.75 M/mm3 (4.20-5.40); Red Cell Distribution Width 15.4 % (11.5-17.5); White Blood Count 6.4 K/mm3 (4.8-10.8)
[2021-12-06 19:11] LABS: MANUAL DIFFERENTIAL MANUAL DIFFERENTIAL (MANUAL DIFF)
[2021-12-06 19:15] LABS: Chloride 101 mmol/L (98-107); Potassium 3.5 mmoL/L (3.5-5.1); Sodium 140 mmol/L (136-145)
--- NOTE | 2021-12-06 19:15 | ECG_ITS ---
APPROVED REPORT Exam: Resting ECG HR:71 bpm ECG Measurements Heart Rate 71 AXES NM 187 P 52 QRSd 86 QRS 31 QT 382 T 41 QTc 405 Conclusion SINUS RHYTHM NORMAL ECG UNCONFIRMED REPORT Electronically signed by : Bhupendra Smith MD 12/07/2021 08:25:08
[2021-12-06 19:17] LABS: Alanine Aminotransferase 22 U/L (12-78); Amylase 78 U/L (30-110); Aspartate Amino Transferase 43 U/L (14-36); Blood Urea Nitrogen 8 mg/dl (7-17); Creatinine Clearance Estimated 57 mL/min (50-200); Estimated Glomerular Filt Rate 97 ml/min (>60); GFR (African American) 118 ML/MIN (>60)
[2021-12-06 19:18] LABS: Albumin Level 4.7 g/dl (3.5-5.0); Albumin/Globulin Ratio 1.7 (1.1-1.8); Alkaline Phosphatase 111 U/L (38-126); Anion Gap 11.5 mEq/L (5-15); Bilirubin,Total 0.8 mg/dl (0.2-1.3); Calcium 9.7 mg/dl (8.4-10.2); Carbon Dioxide 31 mmol/L (22.0-30.0); Globulin 2.8 g/dL (1.3-3.2); Glucose 123 mg/dl (74-100); Lipase 57 U/L (23-300); Total Protein,Serum 7.5 g/dl (6.3-8.2)
--- NOTE | 2021-12-06 19:26 | PC.NURSE ---
Pt up ambulating to restroom at this time
[2021-12-06 19:38] LABS: Microscopic, Urine URINE MICROSCOPIC (MICROSCOPIC)
[2021-12-06 19:41] LABS: Appearance,Urine CLEAR (Clear); Bilirubin,Urine Negative (Negative); Blood, Urine TRACE-I (Negative); Color,Urine YELLOW (Yellow); Glucose,Urine (UA) Negative (Negative); Ketones,Urine 2+ (Negative); Leukocyte Esterase,Urine TRACE (Negative); Nitrate,Urine Negative (Negative); PH,Urine 7.5 (5.0-8.5); Protein,Urine TRACE (Negative); Urobilinogen,Urine 0.2 EU/dl (0.2)
[2021-12-06 19:47] LABS: Troponin I < 0.01 ng/ml (0.00-0.034)
[2021-12-06 20:05] VITALS: BP 170/71; PULSE 72; RESP 16; TEMP 37.1; O2SAT 98
[2021-12-06 20:05] LABS: WBC,Urine Occasional #/hpf (0-3)
[2021-12-06 20:45] LABS: Lymphocytes % 9 % (10-50); Monocytes % 1 % (2-9); Neutrophils % 90 % (42-76); Total Cells Counted 100
[2021-12-06 20:46] LABS: Platelet Estimate Normal
== END 2021-12-06 20:33 | disposition home or self-care (01) ==
LOC: UTC 17:43 → ER 18:05
PROVIDERS: Emergency Provider Emergency Medicine; PCP Internal Medicine Adolescent Medicine
DX: R19.7 Diarrhea, unspecified (principal); Z98.890 Other specified postprocedural states; R10.9 Unspecified abdominal pain; R11.2 Nausea with vomiting, unspecified; Z88.8 Allergy status to other drugs, medicaments and biological substances; J45.909 Unspecified asthma, uncomplicated; I25.10 Atherosclerotic heart disease of native coronary artery without angina pectoris; K21.9 Gastro-esophageal reflux disease without esophagitis; E78.5 Hyperlipidemia, unspecified; I10 Essential (primary) hypertension; I73.9 Peripheral vascular disease, unspecified; R00.2 Palpitations
CPT/HCPCS: 80053; 81001; 82150; 83690; 84484; 85007; 85025; 93005; 96365; 96375; 99284

== ENCOUNTER → 2022-04-11 12:37 | Outpatient (CLI) | payer MEDICARE, BC, SELFPAY ==
--- NOTE | 2022-04-11 12:37 | CT_ITS ---
FINAL REPORT CLINICAL HISTORY: fall and head injury x 5 days ago FINDINGS: Axial images of the head were obtained without contrast. Coronal reformatted images were also obtained. This study was performed with techniques to keep radiation doses as low as reasonably achievable (ALARA). Individualized dose reduction techniques using automated exposure control or adjustment of mA and/or kV according to the patient''s size were employed. There is generalized age-appropriate atrophy. Periventricular low-attenuation areas are seen consistent with mild chronic ischemic changes. There is no evidence of intracranial hemorrhage or mass. There is no evidence of acute infarct. There is no evidence of shift of the midline structures. No skull abnormality is seen on the bone window images. There are postoperative changes of the left globe. There is a retention cyst or polyp in the right maxillary sinus. There is left frontal scalp soft tissue swelling or hemorrhage. IMPRESSION: Atrophy and mild periventricular chronic ischemic changes. No acute intracranial abnormality identified. Reviewed, Interpreted and Dictated by Shawn Jay III, MD Transcribed by Dada Carter Authenticated and . [facility]
[2022-04-11 13:15] LABS: Basophils # 0.1 K/mm3 (0-0.2); Basophils % 1.1 % (0.1-2.0); Eosinophils # 0.1 K/mm3 (0.0-0.4); Eosinophils % 1.8 % (0.1-12.0); Hematocrit 40.5 % (37.0-47.0); Hemoglobin 13.3 g/dL (12.2-16.2); Lymphocytes # 1.4 K/mm3 (0.7-4.5); Lymphocytes % 25.3 % (10-50); Mean Corpuscular HGB Conc 32.8 g/dL (31.8-35.4); Mean Corpuscular Hemoglobin 29.9 pg (27.0-31.2); Mean Corpuscular Volume 91.1 fl (81-99); Mean Platelet Volume 8.5 fl (7.4-10.4); Monocytes # 0.2 K/mm3 (0.1-1.0); Monocytes % 4.2 % (1.7-9.3); Neutrophils # 3.6 K/mm3 (1.8-7.8); Neutrophils % 67.5 % (37.0-80.0); Platelet Count 225 K/mm3 (142-424); Red Blood Count 4.45 M/mm3 (4.20-5.40); Red Cell Distribution Width 13.7 % (11.5-17.5); White Blood Count 5.4 K/mm3 (4.8-10.8)
[2022-04-11 19:23] LABS: Alanine Aminotransferase 17 U/L (12-78); Albumin/Globulin Ratio 1.8 (1.1-1.8); Alkaline Phosphatase 112 U/L (38-126); Anion Gap 13.5 mEq/L (5-15); Aspartate Amino Transferase 29 U/L (14-36); Bilirubin,Total 0.6 mg/dl (0.2-1.3); Blood Urea Nitrogen 19 mg/dl (7-17); Calcium 8.6 mg/dl (8.4-10.2); Carbon Dioxide 33 mmol/L (22.0-30.0); Chloride 97 mmol/L (98-107); Estimated Glomerular Filt Rate 97 ml/min (>60); GFR (African American) 118 ML/MIN (>60); Globulin 2.2 g/dL (1.3-3.2); Glucose 91 mg/dl (74-100); Potassium 4.5 mmoL/L (3.5-5.1); Sodium 139 mmol/L (136-145); Total Protein,Serum 6.2 g/dl (6.3-8.2)
[2022-04-11 19:55] LABS: Thyroid Stimulating Hormone 0.14 uIU/mL (0.465-4.68)
[2022-04-11 20:31] LABS: Vitamin B12 760 pg/mL (239-931)
[2022-04-11 20:37] LABS: Folate > 20.00 ng/mL
== END ==
PROVIDERS: PCP Family Medicine; Visit Provider Specialist
DX: S06.0XAA Concussion with loss of consciousness status unknown, initial encounter (principal); R41.3 Other amnesia; E78.2 Mixed hyperlipidemia
CPT/HCPCS: 36415; 70450; 80053; 82607; 82746; 84443; 85025

== ENCOUNTER → 2022-05-09 13:46 | Outpatient (CLI) | payer MEDICARE, BC, SELFPAY ==
--- NOTE | 2022-05-09 13:46 | MR_ITS ---
FINAL REPORT CLINICAL HISTORY: Progressive aphasia memory loss x 1 year COMPARISON: November 2020 FINDINGS: Multiplanar MR imaging of the brain was performed without contrast. There is mild age-appropriate atrophy. There are scattered foci of increased T2 signal in the cerebral white matter that have a nonspecific appearance but likely represent mild chronic ischemic/gliotic changes. There is no evidence of intracranial hemorrhage or mass. No abnormal ventricular dilatation is identified. No abnormal extra-axial fluid collection is seen. No abnormality is seen on the diffusion weighted images. The posterior fossa and brainstem are unremarkable. Normal major vessel vascular flow voids are seen. There is mild mucosal thickening in the right sphenoid sinus, stable. IMPRESSION: Age-appropriate atrophy and mild chronic ischemic/gliotic changes. No acute intracranial abnormality. Stable exam. Reviewed, Interpreted and Dictated by Shawn Jay III, MD Transcribed by Dada Carter Authenticated and [facility]
== END ==
PROVIDERS: PCP Specialist; Visit Provider Specialist
DX: R47.9 Unspecified speech disturbances (principal); R47.1 Dysarthria and anarthria
CPT/HCPCS: 70551

== ENCOUNTER → 2022-07-27 12:04 | Outpatient (CLI) | payer MEDICARE, BC, SELFPAY | PROVIDERS: PCP Family Medicine; Visit Provider Internal Medicine Cardiovascular Disease | DX: R55 Syncope and collapse (principal) | CPT/HCPCS: 93225 ==

== ENCOUNTER → 2023-01-14 13:42 | Outpatient (CLI) | payer MEDICARE, BC, SELFPAY ==
--- NOTE | 2023-01-14 13:43 | CT_ITS ---
FINAL REPORT CLINICAL HISTORY: recent fall, right side weakness COMPARISON: 04/11/2022 FINDINGS: Axial images of the head were obtained without contrast. Coronal reformatted images were also obtained.This study was performed with techniques to keep radiation doses as low as reasonably achievable (ALARA). Individualized dose reduction techniques using automated exposure control or adjustment of mA and/or kV according to the patient''s size were employed. There is age-appropriate atrophy and mild chronic microvascular ischemic change. Postoperative changes are noted of the left globe. There is no evidence of intracranial hemorrhage or mass. The ventricular size is within normal limits. There is no evidence of shift of the midline structures. No abnormal extra axial fluid collection is identified. No skull abnormality is seen on the bone window images. IMPRESSION: No acute intracranial abnormality. Reviewed, Interpreted and Dictated by Shawn Jay III, MD Transcribed by Marlene Guerra Authenticated and [facility]
== END ==
PROVIDERS: PCP Family Medicine; Visit Provider Specialist
DX: F02.80 Dementia in other diseases classified elsewhere, unspecified severity, without behavioral disturbance, psychotic disturbance, mood disturbance, and anxiety (principal); G31.01 Pick's disease; R29.6 Repeated falls; R29.898 Other symptoms and signs involving the musculoskeletal system
CPT/HCPCS: 70450

== ENCOUNTER 2023-03-02 22:55 | Emergency (ER) | payer MEDICARE, BC, SELFPAY ==
[2023-03-02 22:55] VITALS: BP 159/68; PULSE 87; RESP 16; TEMP 36.4; O2SAT 98; BMI 28.9
--- NOTE | 2023-03-02 23:11 | HMH.EDGENADL ---
Discharge Plan Disposition Patient Disposition: Home, Self-Care Condition: Good Prescriptions Prescriptions: New promethazine 25 mg tablet 12.5 mg PO Q6H PRN (Reason: nausea and vomiting) Qty: 20 0RF No Action furosemide [Lasix] 20 mg tablet 20 mg PO DAILY fiber Tablet,Chewable See Rx Instructions PO .COMPLEX Rx Instructions: orally I EVERYDAY; montelukast [Singulair] 10 mg tablet 10 mg PO DAILY Qty: 30 2RF fluticasone propionate [Allergy Relief (fluticasone)] 50 mcg/actuation spray,suspension 1 spray NS DAILY 90 Days Qty: 48 0RF lactobacillus combination no.8 [Adult Probiotic] 3 billion cell capsule 1 cap PO DAILY omeprazole 20 mg capsule,delayed release(DR/EC) 20 mg PO BID Patient Comments: TAKE 1 CAPSULE BY MOUTH TWICE A DAY memantine [Namenda] 10 mg tablet 10 mg PO BID MDD 20 mg 90 Days Qty: 180 3RF venlafaxine 150 mg tablet extended release 24hr See Rx Instructions .ROUTE .COMPLEX Qty: 90 3RF Dose Instruction: TAKE 1 TABLET BY MOUTH EVERY DAY Rx Instructions: TAKE 1 TABLET BY MOUTH EVERY DAY albuterol sulfate 90 mcg/actuation HFA aerosol inhaler 2 inh IH QID PRN (Reason: shortness of breath or wheezing) Qty: 8.5 1RF levothyroxine [Synthroid] 150 mcg tablet 150 mcg PO .6 days a week 90 Days Qty: 90 0RF Rx Instructions: 150 mcg orally daily x6 days ,skip wed; Xarelto 20 mg tablet See Rx Instructions .ROUTE .COMPLEX Qty: 90 3RF Dose Instruction: TAKE 1 TABLET BY MOUTH EVERY DAY FOR BLOOD THINNER Rx Instructions: TAKE 1 TABLET BY MOUTH EVERY DAY FOR BLOOD THINNER famotidine 20 mg tablet See Rx Instructions .ROUTE .COMPLEX Qty: 180 1RF Dose Instruction: TAKE 1 TABLET BY MOUTH TWICE A DAY FOR 90 DAYS Rx Instructions: TAKE 1 TABLET BY MOUTH TWICE A DAY FOR 90 DAYS lisinopril 5 mg tablet 5 mg PO DAILY Qty: 90 3RF atenolol 50 mg tablet See Rx Instructions .ROUTE .COMPLEX Qty: 90 0RF Dose Instruction: TAKE 1 TABLET BY MOUTH EVERY DAY FOR HYPERTENSION Rx Instructions: TAKE 1 TABLET BY MOUTH EVERY DAY FOR HYPERTENSION atorvastatin 40 mg tablet See Rx Instructions .ROUTE .COMPLEX Qty: 90 0RF Dose Instruction: TAKE 1 TABLET BY MOUTH EVERY NIGHT AT BEDTIME FOR CHOLESTEROL Rx Instructions: TAKE 1 TABLET BY MOUTH EVERY NIGHT AT BEDTIME FOR CHOLESTEROL triamcinolone acetonide 0.1 % ointment See Rx Instructions .ROUTE .COMPLEX Qty: 30 2RF Dose Instruction: APPLY TOPICALLY DAILY Rx Instructions: APPLY TOPICALLY DAILY [id number] acid-lutein 1 EACH tablet,chewable 1 each PO DAILY calcium carbonate-vitamin D3 1 EACH tablet 1 each PO DAILY flaxseed-omega3,6,9-fatty acid 1,[id number] mg capsule 1 cap PO DAILY Referrals Follow up/Referrals: Reid Quintana MD [Primary Care Provider] - See instructions Activity Restrictions/Add. Instructions Additional Instructions/Restrictions: Please follow-up with your primary care provider. Please return to the emergency department if you develop any new or worsening symptoms or become concerned for your health. A prescription for Phenergan has been sent to your pharmacy. Clinical Impressions Clinical Impression: Vomiting, Fronto-temporal dementia Instructions Patient Instructions: DI for Diarrhea and Traveler's Diarrhea -- Adult, DI for Diarrhea and Traveler's Diarrhea -- Child, DI for Nausea -- Adult, DI for Nausea -- Child Discharge ED Provider: Alton Cornejo General Adult [facility] General Chief complaint: Nausea/Vomiting/Diarrhea Stated complaint: vomiting/Abd pain Time Seen by Provider: 03/02/23 23:00 Mode of Arrival: EMS Source of Information: Patient, Spouse and EMS Limitations: patient with fronal lobe dementia/slurred speech at baseline Description of Symptoms (Recalled from ER Triage Doc. by RN): Patient to ED via [facility]. Ems reports that patient ate grap
[2023-03-02 23:27] LABS: Basophils % 0.3 % (0.1-2.0); Eosinophils # 0.1 K/mm3 (0.0-0.4); Eosinophils % 1.1 % (0.1-12.0); Hematocrit 45.4 % (37.0-47.0); Hemoglobin 14.3 g/dL (12.2-16.2); Lymphocytes % 8.2 % (10-50); Mean Corpuscular HGB Conc 31.6 g/dL (31.8-35.4); Mean Corpuscular Hemoglobin 29.7 pg (27.0-31.2); Mean Corpuscular Volume 93.9 fl (81-99); Mean Platelet Volume 8.8 fl (7.4-10.4); Monocytes # 0.6 K/mm3 (0.1-1.0); Monocytes % 4.5 % (1.7-9.3); Neutrophils # 10.4 K/mm3 (1.8-7.8); Neutrophils % 85.8 % (37.0-80.0); Platelet Count 218 K/mm3 (142-424); Red Blood Count 4.83 M/mm3 (4.20-5.40); Red Cell Distribution Width 13.4 % (11.5-17.5); White Blood Count 12.1 K/mm3 (4.8-10.8)
[2023-03-02 23:29] LABS: Anion Gap 13.8 mEq/L (5-15); Blood Urea Nitrogen 14 mg/dl (7-17); Calcium 8.9 mg/dl (8.4-10.2); Carbon Dioxide 33 mmol/L (22.0-30.0); Chloride 99 mmol/L (98-107); Creatinine Clearance Estimated 52 mL/min (50-200); Estimated Glomerular Filt Rate 81 ml/min (>60); GFR (African American) 98 ML/MIN (>60); Glucose 93 mg/dl (74-100); Potassium 4.8 mmoL/L (3.5-5.1); Sodium 141 mmol/L (136-145)
[2023-03-02 23:30] VITALS: BP 126/56; PULSE 91; O2SAT 98
[2023-03-02 23:30] LABS: MANUAL DIFFERENTIAL MANUAL DIFFERENTIAL (MANUAL DIFF)
[2023-03-02 23:38] LABS: Alanine Aminotransferase 22 U/L (12-78); Alkaline Phosphatase 109 U/L (38-126); Aspartate Amino Transferase 36 U/L (14-36); Bilirubin,Total 0.7 mg/dl (0.2-1.3); Lipase 124 U/L (23-300)
[2023-03-02 23:39] LABS: Albumin/Globulin Ratio 1.7 (1.1-1.8); Globulin 2.4 g/dL (1.3-3.2); Total Protein,Serum 6.4 g/dl (6.3-8.2)
[2023-03-02 23:42] LABS: Eosinophils % 2 % (0-3); Lymphocytes % 13 % (10-50); Monocytes % 2 % (2-9); Neutrophils % 83 % (42-76); Total Cells Counted 100
[2023-03-02 23:43] LABS: Platelet Estimate Normal; RBC Morphology Normal
[2023-03-03] VITALS: BP 136/61; PULSE 99; O2SAT 99
[2023-03-03 00:30] VITALS: BP 143/72; PULSE 98; O2SAT 98
[2023-03-03 01:00] VITALS: BP 143/82; PULSE 101; O2SAT 97
[2023-03-03 01:07] LABS: Microscopic, Urine URINE MICROSCOPIC (MICROSCOPIC)
[2023-03-03 01:08] LABS: Appearance,Urine CLEAR (Clear); Bilirubin,Urine Negative (Negative); Blood, Urine Negative (Negative); Color,Urine YELLOW (Yellow); Glucose,Urine (UA) Negative (Negative); Ketones,Urine Negative (Negative); Leukocyte Esterase,Urine Negative (Negative); Nitrate,Urine Negative (Negative); Protein,Urine Negative (Negative); Urobilinogen,Urine 0.2 EU/dl (0.2)
[2023-03-03 01:21] LABS: Bacteria,Urine Trace /lpf; Hyaline Casts,Urine Occasional #/lpf (0); Squamous Epithelial Cell,Urine Occasional #/hpf (0-5); Yeast,Urine Occasional /lpf
--- NOTE | 2023-03-03 01:24 | PC.NURSE ---
in room talking with patient at this time.
[2023-03-03 01:27] VITALS: BP 143/82; PULSE 96; RESP 18; TEMP 36.8; O2SAT 97
[2023-03-03 01:30] VITALS: BP 125/57; PULSE 94; O2SAT 97
== END 2023-03-03 01:50 | disposition home or self-care (01) ==
PROVIDERS: Emergency Provider Emergency Medicine; PCP Family Medicine
DX: R11.2 Nausea with vomiting, unspecified (principal); R53.1 Weakness; G31.09 Other frontotemporal neurocognitive disorder; I48.91 Unspecified atrial fibrillation; I25.10 Atherosclerotic heart disease of native coronary artery without angina pectoris; E11.9 Type 2 diabetes mellitus without complications; E78.5 Hyperlipidemia, unspecified; I10 Essential (primary) hypertension; E03.9 Hypothyroidism, unspecified; G47.33 Obstructive sleep apnea (adult) (pediatric); Z87.891 Personal history of nicotine dependence; I27.20 Pulmonary hypertension, unspecified
CPT/HCPCS: 80053; 81001; 83690; 85007; 85025; 96374; 99285

== ENCOUNTER → 2023-03-06 12:48 | Outpatient (CLI) | payer MEDICARE, BC, SELFPAY ==
--- NOTE | 2023-03-06 12:51 | CA_ITS ---
FINAL REPORT CLINICAL HISTORY: toes bilateral purple COMPARISON: None FINDINGS: BILATERAL LOWER EXTREMITY DUPLEX DOPPLER Color Doppler and duplex Doppler of the bilateral lower extremity was performed. Spectral analysis was also performed. Velocities were measured at multiple levels. All velocities are in centimeters per second. RIGHT CONTACT REPRESENTATIVE: 97 Prof A: 68 SFA Prox: 90 SFA Mid: 70 SFA Distal: 67 PHYSICIAN GENERAL INTERNAL MEDICINE: 61 ADIS: 112 Per A prox: 51 [place]STER: 1.2 Waveforms are triphasic. LEFT CONTACT REPRESENTATIVE: 75 Prof A: 63 SFA Prox: 81 SFA Mid: 73 SFA Distal: 82 PHYSICIAN GENERAL INTERNAL MEDICINE: 95 ADIS: 89 Per A prox: 88 [place]: 1.3 Waveforms are triphasic. IMPRESSION: Waveforms are noted to be triphasic. No levels of stenosis or occlusion are identified. Reviewed, Interpreted and Dictated by Ellis Mcconnell MD Transcribed by Agatha Choi Authenticated and [facility]
== END ==
PROVIDERS: PCP Family Medicine; Visit Provider Family Medicine
DX: R23.0 Cyanosis; R09.89 Other specified symptoms and signs involving the circulatory and respiratory systems
CPT/HCPCS: 93925

== ENCOUNTER 2023-06-09 11:31 | Emergency (ER) | payer MEDICARE, BC, SELFPAY ==
[2023-06-09 11:32] VITALS: BP 135/60; PULSE 99; RESP 18; TEMP 36.9; O2SAT 100; BMI 28.5
--- NOTE | 2023-06-09 11:52 | CT_ITS ---
PROCEDURE INFORMATION: Exam: CT Pelvis Without Contrast; Skeletal Exam date and time: 06/09/2023 12:51 PM Age: 77 years old Clinical indication: Pain and injury or trauma; Fall; Blunt trauma (contusions or hematomas); Hip pain; Right hip; Injury date: 06/08/23; Injury details: Pain RT hip; Additional info: Fall, pelvis and right hip pain TECHNIQUE: Imaging protocol: Computed tomography of the pelvis without contrast. Exam focused on the skeleton. Radiation optimization: All CT scans at this facility use at least one of these dose optimization techniques: automated exposure control; mA and/or kV adjustment per patient size (includes targeted exams where dose is matched to clinical indication); or iterative reconstruction. REPORTING DATA: Count of CT and Cardiac NM exams in prior 12 months: This patient has received [address] and 0 known cardiac nuclear medicine studies in the 12 months prior to the current study. COMPARISON: CT ABDOMEN PELVIS WO CON 11/09/2021 11:45 AM FINDINGS: Bones/joints: Unremarkable. No acute fracture. No dislocation. Soft tissues: Unremarkable. IMPRESSION: No acute findings.
--- NOTE | 2023-06-09 11:56 | HMH.EDGENADL ---
Discharge Plan Disposition Chief Complaint: PAIN Prescriptions Prescriptions: No Action furosemide [Lasix] 20 mg tablet 20 mg PO DAILY fluticasone propionate [Allergy Relief (fluticasone)] 50 mcg/actuation spray,suspension 1 spray NS DAILY 90 Days Qty: 48 0RF memantine [Namenda] 10 mg tablet 10 mg PO BID MDD 20 mg 90 Days Qty: 180 3RF sulfamethoxazole-trimethoprim 800-160 mg tablet 1 tab PO BID Qty: 20 0RF albuterol sulfate 90 mcg/actuation HFA aerosol inhaler 2 inh IH QID PRN (Reason: shortness of breath or wheezing) Qty: 8.5 1RF levothyroxine [Synthroid] 150 mcg tablet 150 mcg PO .6 days a week 90 Days Qty: 90 0RF Rx Instructions: 150 mcg orally daily x6 days ,skip sat; Xarelto 20 mg tablet See Rx Instructions .ROUTE .COMPLEX Qty: 90 3RF Dose Instruction: TAKE 1 TABLET BY MOUTH EVERY DAY FOR BLOOD THINNER Rx Instructions: TAKE 1 TABLET BY MOUTH EVERY DAY FOR BLOOD THINNER lisinopril 5 mg tablet 5 mg PO DAILY Qty: 90 3RF triamcinolone acetonide 0.1 % ointment See Rx Instructions .ROUTE .COMPLEX Qty: 30 2RF Dose Instruction: APPLY TOPICALLY DAILY Rx Instructions: APPLY TOPICALLY DAILY omeprazole 20 mg capsule,delayed release(DR/EC) 20 mg PO BID 90 Days Qty: 180 1RF Patient Comments: TAKE 1 CAPSULE BY MOUTH TWICE A DAY atorvastatin 40 mg tablet See Rx Instructions .ROUTE .COMPLEX Qty: 90 0RF Dose Instruction: TAKE 1 TABLET BY MOUTH EVERY NIGHT AT BEDTIME FOR CHOLESTEROL Rx Instructions: TAKE 1 TABLET BY MOUTH EVERY NIGHT AT BEDTIME FOR CHOLESTEROL montelukast [Singulair] 10 mg tablet 10 mg PO DAILY 90 Days Qty: 90 0RF famotidine 20 mg tablet See Rx Instructions .ROUTE .COMPLEX Qty: 180 1RF Dose Instruction: TAKE 1 TABLET BY MOUTH TWICE A DAY FOR 90 DAYS Rx Instructions: TAKE 1 TABLET BY MOUTH TWICE A DAY FOR 90 DAYS venlafaxine 150 mg tablet extended release 24hr See Rx Instructions .ROUTE .COMPLEX Qty: 90 0RF Dose Instruction: TAKE 1 TABLET BY MOUTH EVERY DAY Rx Instructions: TAKE 1 TABLET BY MOUTH EVERY DAY atenolol 50 mg tablet See Rx Instructions .ROUTE .COMPLEX Qty: 90 0RF Dose Instruction: TAKE 1 TABLET BY MOUTH EVERY DAY FOR HYPERTENSION Rx Instructions: TAKE 1 TABLET BY MOUTH EVERY DAY FOR HYPERTENSION [id number]-vaijp acid-lutein 1 EACH tablet,chewable 1 each PO DAILY calcium carbonate-vitamin D3 1 EACH tablet 1 each PO DAILY Referrals Follow up/Referrals: Reid Quintana MD [Primary Care Provider] - See instructions Activity Restrictions/Add. Instructions Additional Instructions/Restrictions: There is no evidence of any fracture or dislocation or any other abnormality on the patient's hip. Please continue to take pumh-hkf-gzzuobr pain medication for pain otherwise follow-up with Dr. Quintana and you may need a referral to Dr. Norman or pain specialist if this continues from a chronic standpoint. Clinical Impressions Clinical Impression: Hip pain, right, Fall Discharge ED Provider: John Elam [facility] Adult HPI General Chief complaint: PAIN Stated complaint: AO fall 06/08, right hip pain Time Seen by Provider: 06/09/23 11:49 Mode of Arrival: Wheelchair Source of Information: Patient and Spouse Limitations: No Limitations Description of Symptoms (Recalled from ER Triage Doc. by RN): c/o right hip pain after falling onto her bottom last night. states they were trying to help her to get soemthing with her walker when she went down on the ground, states she was at a chair height when she fell, denies hitting her head or other injuries at this time. says that she is to see podietary for the same hip and leg pain to where she is having pain all the time causing her right foot not to move well. History of Present Illness HPI narrative: Patient is a 77-year-old female with chronic right hip pain that has been
--- NOTE | 2023-06-09 12:46 | PC.NURSE ---
Pt gone to RAD via wheelchair
--- NOTE | 2023-06-09 12:57 | PC.NURSE ---
Pt returned from RAD
[2023-06-09 14:02] VITALS: BP 137/71; PULSE 88; O2SAT 99
[2023-06-09 14:08] VITALS: BP 137/71; PULSE 84; RESP 16; TEMP 36.6; O2SAT 99
== END 2023-06-09 14:09 | disposition home or self-care (01) ==
PROVIDERS: Emergency Provider Student in an Organized Health Care Education/Training Program; PCP Family Medicine
DX: M25.551 Pain in right hip (principal); W18.30XA Fall on same level, unspecified, initial encounter; I35.1 Nonrheumatic aortic (valve) insufficiency; I48.0 Paroxysmal atrial fibrillation; I25.10 Atherosclerotic heart disease of native coronary artery without angina pectoris; E11.9 Type 2 diabetes mellitus without complications; E78.5 Hyperlipidemia, unspecified; I10 Essential (primary) hypertension; E03.9 Hypothyroidism, unspecified; G47.33 Obstructive sleep apnea (adult) (pediatric); I27.20 Pulmonary hypertension, unspecified
CPT/HCPCS: 72192; 99284

== ENCOUNTER 2023-06-24 13:34 | Outpatient (CLI) | payer MEDICARE, BC, SELFPAY ==
--- NOTE | 2023-06-24 13:41 | XR_ITS ---
FINAL REPORT CLINICAL HISTORY: Foot pain FINDINGS: LEFT FOOT Three views of the left foot demonstrate no acute fracture or dislocation. The visualized joint spaces are normally aligned. There are mild degenerative changes. Small calcaneal spurs are noted. The soft tissues are unremarkable. IMPRESSION: No acute bony abnormality. Reviewed, Interpreted and Dictated by Shawn Jay III, MD Transcribed by Marlene Guerra Authenticated and [facility]
--- NOTE | 2023-06-24 13:41 | XR_ITS ---
FINAL REPORT CLINICAL HISTORY: right foot pain FINDINGS: RIGHT FOOT 3 views of the right foot were obtained. There is no acute fracture or dislocation. There are mild degenerative changes. A small posterior calcaneal spur is noted. Visualized joint spaces are normally aligned. Soft tissues are unremarkable. IMPRESSION: No acute bony abnormality. Reviewed, Interpreted and Dictated by Shawn Jay III, MD Transcribed by Marlene Guerra Authenticated and [facility]
== END 2023-06-24 23:59 ==
LOC: RAD 13:36
PROVIDERS: PCP Family Medicine; Visit Provider Podiatrist
DX: M79.671 Pain in right foot (principal); M79.672 Pain in left foot
CPT/HCPCS: 73630

== ENCOUNTER 2023-07-12 13:10 | Outpatient (CLI) | payer MEDICARE, BC, SELFPAY ==
--- NOTE | 2023-07-12 13:14 | US_ITS ---
FINAL REPORT CLINICAL HISTORY: decreased sensation/pulses b/l LE, previous smoker, HTN, hyperlipidemia, bilateral skin color changes to feet, bilateral claudication, bilateral rest pain. FINDINGS: COMPLETE ANKLE/BRACHIAL INDICES BILATERAL Complete ankle brachial indices were obtained. The right CHESTER is 1.2. The left CHETSER is 1.2. IMPRESSION: ABIs are within normal limits bilaterally. Reviewed, Interpreted and Dictated by Ellis Mcconnell MD Transcribed by Daysi Tinoco Authenticated and [facility]
== END 2023-07-12 23:59 ==
PROVIDERS: PCP Family Medicine; Visit Provider Podiatrist
DX: R09.89 Other specified symptoms and signs involving the circulatory and respiratory systems (principal)
CPT/HCPCS: 93923

== ENCOUNTER 2023-08-14 11:31 | Emergency (ER) | payer MEDICARE, BC, SELFPAY ==
[2023-08-14] VITALS (7 sets, daily range): BP systolic 141–168; BP diastolic 69–86; PULSE 76–92; RESP 18; TEMP 36.8; O2SAT 98–100; BMI 29.2
--- NOTE | 2023-08-14 11:56 | PC.NURSE ---
Addendum entered by Lenore Kitchen RN 08/14/23 13:05: DR. CARABALLO Original Note: DR SUMNER AT BEDSIDE
--- NOTE | 2023-08-14 12:03 | CT_ITS ---
FINAL REPORT TECHNIQUE: Thin section axial images were obtained through the thoracic spine without contrast. Sagittal and coronal images were obtained from the axial data. CLINICAL HISTORY: fall, blunt injury FINDINGS: There is no acute fracture of the thoracic spine. There is no malalignment. Multilevel degenerative disease is noted with osteophyte formation and multilevel disc space narrowing. No acute paraspinal abnormality is identified. IMPRESSION: No acute osseous abnormality of the thoracic spine. Degenerative disc disease. Reviewed, Interpreted and Dictated by Gloria Perez MD Transcribed by Daysi Tinoco Authenticated and [facility]
--- NOTE | 2023-08-14 12:03 | CT_ITS ---
FINAL REPORT TECHNIQUE: Thin section axial images were obtained from the thoracic inlet through the upper abdomen after intravenous contrast injection. Reconstruction images were obtained from the axial data. Exam was performed using dose reduction technique. CLINICAL HISTORY: fall, blunt injury FINDINGS: Right prevascular lymph node measures 14 mm. Several smaller mediastinal lymph nodes are identified. There is no axillary or hilar lymphadenopathy. There is no pleural or pericardial effusion. There is no pneumothorax. There is a 4 mm left lower lobe nodule well seen on axial image 53. No acute osseous abnormality. IMPRESSION: No acute intrathoracic abnormality. Left lower lobe nodule. Recommend follow-up CT chest after risk stratification as per Fleischners criteria. Reviewed, Interpreted and Dictated by Gloria Perez MD Transcribed by Daysi Tinoco Authenticated and [facility]
--- NOTE | 2023-08-14 12:03 | CT_ITS ---
FINAL REPORT TECHNIQUE: Thin section axial images were obtained through the abdomen after intravenous contrast. Reconstruction images were obtained from the axial data. Exam was performed using dose reduction techniques. CLINICAL HISTORY: fall, blunt injury FINDINGS: The liver is homogeneous. The gallbladder is absent. The spleen, adrenal glands, and pancreas are unremarkable. There is no hydronephrosis or solid renal mass. Abdominal GI tract is without acute abnormality. There is no abdominal lymphadenopathy or ascites. There is no free air. There is very mild attenuation along the right lateral abdomen wall, soft tissue contusion is not excluded. The patient is status post hysterectomy. There is a large amount of stool throughout the colon. The appendix is normal. There is no pelvic lymphadenopathy or ascites. No acute osseous abnormalities identified. IMPRESSION: No evidence of solid organ injury or GI tract injury. Possible right abdomen wall soft tissue contusion. Constipation. Reviewed, Interpreted and Dictated by Gloria Perez MD Transcribed by Daysi Tinoco Authenticated and [facility]
--- NOTE | 2023-08-14 12:03 | CT_ITS ---
FINAL REPORT TECHNIQUE: Thin section axial images were obtained through the lumbar spine without contrast. Sagittal and coronal reconstruction images were obtained from the axial data. Exam was performed using dose reduction techniques. CLINICAL HISTORY: fall, blunt injury FINDINGS: There is no acute fracture or acute malalignment of the lumbar spine. Vertebral body height is preserved. There is mild multilevel degenerative disease with disc space narrowing and osteophyte formation. There is no significant central stenosis. Paraspinal soft tissues are within normal limits. There is no paraspinal mass or fluid collection. IMPRESSION: No acute abnormality of the lumbar spine. Mild multilevel degenerative disease. Reviewed, Interpreted and Dictated by Gloria Perez MD Transcribed by Daysi Tinoco Authenticated and [facility][1]
--- NOTE | 2023-08-14 12:05 | HMH.EDGENADL ---
Discharge Plan Disposition Patient Disposition: Home, Self-Care Prescriptions Prescriptions: New cefdinir 300 mg capsule 300 mg PO BID 10 Days Qty: 20 0RF No Action furosemide [Lasix] 20 mg tablet 20 mg PO DAILY fluticasone propionate [Allergy Relief (fluticasone)] 50 mcg/actuation spray,suspension 1 spray NS DAILY 90 Days Qty: 48 0RF memantine [Namenda] 10 mg tablet 10 mg PO BID MDD 20 mg 90 Days Qty: 180 3RF coenzyme Q10 [CoQ-10] 100 mg capsule 100 mg PO DAILY ashwagandha root extract 300 mg capsule PO ascorbate calcium (vitamin C) 500 mg tablet 500 mg PO DAILY tolterodine [Detrol LA] 2 mg capsule,extended release 24hr 2 mg PO DAILY Qty: 30 6RF albuterol sulfate 90 mcg/actuation HFA aerosol inhaler 2 inh IH QID PRN (Reason: shortness of breath or wheezing) Qty: 8.5 1RF levothyroxine [Synthroid] 150 mcg tablet 150 mcg PO .6 days a week 90 Days Qty: 90 0RF Rx Instructions: 150 mcg orally daily x6 days ,skip sat; Xarelto 20 mg tablet See Rx Instructions .ROUTE .COMPLEX Qty: 90 3RF Dose Instruction: TAKE 1 TABLET BY MOUTH EVERY DAY FOR BLOOD THINNER Rx Instructions: TAKE 1 TABLET BY MOUTH EVERY DAY FOR BLOOD THINNER lisinopril 5 mg tablet 5 mg PO DAILY Qty: 90 3RF triamcinolone acetonide 0.1 % ointment See Rx Instructions .ROUTE .COMPLEX Qty: 30 2RF Dose Instruction: APPLY TOPICALLY DAILY Rx Instructions: APPLY TOPICALLY DAILY venlafaxine 150 mg tablet extended release 24hr See Rx Instructions .ROUTE .COMPLEX Qty: 90 1RF Dose Instruction: TAKE 1 TABLET BY MOUTH EVERY DAY Rx Instructions: TAKE 1 TABLET BY MOUTH EVERY DAY atenolol 50 mg tablet See Rx Instructions .ROUTE .COMPLEX Qty: 90 1RF Dose Instruction: TAKE 1 TABLET BY MOUTH EVERY DAY FOR HYPERTENSION Rx Instructions: TAKE 1 TABLET BY MOUTH EVERY DAY FOR HYPERTENSION atorvastatin 40 mg tablet See Rx Instructions .ROUTE .COMPLEX Qty: 90 1RF Dose Instruction: TAKE 1 TABLET BY MOUTH EVERY NIGHT AT BEDTIME FOR CHOLESTEROL Rx Instructions: TAKE 1 TABLET BY MOUTH EVERY NIGHT AT BEDTIME FOR CHOLESTEROL montelukast [Singulair] 10 mg tablet 10 mg PO DAILY 90 Days Qty: 90 1RF omeprazole 20 mg capsule,delayed release(DR/EC) 20 mg PO BID 90 Days Qty: 180 1RF Patient Comments: TAKE 1 CAPSULE BY MOUTH TWICE A DAY famotidine 20 mg tablet See Rx Instructions .ROUTE .COMPLEX Qty: 180 1RF Dose Instruction: TAKE 1 TABLET BY MOUTH TWICE A DAY FOR 90 DAYS Rx Instructions: TAKE 1 TABLET BY MOUTH TWICE A DAY FOR 90 DAYS [id number] acid-lutein 1 EACH tablet,chewable 1 each PO DAILY calcium carbonate-vitamin D3 1 EACH tablet 1 each PO DAILY Referrals Follow up/Referrals: Reid Quintana MD [Primary Care Provider] - See instructions Activity Restrictions/Add. Instructions Additional Instructions/Restrictions: No significant traumatic abnormalities found on CT scans today. There is evidence of urinary tract infection on urinalysis and given the patient's flank pain we will treat as a kidney infection. However the flank pain is likely secondary to the hematoma from the fall. Please follow-up with primary care doctor for urine culture results return with any high fevers or other concerns. Lastly there is an incidental pulmonary nodule seen on CT scan you may also follow-up with your primary care doctor regarding surveillance of that abnormality. Clinical Impressions Clinical Impression: Hematoma of back, UTI (urinary tract infection), Incidental pulmonary nodule, Acute hyperkalemia Instructions Patient Instructions: DI for Low Back Pain Discharge ED Provider: John Elam General Adult HPI General Chief complaint: Back Pain/Injury Stated complaint: fall on 08/11/23, contusion on back Time Seen by Provider: 08/14/23 11:55 Mode of Arrival: Wheelchair Source of Information: Patient and Spouse Limitations: No Limitations Description of Symptoms (Recalled from ER Triage Doc. by RN): PT C/O MID BACK PAIN AFTER FALL AGAINST BED FRAME SATURDAY NIGHT, BRUISING NOTED. PT C/O LEFT ARM PAIN AFTER FALL BUT HAS IMPROVED. History of Present Illness HPI narrative: Patient is a 78-year-old female brought in today by her after a fall on Saturday and significant back pain swelling and bruising. States he initially was not that concerned but she had some discoloration of her urine recently without any blood in it but darker color which prompted the visit to the emergency department. States that she fell next to her bed that had some platforms and drawers under and he believes that she struck directly the middle of her back on that area. No lower extremity weakness or neurologic abnormalities since that fall. No head or neck injury. She is not on any anticoagulation. Related Data Home Medications Medication Instructions Recorded Confirmed calcium carbonate 600 mg-vitamin 1 each PO DAILY Supplement 05/03/20 07/17/23 D3 10 mcg (400 unit) tablet multivit with min-folic 1 each PO DAILY Supplement 05/03/20 07/17/23 acid-lutein 400 mcg-250 mcg chewable tablet furosemide 20 mg tablet (Lasix) 20 mg PO DAILY Fluid 01/26/22 07/17/23 ascorbate calcium (vitamin C) 500 500 mg PO DAILY 07/17/23 07/17/23 mg tablet ashwagandha root extract 300 mg mg PO 07/17/23 07/17/23 capsule coenzyme Q10 100 mg capsule 100 mg PO DAILY 07/17/23 07/17/23 (CoQ-10) Previous Rx's Medication Instructions Recorded albuterol sulfate 90 mcg/actuation 2 inh inhalation QID PRN shortness 07/23/22 aerosol inhaler of breath or wheezing #8.5 grams levothyroxine 150 mcg tablet 150 mcg PO .6 days a week Thyroid 09/07/22 (Synthroid) 90 days #90 tabs rivaroxaban 20 mg tablet (Xarelto) See Rx Instructions .Route 10/15/22 .COMPLEX #90 tabs lisinopril 5 mg tablet 5 mg PO DAILY #90 tabs 11/21/22 triamcinolone acetonide 0.1 % See Rx Instructions .Route 01/20/23 topical ointment .COMPLEX #30 grams memantine 10 mg tablet (Namenda) 10 mg PO BID Dementia 90 days #180 01/24/23 tabs fluticasone propionate 50 1 spray intranasal DAILY Allergy 02/27/23 mcg/actuation nasal symptoms 90 days #48 grams spray,suspension (Allergy Relief (fluticasone)) tolterodine 2 mg capsule,extended 2 mg PO DAILY Urinary incontinency 07/17/23 release 24 hr (Detrol LA) #30 caps atenolol 50 mg tablet See Rx Instructions .Route 07/26/23 .COMPLEX #90 tabs atorvastatin 40 mg tablet See Rx Instructions .Route 07/26/23 .COMPLEX #90 tabs famotidine 20 mg tablet See Rx Instructions .Route 07/26/23 .COMPLEX #180 tabs montelukast 10 mg tablet 10 mg PO DAILY 90 days #90 tabs 07/26/23 (Singulair) omeprazole 20 mg capsule,delayed 20 mg PO BID GERD 90 days #180 caps 07/26/23 release venlafaxine 150 mg tablet,extended See Rx Instructions .Route 07/26/23 release 24 hr .COMPLEX #90 tabs cefdinir 300 mg capsule 300 mg PO BID 10 days #20 caps 08/14/23 Allergies Allergy/AdvReac Type Severity Reaction Status Date / Time house dust Allergy Verified 07/17/23 15:27 pollen extracts Allergy Verified 07/17/23 15:27 ondansetron AdvReac Verified 07/17/23 15:27 [From Zofran (as hydrochloride)] [facility] Disclaimer: The information contained in this section may have been updated after the patient was seen, as this information can be updated by other users. Medical History 2nd degree atrioventricular block Abnormal echocardiogram Anterior epistaxis Aortic regurgitation Atrial fibrillation CAD (coronary artery disease) Diabetes mellitus Dyspnea on exertion Elevated brain natriuretic peptide (BNP) level GERD with esophagitis History of atrial fibrillation History of basal cell cancer History of benign pharyngeal tumor History of sleep apnea Hyperlipidemia Hypertensive disorder Hypothyroid Near syncope Nocturnal hypoxemia On O2 at night Obesity (BMI 30.0-34.9) Obstructive sleep apnea syndrome Pros and cons of holding of BiPAP therapy while waiting for unit replacement were discussed today. Symptoms, cognitive deficits, expressive aphasia-progressively rapidly since to quit is not BiPAP longer than a year ago. Plan: Advised to resume BiPAP will see if qualify for new unit or has to wait for a replacement unit. Prescription was sent to [facility]. She will resume therapy with O2 as directed by her affirmative action officer pending reevaluation. Consider formal titration and discontinuation of O2 if possible after checking compliance report on BiPAP The patient was advised to work on lifestyle modification including weight loss, diet, exercise as tolerated and avoid driving if drowsiness, sleepiness is present. The patient voiced understanding and was in agreement with the plan. PAF (paroxysmal atrial fibrillation) Preoperative clearance Pulmonary HTN Pulmonary hypertension Stopped smoking with greater than 30 pack year history Surgical History History of bilateral breast reduction surgery History of bladder surgery History of cholecystectomy History of colonoscopy History of coronary artery stent placement History of esophagogastroduodenoscopy (EGD) History of hysterectomy History of lumpectomy History of tonsillectomy Family History Father Hyperlipidemia Coronary artery disease Mother Cancer lung Other Diabetes Social History Smoking Status: Former smoker tobacco type: cigarettes packs per day: 1 second hand exposure: No alcohol intake: never substance use type: denies use current occupational status: retired Travel in the last 8 weeks: None household members: spouse and none housing: house marital status: current occupational exposures/hazards: No caffeine: Yes ROS Obtained: Yes All systems reviewed & no additional complaints except as documented Physical Exam General General appearance: alert Chest Chest inspection: Present normal inspection; Absent tenderness Respiratory Respiratory exam: Present normal lung sounds bilaterally and respiratory distress Cardiovascular Cardiovascular exam: Present regular rate Abdominal Exam Abdominal exam: Present soft; Absent distention or tenderness Back Exam Back 1 view image: 1. Ecchymosis tenderness and swelling Neurological Exam Neurological exam: Present alert Medical Decision Making Tam Inquiry Pt receiving controlled substance: No Vital Signs: 08/14/23 11:32 08/14/23 11:46 08/14/23 12:00 Temperature 98.2 F Temperature Source Oral Pulse Rate 89 84 Pulse Rate [Radial] 76 Respiratory Rate 18 Blood Pressure 160/71 H 141/69 H Blood Pressure [Right Arm] 160/71 H Blood Pressure Mean [Right Arm] 100 Blood Pressure Source [Right Arm] Automatic Cuff Blood Pressure Position [Right Arm] Sitting 02 Sat by Pulse Oximetry 98 99 99 Oxygen Delivery Method Room Air Room Air Room Air 08/14/23 13:00 08/14/23 13:30 08/14/23 14:00 Temperature Temperature Source Pulse Rate 76 89 92 H Pulse Rate [Radial] Respiratory Rate Blood Pressure 153/79 H 153/82 H 168/86 H Blood Pressure [Right Arm] Blood Pressure Mean [Right Arm] Blood Pressure Source [Right Arm] Blood Pressure Position [Right Arm] 02 Sat by Pulse Oximetry 100 98 100 Oxygen Delivery Method Room Air Room Air Room Air Lab Data Lab results reviewed: Yes I reviewed the patient's lab results. Lab Results 08/14/23 11:40: Urine Color Yellow, Urine Appearance Clear, Urine pH 7.0, Ur Specific [place] 1.025, Urine Protein Trace, Urine Glucose (UA) Negative, Urine Ketones Negative, Urine Blood 1+, Urine Nitrate Positive, Urine Bilirubin Negative, Urine Urobilinogen 1.0, Ur Leukocyte Esterase 3+ A, Urine RBC 3-5, Urine WBC 20-50, Ur Squamous Epith Cells 3-5, Urine Bacteria 2+ 08/14/23 12:05: WBC 4.4 L, RBC 3.88 L, Hgb 12.0 L, Hct 38.2, MCV 98.5, MCH 30.9, MCHC 31.4 L, RDW 13.7, Plt Count 161, MPV 9.1, Neut % (Auto) 68.4, Lymph % (Auto) 23.2, Esmeralda % (Auto) 6.5, Eos % (Auto) 1.6, Baso % (Auto) 0.3, Neut # (Auto) 3.0, Lymph # (Auto) 1.0, Esmeralda # (Auto) 0.3, Eos # (Auto) 0.1, Baso # (Auto) 0.0, Sodium 138, Potassium 5.6 H, Chloride 107, Carbon Dioxide 31 H, Anion Gap 5.6, BUN 15, Creatinine 0.70, Estimated Creat Clear 52, Estimated GFR 81, Est GFR ( Amer) 98, Glucose 93, Calcium 8.5, Total Bilirubin 1.5 H, AST 60 H, ALT 23, Alkaline Phosphatase 58, Total Protein 6.8, Albumin 4.0, Globulin 2.8, Albumin/Globulin Ratio 1.4 08/14/23 12:05 08/14/23 12:05 Orders (Tests/Meds): ED MEDICATIONS Generic Name Dose Route Start Last Admin Trade Name Freq PRN Reason Stop Dose Admin Sodium Chloride 10 ml 08/14/23 12:21 Sodium Chloride 0.9% 10ml Flush Syringe IV 09/13/23 12:20 NEEDED PRN Maintain IV Site Discontinued Medications Generic Name Dose Route Start Last Admin Trade Name Freq PRN Reason Stop Dose Admin Lactated Ringer's 500 mls @ 999 mls/hr 08/14/23 12:15 08/14/23 12:07 Lactated Ringer's 1000 Ml Bag IV 08/14/23 12:45 999 mls/hr .Q31M FABY Administration Iopamidol 75 ml 08/14/23 13:13 08/14/23 13:15 Iopamidol-370 (76%);100ml Bottle IV 08/14/23 13:14 75 ml ONCE ONE Administration Sodium Chloride 10 ml 08/14/23 13:13 08/14/23 13:15 Sodium Chloride 0.9% 10ml Syr (Rad Only) IV 08/14/23 13:14 10 ml ONCE ONE Administration ORDERS Category Date Time Status CT abdomen pelvis w con Stat Cat Scan 08/14/23 12:[address] chest w con Stat Cat Scan 08/14/23 12:[address] lumbar spine wo con Stat Cat Scan 08/14/23 12:[address] thoracic spine wo con Stat Cat Scan 08/14/23 12:03 Taken CBC w/Auto Diff [Complete Blood Count Auto Diff] Stat Lab 08/14/23 12:05 Completed CMP [Comprehensive Metabolic Panel] Stat Lab 08/14/23 12:05 Completed UA [Urinalysis and Microscopic] Stat Lab 08/14/23 11:40 Completed Urine Culture Stat Micro 08/14/23 11:40 Received Medical Decision Narrative: 78-year-old female presents today with significant pain tenderness and swelling over the mid thoracic region primarily in the paraspinal musculature but extending into the midline. There was some concern about possible hematuria unlikely that she has a significant renal injury but it is very close to her kidneys and will get contrasted CT scans of her chest abdomen pelvis as well as noncontrasted CT scans of the thoracic and lumbar spine to evaluate for possible bony injury. Differential primarily includes spine fracture and renal injury. Unlikely that she has any other organ dysfunction with this fall but given her age it is possible. No head or neck injury from a clinical standpoint we will not get a CT scan of her head or cervical spine. Reassessment 2:25 PM patient does have evidence of urinary tract infection. Given the fact that she has some back pain we will treat this for pyelonephritis but her back pain is likely secondary to the hematoma that is surrounding the region from the recent trauma. CT scans performed which I first interpreted also reviewed radiology read there are no acute abnormalities in the chest abdomen pelvis thoracic or lumbar spine. However there is a pulmonary incidental nodule that was found family has been made aware of this they will follow-up as outpatient. Lastly there is some mild hyperkalemia. She will need to follow-up close with her primary care doctor regarding this in the next 1 to 2 days. Critical Care Critical Care Time Critical Care Time: No
[2023-08-14] MEDS: LACTATED RINGERS 1000ML 500 ML 999 ML IV (12:07)
[2023-08-14 12:08] LABS: Microscopic, Urine URINE MICROSCOPIC (MICROSCOPIC)
[2023-08-14 12:10] LABS: Appearance,Urine CLEAR (Clear); Bilirubin,Urine Negative (Negative); Blood, Urine 1+ (Negative); Color,Urine YELLOW (Yellow); Glucose,Urine (UA) Negative (Negative); Ketones,Urine Negative (Negative); Leukocyte Esterase,Urine 3+ (Negative); Nitrate,Urine POSITIVE (Negative); Protein,Urine TRACE (Negative); Specific Gravity, Urine 1.025 (1.005-1.030)
[2023-08-14 12:19] LABS: Basophils % 0.3 % (0.1-2.0); Eosinophils # 0.1 K/mm3 (0.0-0.4); Eosinophils % 1.6 % (0.1-12.0); Hematocrit 38.2 % (37.0-47.0); Lymphocytes % 23.2 % (10-50); Mean Corpuscular HGB Conc 31.4 g/dL (31.8-35.4); Mean Corpuscular Hemoglobin 30.9 pg (27.0-31.2); Mean Corpuscular Volume 98.5 fl (81-99); Mean Platelet Volume 9.1 fl (7.4-10.4); Monocytes # 0.3 K/mm3 (0.1-1.0); Monocytes % 6.5 % (1.7-9.3); Neutrophils % 68.4 % (37.0-80.0); Platelet Count 161 K/mm3 (142-424); Red Blood Count 3.88 M/mm3 (4.20-5.40); Red Cell Distribution Width 13.7 % (11.5-17.5); White Blood Count 4.4 K/mm3 (4.8-10.8)
[2023-08-14 12:26] LABS: Chloride 107 mmol/L (98-107); Potassium 5.6 mmoL/L (3.5-5.1); Sodium 138 mmol/L (136-145)
[2023-08-14 12:28] LABS: Blood Urea Nitrogen 15 mg/dl (7-17); Creatinine Clearance Estimated 52 mL/min (50-200); Estimated Glomerular Filt Rate 81 ml/min (>60); GFR (African American) 98 ML/MIN (>60)
[2023-08-14 12:29] LABS: Alanine Aminotransferase 23 U/L (12-78); Albumin/Globulin Ratio 1.4 (1.1-1.8); Alkaline Phosphatase 58 U/L (38-126); Anion Gap 5.6 mEq/L (5-15); Aspartate Amino Transferase 60 U/L (14-36); Bilirubin,Total 1.5 mg/dl (0.2-1.3); Calcium 8.5 mg/dl (8.4-10.2); Carbon Dioxide 31 mmol/L (22.0-30.0); Globulin 2.8 g/dL (1.3-3.2); Glucose 93 mg/dl (74-100); Total Protein,Serum 6.8 g/dl (6.3-8.2)
--- NOTE | 2023-08-14 13:00 | PC.NURSE ---
PT TO CT
[2023-08-14] MEDS: SODIUM CHLORIDE 0.9% 10ML SYR (RAD ONLY) 10 ML IV (13:15)
[2023-08-14] MEDS: IOPAMIDOL-370 (76%);100ML BOTTLE 75 ML IV (13:15)
--- NOTE | 2023-08-14 13:19 | PC.NURSE ---
Returned from CT.
[2023-08-14 13:22] LABS: Bacteria,Urine 2+ /lpf; WBC,Urine 20-50 #/hpf (0-3)
--- NOTE | 2023-08-14 13:30 | PC.NURSE ---
ROUNDED ON PT, UPDATED ON CT READ. CALL LIGHT WITHIN REACH. AT BEDSIDE
--- NOTE | 2023-08-14 14:29 | PC.NURSE ---
DR CARABALLO AT BEDSIDE TO UPDATE PT AND
--- NOTE | 2023-08-16 21:32 | PC.NURSE ---
notified Dr ahn of urine culture. no new orders given. patient was prescribed cefdinir 300mg BID X 10 days @ discharge
== END 2023-08-14 14:30 | disposition home or self-care (01) ==
PROVIDERS: Emergency Provider Student in an Organized Health Care Education/Training Program; PCP Family Medicine
DX: S20.224A Contusion of middle back wall of thorax, initial encounter (principal); M54.9 Dorsalgia, unspecified; N39.0 Urinary tract infection, site not specified; E87.5 Hyperkalemia; R91.1 Solitary pulmonary nodule; I48.0 Paroxysmal atrial fibrillation; I25.10 Atherosclerotic heart disease of native coronary artery without angina pectoris; E11.9 Type 2 diabetes mellitus without complications; E78.5 Hyperlipidemia, unspecified; I10 Essential (primary) hypertension; E03.9 Hypothyroidism, unspecified; G47.33 Obstructive sleep apnea (adult) (pediatric); I27.20 Pulmonary hypertension, unspecified; Z87.891 Personal history of nicotine dependence
CPT/HCPCS: 71260; 72128; 72131; 74177; 80053; 81001; 85025; 87086; 99285; Q9967

== ENCOUNTER 2023-08-30 16:45 | Outpatient (CLI) | payer MEDICARE, BC, SELFPAY | END 2023-08-30 23:59 | PROVIDERS: PCP Family Medicine; Visit Provider Family Medicine | DX: R39.9 Unspecified symptoms and signs involving the genitourinary system (principal); B96.5 Pseudomonas (aeruginosa) (mallei) (pseudomallei) as the cause of diseases classified elsewhere; B95.2 Enterococcus as the cause of diseases classified elsewhere | CPT/HCPCS: 87086 ==

== ENCOUNTER 2023-09-02 14:00 | Outpatient (RCR) | payer MEDICARE, BC, SELFPAY ==
--- NOTE | 2023-07-11 16:47 | HMH.PTOPEV ---
PT Outpatient Evaluation Rehab PT Outpatient Evaluation Start: 07/11/23 15:05 Freq: Status: Active Protocol: Document 07/11/23 15:05 [email or web address] (Rec: 07/11/23 16:47 [email or web address] [id number]) E-signed By Eldon Peralta, PT Outpatient Therapy Subjective History Subjective History Pt.'s (caregiver) was present at the time of the initial evaluation this date( 07/11/23). Pt.'s caregiver answered majority of evaluation questions secondary to pt. being a poor historian d/t underlying condition. Pt. is a 77 year old female who presents to [facility] in [place] for the initial evaluation this date(07/11/23) w/ c/o chronic and constant RLE P!, stiffness, weakness of insidious onset 5 months ago that was exacerbated after most recent fall in May 2023. Pt. denies trauma as origin of current RLE complaint, however, pt. reports having at least a dozen falls in the last 6 months. Recent diagnostic imaging negative for a fracture w/ most recent fall per pt.'s caregiver report. Pt . reports RLE symptoms are at a 5/10 at rest that worsen to a 10/10 w/ activity including ambulation and standing. Pt. reports she is able to ambulate w/ rollator/FWW from the living room to the bathroom w/ stand by SPV, however, needs assistance from caregiver with sit<>stand and bed mobility. Pt. also vocalizes needing assistance w / bathing, dressing, and other transfers. Pt. reports this assistance has been needed for at least a year now. See chart for list of current medications and PMH. Pt. is currently being tested for FTD or frontotemporal dementia at this time. New diagnosis of cancer in past 12 No months? Chief Complaint Pain,Spasms,Stiff,Gives out/ Unstable,Paresthesia,Weakness Symptom Type Ache,Sharp,Dull,Stabbing, Numbness,Shooting Symptoms Relieved By Rest/Positioning Symptoms Aggravated By Standing,Physical Activity, Walking,Lifting Prior Functional Limitations None Current Functional Limitations Dressing,Standing,Recreation Activity,Walking,Balance Symptom Description Constant but Variable,Activity Dependent Level of pain today (0-10) 5 Pain scale - at its best (0-10) 4 Pain scale - at its worst (0-10) 10 Hip/Knee Eval Gait Observation General Gait Pattern Observation Antalgic Gait,Decrease Weight Bear (R),Decrease Stride Lngth (L) Assistive Device Assistive Devices Rolling / Wheeled Walker Palpation Tenderness right Knee Palpation Overall Comment grade 4 +TTP to RLE piriformis mm,grtr. trchntr. region Hip Palpation Findings Tenderness,Spasm,Trigger Point MMT Hip Flexion Strength Grade 3 Fair Hip Abduction Strength Grade 3 Fair Hip Adduction Strength Grade 3 Fair Hip Extension Strength Grade 3 Fair Gluteus Russel Strength Grade 3 Fair Hip External Rotation Strength Grade 3+ Fair+ Hip Internal Rotation Strength Grade 3+ Fair+ Knee Extension Strength Grade 3+ Fair+ Knee Flexion Strength Grade 3+ Fair+ Knee Extensors Muscle Tone Description Severe Hypertonicity Knee Flexors Muscle Tone Description Severe Hypertonicity ROM Hip Flexion w/Knee Extended Active Range 19 of Motion (degrees) Hip Flexion w/Knee Extended Passive 87 Range of Motion (degrees) Hip External Rotation Active Range of 12 Motion (degrees) Hip External Rotation Passive Range of 15 Motion (degrees) Hip ROM Limitations Soft Tissue Tightness,Pain, Muscle Weakness,Muscle Tone, Tightness on Right,Pain on Right Sensation bilateral LE Dermatome Level L1,L2,L3,L4,L5,S1 Comment light touch discrimination vocalized symmetrical in BLEs in above patterns Special Tests Hip Piriformis Test Positive Right Sciatic Nerve Tension Test Positive Right Outpatient Therapy Assessment Impairments Problems/Impairmments Palpation Tenderness,Impaired Range of Motion,Impaired Strength,Impaired Endurance, Impaired Transfers,Impaired Gait Pattern,Impaired Walking, Impaired Standing,Impaired Dressing,Impaired Shower/ Bathing,Impaired Squatting, Impaired Bending,Impaired Balance,Subjective C/O Pain, Impaired Self Care/Self Management Prognosis Rehab Potential Good Comment w/ HEP compliancy Clinical Impression Consistent with Diagnosis Yes Consistent with RLE sciatica, repeated falls Short Term Goals Number of Weeks 2 Decreased Palpation Tenderness Yes: grade 1-2 +TTP to TTP assessment above Decrease Subjective C/O Pain Yes: worse:10/24 Patient to be Ind w/ HEP Yes: pt. and caregiver Fdc Goals Number of Weeks 4-6 Decreased Palpation Tenderness Yes: grade 1 +TTP to TTP assessment above Increase Range of Motion Yes: 70% norms RLE hip Increase Strength Yes: 4/5 RLE MMT scores Improve Transfers Yes Improve Gait Pattern without Assistive Yes Device Increase Ability to Walk Yes Increase Ability to Stand Yes Increase Tinnetti Score Yes Improve LEFI Score Yes Decrease Subjective C/O Pain Yes: worse:2-3/10 Improve Self Care/Self Management Yes Patient to be Ind w/ Advanced HEP Yes Outpatient Therapy Plan of Care Treatment Plan May Include Therapeutic Exercise Including Home Yes Exercise Program Manual Therapy Techniques Yes Neuromuscular Re-education Yes Therapeutic Activities to Return to Yes Previous Functional/Work Level Gait Training Yes ADL/Self Care Education Yes Vasopneumatic Compression Pump Yes Massage Yes Eval/Re-Eval Yes Frequency Times per week 2 Duration Number of Weeks 4-6 Addendums This patient is a candidate for social No or vocational rehab? Patient/Guardian verbally acknowledges Yes understanding of treatment program and consents to further treatment? Patient/Guardian verbally acknowledges Yes understanding of diagnosis, prognosis and goals for treatment? Eval Complexity PT Charges 74639 - Moderate Complexity Shoulder/Elbow Eval Shoulder Objective Measurements Elbow Objective Measurements PHYSICIAN CERTIFICATION: I certify the specified therapy services for Lashaun Sagastume are required, authorized, and reviewed every 30 days.
== END 2023-09-11 14:36 | disposition home or self-care (01) ==
LOC: PT 14:00
PROVIDERS: PCP Family Medicine; Visit Provider Family Medicine
DX: R29.6 Repeated falls (principal); R29.898 Other symptoms and signs involving the musculoskeletal system; M54.32 Sciatica, left side
CPT/HCPCS: 97110; 97140; 97163; 97164; 97530; 97535

== ENCOUNTER 2023-09-04 10:31 | Outpatient (CLI) | payer MEDICARE, BC, SELFPAY ==
--- NOTE | 2023-09-04 10:31 | FL_ITS ---
FINAL REPORT CLINICAL HISTORY: FT 3:56 DAP 413.87 FINDINGS: MODIFIED BARIUM SWALLOW History: Dysphagia FINDINGS: Fluoroscopy was provided for the speech pathologist to evaluate the swallowing mechanism. The patient was given several different consistencies of barium while the swallow was visualized fluoroscopically. The report of the speech pathologist should be consulted prior to making dietary decisions. Fluoroscopy time: 3 minutes 56 seconds Fluoro dose: 413.87 DAP in uGym2 IMPRESSION: Modified barium swallow under fluoroscopic guidance. Please see the report of the speech pathologist for Dietary recommendations. Reviewed, Interpreted and Dictated by Ellis Mcconnell MD Transcribed by ALKA Leonard Authenticated and [facility]
--- NOTE | 2023-09-04 12:26 | HMH.SLMBS2 ---
Speech & Language Evaluation Speech/Language Mod Barium Swallow Start: 09/04/23 12:10 Freq: once Status: Complete Protocol: Document 09/04/23 12:10 [facility] (Rec: 09/04/23 12:26 [facility] [id number]) General Information General Current Food Consistancy Regular,Thin Liquids Dentition Good Dentition Oxygen Status Room Air Patient Orientation Person Ability to Follow Directions Fair Communication Ability Mild Impairment MBS Recommendations Diet Dietary Recommendations Regular,Mechanical Soft,Ground Meats,Chopped Meats,Kendrick Liquids,Honey Liquids Comment multiple diets recommended with pros/cons provided for each Treatment/Strategies Treatment Recommendation Compens. Strategy Educat. Strategy/Precaution Recommend Sitting Upright (90 deg), Double Swallow,Small Bites and Sips,Alternate Liquids/Solids Mod Barium Swallow Impressions Summary and Impressions Oral Phase Impression Moderate Impairment Oral Phase Summary Mild to moderate impairment of the oral preparatory and oral transit phases of the swallow . Ms. Sagastume was observed to orally withhold all administered bolus presentations in her mouth and required prompting to swallow . She was also observed to pocket solids within her oral cavity that required a puree/ pudding wash to clear. It is also to be noted after consecutive bites of MS or regular solid, she begins to fatigue. [employer] provided recommendations of regular solids with extra sauces and gravys for assistance in masticating and manipulating solids, avoiding tougher foods and fibrous meats OR mechanical soft solids as the safer option given its easier to chew. Pt and expressed understanding of these recommendations and [employer] reviewed handouts. Pharyngeal Phase Impression Severe Impairment Pharyngeal Phase Summary Moderate to severe impairment of the pharyngeal phase of the swallow. Pt is observed to have premature spillage, A/P spills, limited BOT retraction , and decreased epiglottic coverage 2' limited hyolaryngeal excursion. Zack aspiration of thins was observed with consecutive sips from an open cup, one large sip from an open cup, and straw sips. [employer] SU[employer] attempted to implement compensatory strategies and they were unsuccessful. [employer] SUPER[employer]OR then prompted to clear throat/cough to clear; pt was unable to produce a productive cough. [employer] SUPER[employer]OR then trialled NT via straws 2' pt's preference, and difficulty with lip seal around an open cup. Pt did better with NT when compared to thins, trace residual was noted in the vallecular space; residuals were cleared with a double hard swallow and/or pudding wash. [employer] also trialed HT with a straw, no residuals were noted with small sips. [employer] SUPER[employer] discussed pros/cons between NT and HT and provided educational handouts as well as sample kits for both diet recommendations to pt and her . No overt s/sxs of aspiration were noted with solid trials. Trace residuals observed at the valleculae. Throughout assessment, pt was noted to benefit from puree/ pudding wash. Speech/Language MBS Assessment/Goals/Plan Assessment Date of Evaluation: 09/04/23 Evaluation Type Initial Certification Assessment/Problems dysphagia per MD order. Does Patient Qualify for Service No Qualify/Failure Comment Based on clinical observations of the MBSS, given implementation of recommended and chosen diet by pt, no further skilled speech therapy services are warranted at this time. Recommendations PHYSICIAN CERTIFICATION: The specified therapy services are required, authorized, and reviewed every 30 days. Diet Recommendations regular with ext sauces/gravys or MS Liquid Type Recommendations Honey Consistency,Kendrick Consistency SL Swallow Guidelines Assist w/all meals,Alt bite w/ sip thru meal,Standard Aspiration Prec.,Chk mough for pocketing,Crush meds as allowed*,Eat at slow rate Crush Meds Small pills w/applesauce,Crush lge pills w/applesa Dysphagia Swallow Precautions/Strategies Sitting Upright (90 deg), Double Swallow,Small Bites and Sips,Alternate Liquids/Solids Place Food on Either side of Mouth Plan Pt/Guardian verbally ack understanding Yes of dx/prognosis/goals G -code Required No Education Instructions provided Discussed results of instrumental assessment (MBSS) with pt and , as well as provided a walkthrough of 2 diet recommendations with pros/cons of each and handouts & sample kits provided. They expressed understanding. Pt/Caregiver able to recall information Able to recall/restate Reinforcement needed No Mod Barium Swallow Setup Exam Setup Radiologist Shawn Jay Level of Consciousness Awake,Alert,Appropriate, Follows Commands Mod Barium Swallow-Lat View Textures Lateral View Food Presentation Thin Liquid via Cup,Kendrick Liquid via Cup,Kendrick Liquid via Straw,Honey Liquid via Cup ,Honey Liquid via Straw,Pureed Food- Thin,Mech. Soft Food- Regular,Barium Tablet,Regular Food,Pudding Comment MS: nutrigrain bar puree: applesauce Oral Phase Labial Closure Mild Impairment Bolus Formation Pooling L/R Moderate Impairment Bolus Formation under Tongue Minimal Impairment Bolus Formation Scattered Loss Moderate Impairment Mastication Rotary Chew Mild Impairment Mastication Munching Mild Impairment Mastication Lateralization Mild Impairment Lingual Movement Moderate Impairment Residue Clearing Moderate Impairment Pharyngeal Phase A/P Lingual Propulsion Spills Moderate Impairment Swallow Response Delay Severe Impairment Base of Tongue Moderate Impairment Epiglottic Coverage Moderate Impairment Laryngeal Elevation Mild Impairment Vallecular Retention Clearing Severe Impairment Pharyn. Wall Residue Clearing Minimal Impairment Piriform Sinus Retention Minimal Impairment Aspiration? Yes Degree of Aspiration Medium When aspirated During the swallow Consistencies Aspirated thin liquids Silent aspiration? Yes Mod Barium Swallow-AP View Performed Mod Barium Swallow A/P View Test Not Applicable/Performed PHYSICIAN CERTIFICATION: I certify the specified therapy services for Lashaun Sagastume are required, authorized, and reviewed every 30 days.
== END 2023-09-04 23:59 ==
LOC: RAD 10:31
PROVIDERS: PCP Family Medicine; Visit Provider Specialist
DX: R47.01 Aphasia (principal); R41.3 Other amnesia; R47.9 Unspecified speech disturbances
CPT/HCPCS: 70371; 92611

== ENCOUNTER 2023-09-08 12:20 | Observation (INO) | payer MEDICARE, BC, SELFPAY ==
[2023-09-08] VITALS (9 sets, daily range): BP systolic 137–225; BP diastolic 78–115; PULSE 89–95; RESP 16–22; TEMP 36.4–37.1; O2SAT 97–98; BMI 28.3; BMI 31.7
[2023-09-08 12:51] LABS: Basophils # 0.1 K/mm3 (0-0.2); Basophils % 1.4 % (0.1-2.0); Eosinophils # 0.1 K/mm3 (0.0-0.4); Eosinophils % 1.2 % (0.1-12.0); Hematocrit 43.2 % (37.0-47.0); Hemoglobin 13.7 g/dL (12.2-16.2); Lymphocytes % 21.7 % (10-50); Mean Corpuscular HGB Conc 31.7 g/dL (31.8-35.4); Mean Corpuscular Hemoglobin 31.1 pg (27.0-31.2); Mean Corpuscular Volume 98.1 fl (81-99); Mean Platelet Volume 9.1 fl (7.4-10.4); Monocytes # 0.2 K/mm3 (0.1-1.0); Monocytes % 4.4 % (1.7-9.3); Neutrophils # 3.4 K/mm3 (1.8-7.8); Neutrophils % 71.3 % (37.0-80.0); Platelet Count 171 K/mm3 (142-424); Red Blood Count 4.41 M/mm3 (4.20-5.40); Red Cell Distribution Width 13.7 % (11.5-17.5); White Blood Count 4.7 K/mm3 (4.8-10.8)
--- NOTE | 2023-09-08 12:55 | PC.NURSE ---
Dr. Elam at bedside
--- NOTE | 2023-09-08 12:59 | PC.NURSE ---
dr good at bedside
[2023-09-08 13:01] LABS: Chloride 103 mmol/L (98-107)
[2023-09-08 13:02] LABS: Potassium 4.1 mmoL/L (3.5-5.1); Sodium 141 mmol/L (136-145)
[2023-09-08 13:04] LABS: Alanine Aminotransferase 22 U/L (12-78); Alkaline Phosphatase 127 U/L (38-126); Aspartate Amino Transferase 35 U/L (14-36); Bilirubin,Total 0.9 mg/dl (0.2-1.3); Blood Urea Nitrogen 11 mg/dl (7-17); Creatinine Clearance Estimated 56 mL/min (50-200); Estimated Glomerular Filt Rate 81 ml/min (>60); GFR (African American) 98 ML/MIN (>60)
[2023-09-08 13:05] LABS: Albumin Level 4.5 g/dl (3.5-5.0); Albumin/Globulin Ratio 1.6 (1.1-1.8); Anion Gap 3.1 mEq/L (5-15); Calcium 9.9 mg/dl (8.4-10.2); Carbon Dioxide 39 mmol/L (22.0-30.0); Globulin 2.8 g/dL (1.3-3.2); Glucose 103 mg/dl (74-100); Total Protein,Serum 7.3 g/dl (6.3-8.2)
--- NOTE | 2023-09-08 13:08 | ED_ITS ---
Discharge Plan Disposition Patient Disposition: Admitted Chief Complaint: Weakness Prescriptions Prescriptions: No Action furosemide [Lasix] 20 mg tablet 20 mg PO DAILY fluticasone propionate [Allergy Relief (fluticasone)] 50 mcg/actuation spray,suspension 1 spray NS DAILY 90 Days Qty: 48 0RF memantine [Namenda] 10 mg tablet 10 mg PO BID MDD 20 mg 90 Days Qty: 180 3RF coenzyme Q10 [CoQ-10] 100 mg capsule 100 mg PO DAILY ashwagandha root extract 300 mg capsule PO ascorbate calcium (vitamin C) 500 mg tablet 500 mg PO DAILY lisinopril 2.5 mg tablet 2.5 mg PO DAILY Qty: 30 2RF escitalopram oxalate [Lexapro] 5 mg tablet 5 mg PO DAILY Qty: 30 2RF Hold Instructions: Doctor's Order albuterol sulfate 90 mcg/actuation HFA aerosol inhaler 2 inh IH QID PRN (Reason: shortness of breath or wheezing) Qty: 8.5 1RF levothyroxine [Synthroid] 150 mcg tablet 150 mcg PO .6 days a week 90 Days Qty: 90 0RF Rx Instructions: 150 mcg orally daily x6 days ,skip sat; Xarelto 20 mg tablet See Rx Instructions .ROUTE .COMPLEX Qty: 90 3RF Dose Instruction: TAKE 1 TABLET BY MOUTH EVERY DAY FOR BLOOD THINNER Rx Instructions: TAKE 1 TABLET BY MOUTH EVERY DAY FOR BLOOD THINNER lisinopril 5 mg tablet 5 mg PO DAILY Qty: 90 3RF Hold Instructions: Dose Change triamcinolone acetonide 0.1 % ointment See Rx Instructions .ROUTE .COMPLEX Qty: 30 2RF Dose Instruction: APPLY TOPICALLY DAILY Rx Instructions: APPLY TOPICALLY DAILY venlafaxine 150 mg tablet extended release 24hr See Rx Instructions .ROUTE .COMPLEX Qty: 90 1RF Dose Instruction: TAKE 1 TABLET BY MOUTH EVERY DAY Rx Instructions: TAKE 1 TABLET BY MOUTH EVERY DAY atenolol 50 mg tablet See Rx Instructions .ROUTE .COMPLEX Qty: 90 1RF Dose Instruction: TAKE 1 TABLET BY MOUTH EVERY DAY FOR HYPERTENSION Rx Instructions: TAKE 1 TABLET BY MOUTH EVERY DAY FOR HYPERTENSION atorvastatin 40 mg tablet See Rx Instructions .ROUTE .COMPLEX Qty: 90 1RF Dose Instruction: TAKE 1 TABLET BY MOUTH EVERY NIGHT AT BEDTIME FOR CHOLESTEROL Rx Instructions: TAKE 1 TABLET BY MOUTH EVERY NIGHT AT BEDTIME FOR CHOLESTEROL montelukast [Singulair] 10 mg tablet 10 mg PO DAILY 90 Days Qty: 90 1RF omeprazole 20 mg capsule,delayed release(DR/EC) 20 mg PO BID 90 Days Qty: 180 1RF Patient Comments: TAKE 1 CAPSULE BY MOUTH TWICE A DAY famotidine 20 mg tablet See Rx Instructions .ROUTE .COMPLEX Qty: 180 1RF Dose Instruction: TAKE 1 TABLET BY MOUTH TWICE A DAY FOR 90 DAYS Rx Instructions: TAKE 1 TABLET BY MOUTH TWICE A DAY FOR 90 DAYS nitrofurantoin monohyd/m-cryst [Macrobid] 100 mg capsule 100 mg PO Q12H Qty: 20 0RF Rx Instructions: must administer with a meal/food [id number] acid-lutein 1 EACH tablet,chewable 1 each PO DAILY calcium carbonate-vitamin D3 1 EACH tablet 1 each PO DAILY cefdinir 300 mg capsule 300 mg PO BID 10 Days Qty: 20 0RF Clinical Impressions Clinical Impression: Fronto-temporal dementia, Chronic lower limb pain, Inability to walk Discharge ED Provider: John Elam [facility] Adult HPI General Chief complaint: Weakness Stated complaint: Extra weakness, unable to stand Time Seen by Provider: 09/08/23 12:53 Mode of Arrival: EMS Source of Information: Patient, Spouse, EMS and Medical Record Limitations: Altered Mental Status Description of Symptoms (Recalled from ER Triage Doc. by RN): Pt brought in by EMS from home d/t concerns of extra weakness . Pt typically needs assistance to get up and walk with walker. However, today pt has not been able to get up. EMS reports pt is being treated for a UTI. She has a hx of dementia, HTN, 2 cardiac stents, afib, and diabetes. Pt c/o today of BLE pain causing her to not be able to walk. Per EMS, when they arrived pt's feet were blue and when we raised her legs they pinked up some . FS 106 with EMS. History of Present Illness HPI narrative: Patient is a 78-year-old female with a history of frontotemporal dementia with progressive lower extremity pain and weakness getting to the point where she can no longer stand or take care of herself at home. Her who is her primary caregiver also cannot manage to take care of her at the moment. She has chronic lower extremity edema and discoloration she has had numerous peripheral vascular evaluations including recent ABIs which were normal. Her pain is simply gotten to the point where she cannot handle it any longer. She and her are both agreeable and would like to be admitted for PT OT possible placement. Related Data Home Medications Medication Instructions Recorded Confirmed calcium carbonate 600 mg-vitamin 1 each PO DAILY Supplement 05/03/20 08/21/23 D3 10 mcg (400 unit) tablet multivit with min-folic 1 each PO DAILY Supplement 05/03/20 08/21/23 acid-lutein 400 mcg-250 mcg chewable tablet furosemide 20 mg tablet (Lasix) 20 mg PO DAILY Fluid 01/26/22 08/21/23 ascorbate calcium (vitamin C) 500 500 mg PO DAILY 07/17/23 08/21/23 mg tablet ashwagandha root extract 300 mg mg PO 07/17/23 08/21/23 capsule coenzyme Q10 100 mg capsule 100 mg PO DAILY 07/17/23 08/21/23 (CoQ-10) Previous Rx's Medication Instructions Recorded albuterol sulfate 90 mcg/actuation 2 inh inhalation QID PRN shortness 07/23/22 aerosol inhaler of breath or wheezing #8.5 grams levothyroxine 150 mcg tablet 150 mcg PO .6 days a week Thyroid 09/07/22 (Synthroid) 90 days #90 tabs rivaroxaban 20 mg tablet (Xarelto) See Rx Instructions .Route 10/15/22 .COMPLEX #90 tabs lisinopril 5 mg tablet 5 mg PO DAILY #90 tabs 11/21/22 triamcinolone acetonide 0.1 % See Rx Instructions .Route 01/20/23 topical ointment .COMPLEX #30 grams memantine 10 mg tablet (Namenda) 10 mg PO BID Dementia 90 days #180 01/24/23 tabs fluticasone propionate 50 1 spray intranasal DAILY Allergy 02/27/23 mcg/actuation nasal symptoms 90 days #48 grams spray,suspension (Allergy Relief (fluticasone)) atenolol 50 mg tablet See Rx Instructions .Route 07/26/23 .COMPLEX #90 tabs atorvastatin 40 mg tablet See Rx Instructions .Route 07/26/23 .COMPLEX #90 tabs famotidine 20 mg tablet See Rx Instructions .Route 07/26/23 .COMPLEX #180 tabs montelukast 10 mg tablet 10 mg PO DAILY 90 days #90 tabs 07/26/23 (Singulair) omeprazole 20 mg capsule,delayed 20 mg PO BID GERD 90 days #180 caps 07/26/23 release venlafaxine 150 mg tablet,extended See Rx Instructions .Route 07/26/23 release 24 hr .COMPLEX #90 tabs cefdinir 300 mg capsule 300 mg PO BID 10 days #20 caps 08/14/23 escitalopram oxalate 5 mg tablet 5 mg PO DAILY #30 tabs 08/21/23 (Lexapro) lisinopril 2.5 mg tablet 2.5 mg PO DAILY #30 tabs 08/21/23 nitrofurantoin 100 mg PO Q12H #20 caps 09/05/23 monohydrate/macrocrystals 100 mg capsule (Macrobid) Allergies Allergy/AdvReac Type Severity Reaction Status Date / Time house dust Allergy Verified 08/30/23 12:02 pollen extracts Allergy Verified 08/30/23 12:02 ondansetron AdvReac Verified 08/30/23 12:02 [From Zofran (as hydrochloride)] [facility] Disclaimer: The information contained in this section may have been updated after the patient was seen, as this information can be updated by other users. 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 Symptoms, cognitive deficits, expressive aphasia-progressively rapidly since to quit is not BiPAP longer than a year ago. Plan: Advised to resume BiPAP will see if qualify for new unit or has to wait for a replacement unit. Prescription was sent to [facility]. She will resume therapy with O2 as directed by her sap senior developer pending reevaluation. Consider formal titration and discontinuation of O2 if possible after checking compliance report on BiPAP The patient was advised to work on lifestyle modification including weight loss, diet, exercise as tolerated and avoid driving if drowsiness, sleepiness is present. The patient voiced understanding and was in agreement with the plan. Diabetes mellitus Hyperlipidemia Hypertensive disorder Surgical History History of lumpectomy History of tonsillectomy History of colonoscopy History of esophagogastroduodenoscopy (EGD) History of bladder surgery History of bilateral breast reduction surgery History of hysterectomy History of cholecystectomy History of coronary artery stent placement Family History Father Hyperlipidemia Coronary artery disease Mother Cancer lung Other Diabetes Social History Smoking Status: Former smoker tobacco type: cigarettes packs per day: 1 second hand exposure: No alcohol intake: never substance use type: denies use current occupational status: retired Travel in the last 8 weeks: None household members: spouse and none housing: house marital status: current occupational exposures/hazards: No caffeine: Yes ROS Obtained: Yes All systems reviewed & no additional complaints except as documented Physical Exam General General appearance: alert and in no apparent distress Respiratory Respiratory exam: Present normal lung sounds bilaterally Cardiovascular Cardiovascular exam: Present regular rate and normal rhythm Extremities Exam Extremities exam: Present other (Bilateral lower extremity edema and ecchymosis with cool extremities but there is brisk capillary refill no necrosis or ulcerations) Neurological Exam Neurological exam: Present alert and oriented X3 Medical Decision Making Tam Inquiry Pt receiving controlled substance: No Vital Signs: 09/08/23 12:20 09/08/23 12:36 09/08/23 13:00 Temperature 97.5 F L Temperature Source Oral Pulse Rate 92 H 94 H Pulse Rate [Right] 89 Respiratory Rate 20 18 18 Blood Pressure 188/83 H 186/95 H Blood Pressure [Right Arm] 173/86 H Blood Pressure Mean 118 125 Blood Pressure Mean [Right Arm] 115 Blood Pressure Source [Right Arm] Automatic Cuff 02 Sat by Pulse Oximetry 97 98 97 Oxygen Delivery Method Room Air Lab Data Lab results reviewed: Yes I reviewed the patient's lab results. Lab Results 09/08/23 12:15: WBC 4.7 L, RBC 4.41, Hgb 13.7, Hct 43.2, MCV 98.1, MCH 31.1, M CHC 31.7 L, RDW 13.7, Plt Count 171, MPV 9.1, Neut % (Auto) 71.3, Lymph % (Auto) 21.7, [place] % (Auto) 4.4, Eos % (Auto) 1.2, Baso % (Auto) 1.4, Neut # (Auto) 3.4, Lymph # (Auto) 1.0, [place] # (Auto) 0.2, Eos # (Auto) 0.1, Baso # (Auto) 0.1, Sodium 141, Potassium 4.1, Chloride 103, Carbon Dioxide 39 H, Anion Gap 3.1 L, BUN 11, Creatinine 0.70, Estimated Creat Clear 56, Estimated GFR 81, Est GFR ( Amer) 98, Glucose 103 H, Calcium 9.9, Phosphorus 4.1, Magnesium 1.9, Total Bilirubin 0.9, AST 35, ALT 22, Alkaline Phosphatase 127 H, Total Creatine Kinase 53, Troponin I < 0.01, Total Protein 7.3, Albumin 4.5, Globulin 2.8, Albumin/Globulin Ratio 1.6 09/08/23 13:40: Urine Color Yellow, Urine Appearance Clear, Urine pH 7.5, Ur Specific [place] 1.015, Urine Protein Negative, Urine Glucose (UA) Negative, Urine Ketones Negative, Urine Blood Trace-i, Urine Nitrate Negative, Urine Bilirubin Negative, Urine Urobilinogen 0.2, Ur Leukocyte Esterase Negative 09/08/23 12:15 09/08/23 12:15 Orders (Tests/Meds): ORDERS Category Date Time Status CK [Creatine Kinase] Stat Lab 09/08/23 12:15 Completed Complete Blood Count Auto Diff Stat Lab 09/08/23 12:15 Completed Comprehensive Metabolic Panel Stat Lab 09/08/23 12:15 Completed Magnesium Stat Lab 09/08/23 12:15 Completed Phosphorous Stat Lab 09/08/23 12:15 Completed Trop I [Troponin I] Stat Lab 09/08/23 12:15 Completed Troponin I Q3H Lab 09/08/23 15:45 Ordered Troponin I Q3H Lab 09/08/23 18:45 Ordered Urinalysis (cathed specimen) Stat Lab 09/08/23 13:40 Results Medical Decision Narrative: With above history and physical. She has a chronic slow progressive decline and performed simple dementia with bilateral lower extremity pain and swelling and her is no longer able to care for her at home. They are both agreeable to be admitted for PT OT and possible rehab versus jail placement. She had recent arterial vascular testing of her lower extremity which was normal from an [facility] standpoint. Additionally they would not like any major surgeries will not do CT angios to look for further peripheral vascular disease at this point. After her initial workup is complete we will have her admitted to hospital medicine. Reassessment 154 patient status remained stable labs unremarkable I spoke with Dr. Gee with hospital medicine who agreed to admit the patient for further evaluation and treatment as above. Critical Care Critical Care Time Critical Care Time: No
[2023-09-08 13:18] LABS: Troponin I < 0.01 ng/ml (0.00-0.034)
[2023-09-08 13:20] LABS: Creatine Kinase 53 U/L (30-135); Phosphorous 4.1 mg/dl (2.5-4.5)
[2023-09-08 13:21] LABS: Magnesium 1.9 mg/dl (1.6-2.3)
--- NOTE | 2023-09-08 13:23 | PC.NURSE ---
LUNCH TRAY SET-UP AT THIS TIME
--- NOTE | 2023-09-08 13:25 | ECG_ITS ---
APPROVED REPORT Exam: Resting ECG HR:91 bpm ECG Measurements Heart Rate 91 AXES QRSd 82 QRS -13 QT 330 T 3 QTc 379 Conclusion ATRIAL FLUTTER/TACHYCARDIA MODERATE ST DEPRESSION [0.05+ mV ST DEPRESSION] ABNORMAL ECG UNCONFIRMED REPORT Electronically signed by : Baljit Elam, 09/08/2023 14:24:08
[2023-09-08 13:46] LABS: Microscopic,Cath URINE MICROSCOPIC (MICROSCOPIC)
[2023-09-08 13:48] LABS: Appearance,Urine/Cath CLEAR (Clear); Bilirubin,Cath Negative (Negative); Blood, Urine/Cath TRACE-I (Negative); Color,Urine/Cath YELLOW (Yellow); Glucose,Urine/Cath (UA) Negative (Negative); Ketones,Urine/Cath Negative (Negative); Leukocyte Esterase,Cath Negative (Negative); Nitrate,Cath Negative (Negative); PH,Urine/Cath 7.5 (5.0-8.5); Protein,Urine/Cath Negative (Negative); Specific Gravity, Urine/Cath 1.015 (1.005-1.030); Urobilinogen,Cath 0.2 EU/dl (0.2)
[2023-09-08 14:02] LABS: Bacteria,Urine/Cath TRACE /lpf; RBC,Urine/Cath Occasional # /hpf (0-3); Squamous Epithelial Ur./Cath Occasional #/hpf (0-5)
--- NOTE | 2023-09-08 14:18 | PC.NURSE ---
ARTIST MODEL NOTIFIED OF ADMISSION
--- NOTE | 2023-09-08 14:19 | PC.NURSE ---
Gave report to Aren BECERRIL on med/surg. States no admission orders from hospitalist at this time. She will confirm orders with Dr. Gee.
[2023-09-08] MEDS: HEPARIN SODIUM 5,000 UNIT/ML VIAL 5000 UNIT SQ ×2 (14:58→22:26)
[2023-09-08] MEDS: ACETAMINOPHEN 325MG TAB 650 MG PO (14:58)
[2023-09-08] MEDS: LACTATED RINGERS 1000ML 1,000 ML 50 ML IV (14:59)
--- NOTE | 2023-09-08 16:30 | P.HP_ITS ---
History of Present Illness *Admission Date: 09/08/23 *Reason for visit:: Generalized weakness *History of present illness: Patient is a 78-year-old female with past medical history of frontotemporal dementia hypertension hyperlipidemia obstructive sleep apnea atrial fibrillation hypothyroidism, CAD, pulmonary hypertension who presented to hospital due to generalized weakness, inability to walk as well as inability to take care of herself. Normally patient caregiver is patient's however patient's has not been able to take care of her likely. Patient has not been able to walk at home, patient's brought her to the hospital due to generalized weakness. [facility] Disclaimer: The information contained in this section may have been updated after the patient was seen, as this information can be updated by other users. 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 Symptoms, cognitive deficits, expressive aphasia-progressively rapidly since to quit is not BiPAP longer than a year ago. Plan: Advised to resume BiPAP will see if qualify for new unit or has to wait for a replacement unit. Prescription was sent to [facility]. She will resume therapy with O2 as directed by her printer's devil pending reevaluation. Consider formal titration and discontinuation of O2 if possible after checking compliance report on BiPAP The patient was advised to work on lifestyle modification including weight loss, diet, exercise as tolerated and avoid driving if drowsiness, sleepiness is present. The patient voiced understanding and was in agreement with the plan. Diabetes mellitus Hyperlipidemia Hypertensive disorder Surgical History History of lumpectomy History of tonsillectomy History of colonoscopy History of esophagogastroduodenoscopy (EGD) History of bladder surgery History of bilateral breast reduction surgery History of hysterectomy History of cholecystectomy History of coronary artery stent placement Family History Father Hyperlipidemia Coronary artery disease Mother Cancer lung Other Diabetes Social History (Updated 09/08/23 @ 15:49 by Bonnie Forman RN) Smoking Status: Former smoker tobacco type: cigarettes packs per day: 1 second hand exposure: No alcohol intake: never substance use type: denies use current occupational status: retired Travel in the last 8 weeks: None household members: spouse and none housing: house marital status: current occupational exposures/hazards: No caffeine: Yes Review of Systems Review of Systems Review of systems (narrative): as per [facility] Meds Home Medications and Allergies Home Medications Medication Instructions Recorded Confirmed Type calcium carbonate 600 mg-vitamin 1 each PO DAILY Supplement 05/03/20 09/08/23 History D3 10 mcg (400 unit) tablet multivit with min-folic 1 each PO DAILY Supplement 05/03/20 09/08/23 History acid-lutein 400 mcg-250 mcg chewable tablet furosemide 20 mg tablet (Lasix) 20 mg PO DAILY Fluid 01/26/22 09/08/23 History albuterol sulfate 90 mcg/actuation 2 inh inhalation QID PRN shortness 07/23/22 09/08/23 Rx aerosol inhaler of breath or wheezing #8.5 grams levothyroxine 150 mcg tablet 150 mcg PO .6 days a week Thyroid 09/07/22 09/08/23 Rx (Synthroid) 90 days #90 tabs memantine 10 mg tablet (Namenda) 10 mg PO BID Dementia 90 days #180 01/24/23 09/08/23 Rx tabs fluticasone propionate 50 1 spray intranasal DAILY Allergy 02/27/23 09/08/23 Rx mcg/actuation nasal symptoms 90 days #48 grams spray,suspension (Allergy Relief (fluticasone)) ascorbate calcium (vitamin C) 500 500 mg PO DAILY 07/17/23 09/08/23 History mg tablet ashwagandha root extract 300 mg 300 mg PO DAILY 07/17/23 09/08/23 History capsule coenzyme Q10 100 mg capsule 100 mg PO DAILY 07/17/23 09/08/23 History (CoQ-10) montelukast 10 mg tablet 10 mg PO DAILY 90 days #90 tabs 07/26/23 09/08/23 Rx (Singulair) omeprazole 20 mg capsule,delayed 20 mg PO BID GERD 90 days #180 caps 07/26/23 09/08/23 Rx release lisinopril 2.5 mg tablet 2.5 mg PO DAILY #30 tabs 08/21/23 09/08/23 Rx nitrofurantoin 100 mg PO Q12H #20 caps 09/05/23 09/08/23 Rx monohydrate/macrocrystals 100 mg capsule (Macrobid) atenolol 50 mg tablet 50 mg PO DAILY 09/08/23 09/08/23 History atorvastatin 40 mg tablet 40 mg PO HS 09/08/23 09/08/23 History calcium carbonate 600 mg calcium 600 mg PO DAILY 09/08/23 09/08/23 History (1,500 mg) tablet (Calcium) famotidine 20 mg tablet 20 mg PO DAILY 09/08/23 09/08/23 History rivaroxaban 20 mg tablet (Xarelto) 20 mg PO DAILY 09/08/23 09/08/23 History venlafaxine 150 mg tablet,extended 150 mg PO DAILY 09/08/23 09/08/23 History release 24 hr New Prescriptions to Start Prescriptions: Allergies Allergy/AdvReac Type Severity Reaction Status Date / Time house dust Allergy Verified 08/30/23 12:02 pollen extracts Allergy Verified 08/30/23 12:02 ondansetron AdvReac Verified 08/30/23 12:02 [From Zofran (as hydrochloride)] Exam Data for Last 24 hours Vital signs and Labs for Last 24 Hours: Temp Pulse Resp BP Pulse Ox O2 Del Method 97.9 F 92 H 20 160/78 H 97 Room Air 09/08/23 14:33 09/08/23 14:33 09/08/23 14:33 09/08/23 14:33 09/08/23 13:00 09/08/23 15:10 Laboratory Results - last 24 hr 09/08/23 12:15: WBC 4.7 L, RBC 4.41, Hgb 13.7, Hct 43.2, MCV 98.1, MCH 31.1, MCHC 31.7 L, RDW 13.7, Plt Count 171, MPV 9.1, Neut % (Auto) 71.3, Lymph % (Auto) 21.7, [place] % (Auto) 4.4, Eos % (Auto) 1.2, Baso % (Auto) 1.4, Neut # (Auto) 3.4, Lymph # (Auto) 1.0, [place] # (Auto) 0.2, Eos # (Auto) 0.1, Baso # (Auto) 0.1, Sodium 141, Potassium 4.1, Chloride 103, Carbon Dioxide 39 H, Anion Gap 3.1 L, BUN 11, Creatinine 0.70, Estimated Creat Clear 56, Estimated GFR 81, Est GFR ( Amer) 98, Glucose 103 H, Calcium 9.9, Phosphorus 4.1, Magnesium 1.9, Total Bilirubin 0.9, AST 35, ALT 22, Alkaline Phosphatase 127 H, Total Creatine Kinase 53, Troponin I < 0.01, Total Protein 7.3, Albumin 4.5, Globulin 2.8, Albumin/Globulin Ratio 1.6 09/08/23 13:40: Urine Color Yellow, Urine Appearance Clear, Urine pH 7.5, Ur Specific [place] 1.015, Urine Protein Negative, Urine Glucose (UA) Negative, Urine Ketones Negative, Urine Blood Trace-i, Urine Nitrate Negative, Urine Bilirubin Negative, Urine Urobilinogen 0.2, Ur Leukocyte Esterase Negative, Urine RBC Occasional, Urine WBC None, Ur Squamous Epith Cells Occasional, Urine Bacteria Trace I & O for Last 24 hours: Intake & Output 09/05/23 09/06/23 09/07/23 09/08/23 23:59 23:59 23:59 23:59 Output Total 0 / 0 Balance 0 / 0 Weight 74.843 kg Constitutional Constitutional: no acute distress *Routine HEENT Exam Head: Present normocephalic Eye: Present EOMI and PERRL ENT: Present mucous membranes moist *Routine Neck Exam Neck: Present supple; Absent lymphadenopathy *Routine Respiratory Exam Respiratory: Present CTA bilaterally *Routine Cardiovascular Exam Cardiovascular: Present RRR *Routine Abdominal Exam Abdominal: Present soft and normoactive bowel sounds; Absent tenderness *Routine Rectal Exam Rectal:: deferred *Routine Genitalia Exam Genitalia:: deferred *Routine Extremities Exam Extremities: Absent cyanosis, clubbing or edema Comments: Rt foot is cold to touch and front foot looks light bluish, per patient this is not new *Routine Skin Exam Skin: Present warm; Absent rash *Routine Neurological Exam Neurological: Present alert and oriented X3 Assessment and Plan *Assessment and plan (1) Inability to walk: Status: Acute Category: Medical Code(s): R26.2 - Difficulty in walking, not elsewhere classified (2) Fronto-temporal dementia: Status: Acute Category: Medical Code(s): G31.09 - Other frontotemporal neurocognitive disorder; F02.80 - Dementia in other diseases classified elsewhere, unspecified severity, without behavioral disturbance, psychotic disturbance, mood disturbance, and anxiety (3) Acute hyperkalemia: Status: Acute Category: Medical Code(s): E87.5 - Hyperkalemia (4) UTI (urinary tract infection): Status: Acute Category: Medical Code(s): N39.0 - Urinary tract infection, site not specified (5) Urinary incontinence: Problem Comment: Trial with Detrol XL 2 mg was recommended as 07/17/2023 Status: Chronic Qualifiers: Urinary Incontinence type: stress incontinence Qualified Code(s): N39.3 - Stress incontinence (female) (male) Category: Medical Code(s): R32 - Unspecified urinary incontinence (6) Dementia: Status: Acute Category: Medical Code(s): F03.90 - Unspecified dementia, unspecified severity, without behavioral disturbance, psychotic disturbance, mood disturbance, and anxiety Plan Patient is a 78-year-old female with past medical history of frontotemporal dementia hypertension hyperlipidemia obstructive sleep apnea atrial fibrillation hypothyroidism, CAD, pulmonary hypertension who presented to hospital due to generalized weakness, inability to walk as well as inability to take care of herself. Normally patient caregiver is patient's however patient's has not been able to take care of her likely. Patient has not been able to walk at home, patient's brought her to the hospital due to generalized weakness. Assessment and plan Generalized weakness, difficulty walking Inability to perform activities of daily living Memory deficits History of frontotemporal dementia Fall precautions Consult PT/OT Consult case management for possible placement UA checked-negative for infectious etiology R foot pain, likely due to PAD - patient is on home xarelto, reportedly this is not a new finding - she has history of PAD Chronic medical conditions Obstructive sleep apnea Diabete Melitis Atrial fibrillation on Xarelto Pulmonary hypertension Hypertension Resume home xarelto ISS DVT - on xarelto
[2023-09-08 16:32] LABS: POC Glucose,Bedside 162 (70-110)
[2023-09-08] MEDS: humaLOG 100 UNITS/ML 3ML VIAL (SSI) SQ (16:39)
[2023-09-08] MEDS: HYDROCODONE/APAP 5/325 MG TABLET 1 TAB PO (16:40)
[2023-09-08 16:41] LABS: Troponin I < 0.01 ng/ml (0.00-0.034)
[2023-09-08 20:02] LABS: Troponin I < 0.01 ng/ml (0.00-0.034)
[2023-09-08] MEDS: PANTOPRAZOLE 40MG TABLET 40 MG PO (20:26)
[2023-09-08] MEDS: MEMANTINE 10MG TABLET 10 MG PO (20:26)
[2023-09-08] MEDS: ATORVASTATIN 40MG TABLET 40 MG PO (20:26)
[2023-09-08 20:51] LABS: POC Glucose,Bedside 86 (70-110)
[2023-09-09] VITALS: BP 156/74; PULSE 92; RESP 18; TEMP 36.9; O2SAT 99
--- NOTE | 2023-09-09 03:46 | PC.NURSE ---
Pt is alert to self and has moments of confusion. pt has wore CPAP for the most part of the night and tolerates it well. Pt has also tolerated fluids well. Pt weakness remains, pt denies pain and needs.
[2023-09-09 04:00] VITALS: BP 147/72; PULSE 90; RESP 20; TEMP 36.9; O2SAT 99; BMI 28.2
[2023-09-09 05:04] LABS: POC Glucose,Bedside 89 (70-110)
[2023-09-09] MEDS: HEPARIN SODIUM 5,000 UNIT/ML VIAL 5000 UNIT SQ ×3 (06:22→23:23)
[2023-09-09 06:45] LABS: Eosinophils # 0.1 K/mm3 (0.0-0.4); Lymphocytes # 1.5 K/mm3 (0.7-4.5); Monocytes # 0.2 K/mm3 (0.1-1.0); Red Cell Distribution Width 13.6 % (11.5-17.5)
[2023-09-09 06:58] LABS: Basophils % 0.9 % (0.1-2.0); Eosinophils % 1.9 % (0.1-12.0); Hematocrit 36.3 % (37.0-47.0); Lymphocytes % 40.3 % (10-50); Mean Corpuscular HGB Conc 31.7 g/dL (31.8-35.4); Mean Corpuscular Hemoglobin 30.9 pg (27.0-31.2); Mean Corpuscular Volume 97.3 fl (81-99); Monocytes % 5.5 % (1.7-9.3); Neutrophils # 1.9 K/mm3 (1.8-7.8); Neutrophils % 51.3 % (37.0-80.0); Platelet Count 155 K/mm3 (142-424); Red Blood Count 3.73 M/mm3 (4.20-5.40); White Blood Count 3.7 K/mm3 (4.8-10.8)
[2023-09-09 06:59] LABS: Hemoglobin 11.5 g/dL (12.2-16.2)
[2023-09-09 07:00] LABS: Anion Gap 5.8 mEq/L (5-15); Blood Urea Nitrogen 15 mg/dl (7-17); Calcium 8.7 mg/dl (8.4-10.2); Carbon Dioxide 32 mmol/L (22.0-30.0); Chloride 105 mmol/L (98-107); Creatinine Clearance Estimated 56 mL/min (50-200); Estimated Glomerular Filt Rate 81 ml/min (>60); GFR (African American) 98 ML/MIN (>60); Glucose 95 mg/dl (74-100); Potassium 3.8 mmoL/L (3.5-5.1); Sodium 139 mmol/L (136-145)
[2023-09-09 08:00] VITALS: BP 130/80; PULSE 90; RESP 18; TEMP 36.8; O2SAT 97
--- NOTE | 2023-09-09 08:21 | DIET.NUTRFU ---
Spoke to speech therapy, patient was seen on 09/03 and was recommended altered diet secondary to delay swallow requiring verbal cues. Speech therapy educated her caregiver on all diet recommendations, no signs of aspiration but holding solids/fluids in mouth. Spoke to nursing this AM feels she did well with regular/thin consistencies and feels patient should re-evaluated prior to downgrading diet to MSOFT ground, nectar thick which was the recommended diet on 09/03 with no straws and double swallow
--- NOTE | 2023-09-09 08:57 | HMH.PHAINT1 ---
Pharmacy Intervention Comments: Home medication list verified via outside pharmacy/office visit
[2023-09-09] MEDS: PANTOPRAZOLE 40MG TABLET 40 MG PO ×2 (09:09→21:01)
[2023-09-09] MEDS: VENLAFAXINE XR 75MG CAPSULE 150 MG PO (09:09)
[2023-09-09] MEDS: ASCORBIC ACID 500MG TAB 500 MG PO (09:09)
[2023-09-09] MEDS: ATENOLOL 50MG TABLET 50 MG PO (09:09)
[2023-09-09] MEDS: FUROSEMIDE 20MG TABLET 20 MG PO (09:09)
[2023-09-09] MEDS: MEMANTINE 10MG TABLET 10 MG PO ×2 (09:10→21:01)
[2023-09-09] MEDS: LISINOPRIL 2.5MG TABLET 2.5 MG PO (09:10)
[2023-09-09] MEDS: FAMOTIDINE 20MG TABLET 20 MG PO (09:10)
[2023-09-09] MEDS: HYDROCODONE/APAP 5/325 MG TABLET 1 TAB PO (09:10)
--- NOTE | 2023-09-09 09:29 | HMH.PTEV ---
Physical Therapy Evaluation Rehab PT IP Evaluation Start: 09/09/23 07:42 Freq: ONCE Status: Active Protocol: Document 09/09/23 09:22 DEE (Rec: 09/09/23 09:29 DEE [id number]) Subjective/History History History Per H&P: Patient is a 78-year-old female with past medical history of frontotemporal dementia hypertension hyperlipidemia obstructive sleep apnea atrial fibrillation hypothyroidism, CAD, pulmonary hypertension who presented to hospital due to generalized weakness, inability to walk as well as inability to take care of herself. Normally patient caregiver is patient's however patient's has not been able to take care of her likely. Patient has not been able to walk at home, patient's brought her to the hospital due to generalized weakness. Subjective Subjective PLOF per pt and pt's report: Needed 1-person assistance for bed mobility, ambulation, showering (with shower chair), transfers, and dressing. Used a RW and rollator. Lives on the first floor. Uses a transport chair when going out of house. reports pt has been getting weaker and need for assistance has increased. New diagnosis of cancer in past 12 No months? Rehab PT IP Eval Objective Appearance Patient Behavior Appropriate,Cooperative Patient Orientation Person,Situation Difficulty following instructions none Speech Pattern Soft-Spoken Ambulation Patient Able to Ambulate No Balance Ability to Arise Unable Sitting Balance Steady, safe Standing Balance Unsteady Transfers Bed Transfer Ability Maximum x 1 (75% assist) Sit to Stand Bed Transfer Ability Maximum x 2 (75% assist) Rehab PT IP prob,goals,plan Problems Date of Evaluation: 09/09/23 PT IP Problems Bed Mobility,Transfers,Gait, Balance,Safety Rehab Potential Rehab Potential Good Plan PT Intervention Plan Bed Mobility,Transfers,Gait, Balance,Safety,Therapeutic Exercise Other Intervention Plan 1-2 times PT Plan Frequency Daily Duration LOS Discharge Goals Bed Transfer Ability Moderate x 1 (50% assist) Sit to Stand Chair Transfer Ability Moderate x 2 (50% assist) Discharge Plan PT Discharge Plan Pt not safe to return home at this time d/t current level of functional mobility. PT recommending short-term rehabilitation stay upon d/c from [facility]. Pt required Max Ax2 to perform stand from raised bed. Pt would benefit from skilled PT while at [facility] to prevent further functional decline and maximize safety with mobility. Eval Complexity Eval Charge Codes 54551 - High Complexity PHYSICIAN CERTIFICATION: I certify the specified therapy services for Lashaun J Chambers are required, authorized, and reviewed every 30 days.
--- NOTE | 2023-09-09 10:02 | HMH.OTEV ---
OT Inpatient Evaluation Rehab OT IP Evaluation Start: 09/09/23 07:43 Freq: ONCE Status: Active Protocol: Document 09/09/23 09:53 CONSUELO (Rec: 09/09/23 10:01 CONSUELO [id number]) Rehab OT IP Assessment Subjective History Patient is a 78-year-old female with past medical history of frontotemporal dementia hypertension hyperlipidemia obstructive sleep apnea atrial fibrillation hypothyroidism, CAD, pulmonary hypertension who presented to hospital due to generalized weakness, inability to walk as well as inability to take care of herself. Normally patient caregiver is patient's however patient's has not been able to take care of her likely. Patient has not been able to walk at home, patient's brought her to the hospital due to generalized weakness. Patient lives with in 1 story home with no AURELIO. assist with all ADLs and fx'l mobility. reported patient used a RW for short distance. Patient has recieved HH servces in the past. For the past few weeks, patient has decline with verbalizing more pain in B LE with unable to stand. Subjective I can try. Instructed Patient on proper hand and foot to complete bed mobility from supine->sit @ EOB requiring Max A X2. Patient sat up @ EOB with SBA for ~1-2 mins. Patient requested to lay back down requiring Max A X2. Left patient sitting upright in bed with needs met at end of session. Objective Patient Orientation Name,Birthday Right Upper Extremity Gross ROM WFL Left Upper Extremity Gross ROM WFL Bed Mobility bed mobility - supine/sit Assist Level Maximum x 2 (75% assist) Rehab OT IP prob,goals,plan Problems Date of Evaluation: 09/09/23 OT IP Problems Bed Mobility,Transfers,Balance ,Self care,Safety Rehab Potential Rehab Potential Good Equipment Needs Assistive Devices Rolling / Wheeled Walker Plan OT intervention Plan Bed Mobility,Transfers,Balance ,Self care,Safety,Therapeutic Exercise OT Plan Frequency Daily Duration LOS Discharge Goals Bed Mobility Ability Assistance x1 Sit to Stand Chair Transfer Ability Maximum x 1 (75% assist) Discharge Plan OT Discharge Plan Recommend placement at this time for patient needing increase assistance x2. However if family is willing to assist , recommend HH services with / assistance. Eval Complexity Eval Charge Codes 15468 - Low Complexity PHYSICIAN CERTIFICATION: I certify the specified therapy services for Lashaun J Chambers are required, authorized, and reviewed every 30 days.
--- NOTE | 2023-09-09 10:10 | SW/DCPLANNER ---
Addendum entered by [facility] 09/11/23 08:31: Keke stated she can accept this patient today. Addendum entered by [facility] 09/10/23 15:34: Patient/ stated they are not Medicaid candidates and they would prefer to do private pay at [place]. I have updated Keke w/ [place]: she will follow up w/ me regarding referral. Addendum entered by [facility] 09/10/23 15:18: Maria T w/ [facility] will speak w/ this patient and regarding Medicaid application. Addendum entered by [facility] 09/10/23 12:21: After a lengthy discussion w/ patient, , Dr Chacko and myself the plan is for information to be faxed to [facility] and [place]. I will continue to follow up w/ both and patient/. Original Note: I spoke w/ patient and her regarding plans once medically stable for discharge. PT evaluated patient and recommended SNF level of care. I discussed discharge options w/ patient and including: private pay at [facility] due to OBS status vs home health services and private sitter. Patient/ are agreeable for information to be faxed to [facility] at this time but are undecided on discharge plans and request additional time to speak w/ each other. I will continue to follow up w/ patient and family and fax information to [facility].
--- NOTE | 2023-09-09 10:55 | HMH.SLDYSPHA ---
Speech & Language Evaluation Speech/Language Dysphagia Evaluation Start: 09/09/23 10:33 Freq: ONCE Status: Active Protocol: Document 09/09/23 10:33 TAHIRA (Rec: 09/09/23 10:54 TAHIRA [id number]) Dysphagia Assess/Goals/Plan Assessment Date of Evaluation: 09/09/23 Evaluation Type Initial Certification Assessment/Problems improvement from previous swallow assessment per MD order Does Patient Qualify for Service Yes Qualify/Failure Comment Based on clinical observations made during CSE, pt would benefit from skilled speech therapy services to monitor diet tolerance 2' altering mental status. Recommendations PHYSICIAN CERTIFICATION: The specified therapy services are required, authorized, and reviewed every 30 days. Pt will be seen # times/week 3 for # weeks 4 Diet Recommendations Normal Liquid Type Recommendations Normal/Thin SL Swallow Guidelines Alt bite w/sip thru meal, Standard Aspiration Prec. Dysphagia Swallow Precautions/Strategies Double Swallow,Small Bites and Sips,Alternate Liquids/Solids Plan Pt/Guardian verbally ack understanding Yes of dx/prognosis/goals G -code Required No Education Instructions provided HOT ROLL INSPECTOR discussed improvements in mental status altering CSE results and new recommendations based on observations made. HOT ROLL INSPECTOR plans to f/u for diet tolerance. Nursing, care management, as well as patient and her all expressed understanding. Pt/Caregiver able to recall information Able to recall/restate Reinforcement needed No Speech & Language HPI History Present Illness Description of Patient Problem Patient is a 78-year-old female with past medical history of frontotemporal dementia hypertension hyperlipidemia obstructive sleep apnea atrial fibrillation hypothyroidism, CAD, pulmonary hypertension who presented to hospital due to generalized weakness, inability to walk as well as inability to take care of herself. Pt/Caregiver Concerns Pt recently received MBSS on 09/04/23 with recommendations of NT liquids and regular or MS solids with education for both. Rehab Services Assessed Speech therapy Language Primary Language [place] General Information General Current Food Consistancy Regular,Thin Liquids Dentition Good Dentition Oxygen Status Room Air Patient Orientation Person Ability to Follow Directions Good Communication Ability Mild Impairment Dysphagia:Food Presentation Evaluation Food Type Pureed,Mechanical Soft,Regular ,Liquid,Pudding Normal/Thin Liquid Response Delayed swallow [place] Consistency Liquid Response Delayed swallow Dysphagia Evaluation Regular Food Residual on tongue Behavior Response Dysphagia Evaluation Summary Pt was seen sitting upright in her bed this AM and was A&O to her name and birthday; this is a notable improvement from MBSS performed on 09/04/23 in which pt was unable to provide this information. She was also noted to be more alert and participated in conversation discussing with HOT ROLL INSPECTOR that her stomach was upset . was present at bedside. Bolus trials administered included: thins ( ice chips, spoonfuls of water, open cup/straw sip, two consecutive sips from open cup /straw), NT (open cup/straw sip, two consecutive sips from open cup/straw), pudding, puree (applesauce), MS solid ( nutrigrain bar), and regular solid (arnoldo cracker.) No overt s/sxs of aspiration were noted throughout CSE. Pt exhibits audible swallow with all liquid consistencies. Trialed solids x5 2' known fatigue. Latency time of mastication and manipulation of bolus became longer with each presented trial of both MS and regular solids. Pt exhibits with residuals in oral cavity with regular solids; they are able to be cleared with presentation of puree/pudding wash. HOT ROLL INSPECTOR discussed diet options 2' fatigue and residuals in oral cavity and pt/pt's wish to trial regular solids and thins at this time, even with known previous aspiration from MBSS 2' improvements during CSE. HOT ROLL INSPECTOR plans to f/u. Pt is recommended to be placed on regulars and thins with implementation of extra sauces /gravys with delisa bites/sips and use of a puree/pudding wash after every 2-3 bites to clear any oral residue found. Stroke Dysphagia Assessment PHYSICIAN CERTIFICATION: I certify the specified therapy services for Lashaun Sagastume are required, authorized, and reviewed every 30 days.
--- NOTE | 2023-09-09 11:00 | EXP.ACUTE.PN ---
Subjective *Date: 09/09/23 *Time: 17:59 Interval history: Still quite weak. Complaining of pain in her legs. PT and case management evaluating patient today. Tolerating p.o. intake. Labs stable. On room air. No nausea or vomiting. No chest pain or shortness of breath. Medical Exam Vital signs and Labs for Last 24 Hours: Vital Signs Temp Pulse Pulse Resp BP BP Pulse Ox 09/09/23 10:33 09/09/23 08:00 98.3 F 90 18 130/80 97 09/09/23 06:42 09/09/23 05:00 09/09/23 04:00 98.4 F 90 20 147/72 H 99 09/09/23 03:00 09/09/23 01:00 09/09/23 00:00 98.5 F 92 H 18 156/74 H 99 09/08/23 23:00 09/08/23 21:00 09/08/23 20:00 09/08/23 20:00 98.8 F 95 H 16 137/81 98 09/08/23 18:38 09/08/23 16:55 09/08/23 15:10 09/08/23 14:33 97.9 F 92 H 20 160/78 H 09/08/23 14:30 92 H 20 160/78 H 09/08/23 14:15 18 09/08/23 13:57 19 215/115 H 09/08/23 13:31 92 H 22 225/108 H 09/08/23 13:00 94 H 18 186/95 H 97 09/08/23 12:36 92 H 18 188/83 H 98 09/08/23 12:20 97.5 F L 89 20 173/86 H 97 O2 Del Method 09/09/23 10:33 Room Air 09/09/23 08:00 Room Air 09/09/23 06:42 Room Air 09/09/23 05:00 Room Air 09/09/23 04:00 Room Air 09/09/23 03:00 Room Air 09/09/23 01:00 Room Air 09/09/23 00:00 CPAP 09/08/23 23:00 CPAP 09/08/23 21:00 CPAP 09/08/23 20:00 CPAP 09/08/23 20:00 Room Air 09/08/23 18:38 Room Air 09/08/23 16:55 Room Air 09/08/23 15:10 Room Air 09/08/23 14:33 Room Air 09/08/23 14:30 09/08/23 14:15 09/08/23 13:57 09/08/23 13:31 09/08/23 13:00 09/08/23 12:36 09/08/23 12:20 Room Air Intake and Output 09/08/23 09/09/23 09/09/23 23:59 07:59 15:59 Intake Total 490 / 996 506 / 996 Output Total 0 / 0 600 / 1650 1050 / 1650 Balance 0 / 490 -110 / -654 -544 / -654 Intake: Intake, Oral Amount 240 / 746 506 / 746 Intake, Total IV Amount 250 / 250 Lactated Ringers 1000ML 1,000 250 / 250 ml @ 50 mls/hr IV .Q20H [facility] Rx# :[id number] Output: Output, Urine Amount 0 / 0 600 / 1650 1050 / 1650 Other: Number of Unmeasured Voids 0 Weight 74.899 kg Patient Weight 09/09/23 23:59 Weight 74.899 kg Laboratory Results - last 24 hr 09/08/23 12:15: WBC 4.7 L, RBC 4.41, Hgb 13.7, Hct 43.2, MCV 98.1, MCH 31.1, MCHC 31.7 L, RDW 13.7, Plt Count 171, MPV 9.1, Neut % (Auto) 71.3, Lymph % (Auto) 21.7, [place] % (Auto) 4.4, Eos % (Auto) 1.2, Baso % (Auto) 1.4, Neut # (Auto) 3.4, Lymph # (Auto) 1.0, [place] # (Auto) 0.2, Eos # (Auto) 0.1, Baso # (Auto) 0.1, Sodium 141, Potassium 4.1, Chloride 103, Carbon Dioxide 39 H, Anion Gap 3.1 L, BUN 11, Creatinine 0.70, Estimated Creat Clear 56, Estimated GFR 81, Est GFR ( Amer) 98, Glucose 103 H, Calcium 9.9, Phosphorus 4.1, Magnesium 1.9, Total Bilirubin 0.9, AST 35, ALT 22, Alkaline Phosphatase 127 H, Total Creatine Kinase 53, Troponin I < 0.01, Total Protein 7.3, Albumin 4.5, Globulin 2.8, Albumin/Globulin Ratio 1.6 09/08/23 13:40: Urine Color Yellow, Urine Appearance Clear, Urine pH 7.5, Ur Specific [place] 1.015, Urine Protein Negative, Urine Glucose (UA) Negative, Urine Ketones Negative, Urine Blood Trace-i, Urine Nitrate Negative, Urine Bilirubin Negative, Urine Urobilinogen 0.2, Ur Leukocyte Esterase Negative, Urine RBC Occasional, Urine WBC None, Ur Squamous Epith Cells Occasional, Urine Bacteria Trace 09/08/23 15:55: Troponin I < 0.01 09/08/23 16:23: POC Glucose 162 H 09/08/23 18:00: Troponin I < 0.01 09/08/23 20:24: POC Glucose 86 09/09/23 04:55: POC Glucose 89 09/09/23 05:45: WBC 3.7 L, RBC 3.73 L, Hgb 11.5 L D, Hct 36.3 L, MCV 97.3, MCH 30.9, MCHC 31.7 L, RDW 13.6, Plt Count 155, MPV 9.0, Neut % (Auto) 51.3, Lymph % (Auto) 40.3, [place] % (Auto) 5.5, Eos % (Auto) 1.9, Baso % (Auto) 0.9, Neut # (Auto) 1.9, Lymph # (Auto) 1.5, [place] # (Auto) 0.2, Eos # (Auto) 0.1, Baso # (Auto) 0.0, Sodium 139, Potassium 3.8, Chloride 105, Carbon Dioxide 32 H, Anion Gap 5.8, BUN 15 D, Creatinine 0.70, Estimated Creat Clear 56, Estimated GFR 81, Est GFR ( Amer) 98, Glucose 95, Calcium 8.7 I & O for Labs for Last 24 Hours: Intake & Output 09/06/23 09/07/23 09/08/23 09/09/23 23:59 23:59 23:59 23:59 Intake Total 996 / 996 Output Total 0 / 0 1650 / 1650 Balance 0 / 490 -654 / -654 Weight 74.843 kg 74.899 kg Constitutional: Present no acute distress, average body habitus, chronically ill appearing and cooperative Head: Present atraumatic and normocephalic ENT: Present normal exam Neck: Present normal inspection Respiratory: Present normal respiratory effort; Absent rhonchi, wheezes or crackles Cardiac: Present Reg Rate and Rhythm GI: Present soft and normal bowel sounds; Absent distention or tenderness Extremities: Present normal inspection, full ROM and tenderness (in bilateral thighs) Skin: Present intact; Absent erythema Neuro: Present Grossly Intact, alert, awake and moves all extremities (Globally weak) Comment:: Oriented to self and place; tremor, slow to respond to questions. Voice shaky. Assessment and Plan *Assessment and plan (1) Fronto-temporal dementia: Status: Acute Category: Medical Code(s): G31.09 - Other frontotemporal neurocognitive disorder; F02.80 - Dementia in other diseases classified elsewhere, unspecified severity, without behavioral disturbance, psychotic disturbance, mood disturbance, and anxiety (2) Inability to walk: Status: Acute Category: Medical Code(s): R26.2 - Difficulty in walking, not elsewhere classified (3) Acute hyperkalemia: Status: Acute Category: Medical Code(s): E87.5 - Hyperkalemia (4) UTI (urinary tract infection): Status: Acute Category: Medical Code(s): N39.0 - Urinary tract infection, site not specified (5) Urinary incontinence: Problem Comment: Trial with Detrol XL 2 mg was recommended as 07/17/2023 Status: Chronic Qualifiers: Urinary Incontinence type: stress incontinence Qualified Code(s): N39.3 - Stress incontinence (female) (male) Category: Medical Code(s): R32 - Unspecified urinary incontinence (6) Dementia: Status: Acute Category: Medical Code(s): F03.90 - Unspecified dementia, unspecified severity, without behavioral disturbance, psychotic disturbance, mood disturbance, and anxiety Plan Patient is a 78-year-old female with past medical history of frontotemporal dementia hypertension hyperlipidemia obstructive sleep apnea atrial fibrillation hypothyroidism, CAD, pulmonary hypertension who presented to hospital due to generalized weakness, inability to walk as well as inability to take care of herself. Normally patient caregiver is patient's however patient's has not been able to take care of her likely. Patient has not been able to walk at home, patient's brought her to the hospital due to generalized weakness. Admitted to medicine for further management. Therapy evaluating. Problems addressed as follows: Generalized weakness, difficulty walking Inability to perform activities of daily living Memory deficits History of frontotemporal dementia -Therapy evaluating patient today. Case management consulted to assist with dispo plan -Continue fall precautions -Still having pain in legs. R foot pain, likely due to PAD - patient is on home xarelto, reportedly this is not a new finding White cell count normal at 3.7, kidney function normal with BUN at 15 and creatinine 0.7. Repeat labs with CBC, CMP, magnesium ordered for the morning. Chronic medical conditions Obstructive sleep apnea Diabete Melitis Atrial fibrillation on Xarelto Pulmonary hypertension Hypertension Full code Modified diet xarelto
[2023-09-09 11:52] LABS: POC Glucose,Bedside 113 (70-110)
[2023-09-09 12:00] VITALS: BP 154/70; PULSE 72; RESP 18; TEMP 36.8; O2SAT 94
[2023-09-09] MEDS: LACTATED RINGERS 1000ML 1,000 ML 50 ML IV (12:13)
[2023-09-09 15:41] VITALS: BMI 28.1
[2023-09-09 16:00] VITALS: BP 139/58; PULSE 66; RESP 18; TEMP 36.8; O2SAT 98
[2023-09-09 16:42] LABS: POC Glucose,Bedside 101 (70-110)
[2023-09-09] MEDS: RIVAROXABAN 10MG TABLET 20 MG PO (18:17)
--- NOTE | 2023-09-09 18:20 | PC.NURSE ---
Patient has been a&ox4 this shift, she has had some slow to answer periods but can answer appropriately. Pt is tolerating thin liquids and regular food at this time.
[2023-09-09 20:00] VITALS: BP 126/61; PULSE 74; RESP 16; TEMP 36.5; O2SAT 95
[2023-09-09] MEDS: MONTELUKAST SODIUM 10MG TAB 10 MG PO (21:01)
[2023-09-09] MEDS: ATORVASTATIN 40MG TABLET 40 MG PO (21:01)
[2023-09-09 21:30] LABS: POC Glucose,Bedside 110 (70-110)
[2023-09-10] VITALS: BP 133/67; PULSE 68; RESP 16; TEMP 36.5; O2SAT 100
[2023-09-10 04:00] VITALS: BP 144/75; PULSE 89; RESP 16; TEMP 36.7; O2SAT 97; BMI 27.5
[2023-09-10 06:07] LABS: POC Glucose,Bedside 95 (70-110)
[2023-09-10] MEDS: HEPARIN SODIUM 5,000 UNIT/ML VIAL 5000 UNIT SQ ×3 (06:31→23:10)
[2023-09-10] MEDS: LEVOTHYROXINE 150MCG (0.15MG)TAB 150 MCG PO (06:31)
[2023-09-10 07:18] LABS: Basophils % 0.7 % (0.1-2.0); Eosinophils # 0.1 K/mm3 (0.0-0.4); Eosinophils % 2.1 % (0.1-12.0); Hematocrit 37.6 % (37.0-47.0); Lymphocytes # 1.5 K/mm3 (0.7-4.5); Mean Corpuscular Hemoglobin 31.1 pg (27.0-31.2); Mean Corpuscular Volume 97.2 fl (81-99); Mean Platelet Volume 9.1 fl (7.4-10.4); Monocytes # 0.3 K/mm3 (0.1-1.0); Monocytes % 5.4 % (1.7-9.3); Neutrophils # 3.3 K/mm3 (1.8-7.8); Neutrophils % 63.7 % (37.0-80.0); Platelet Count 150 K/mm3 (142-424); Red Blood Count 3.86 M/mm3 (4.20-5.40); Red Cell Distribution Width 13.6 % (11.5-17.5); White Blood Count 5.2 K/mm3 (4.8-10.8)
[2023-09-10 07:59] LABS: Anion Gap 4.6 mEq/L (5-15); Blood Urea Nitrogen 14 mg/dl (7-17); Calcium 8.8 mg/dl (8.4-10.2); Carbon Dioxide 33 mmol/L (22.0-30.0); Chloride 103 mmol/L (98-107); Creatinine Clearance Estimated 54 mL/min (50-200); Estimated Glomerular Filt Rate 81 ml/min (>60); GFR (African American) 98 ML/MIN (>60); Glucose 99 mg/dl (74-100); Potassium 3.6 mmoL/L (3.5-5.1); Sodium 137 mmol/L (136-145)
[2023-09-10 08:00] VITALS: BP 159/70; PULSE 91; RESP 18; TEMP 36.7; O2SAT 93
[2023-09-10] MEDS: PANTOPRAZOLE 40MG TABLET 40 MG PO ×2 (08:31→20:34)
[2023-09-10] MEDS: VENLAFAXINE XR 75MG CAPSULE 150 MG PO (08:32)
[2023-09-10] MEDS: ATENOLOL 50MG TABLET 50 MG PO (08:32)
[2023-09-10] MEDS: FUROSEMIDE 20MG TABLET 20 MG PO (08:32)
[2023-09-10] MEDS: FAMOTIDINE 20MG TABLET 20 MG PO (08:32)
[2023-09-10] MEDS: LISINOPRIL 2.5MG TABLET 2.5 MG PO (08:32)
[2023-09-10] MEDS: MEMANTINE 10MG TABLET 10 MG PO ×2 (08:32→20:34)
[2023-09-10] MEDS: ASCORBIC ACID 500MG TAB 500 MG PO (08:32)
[2023-09-10] MEDS: ACETAMINOPHEN 325MG TAB 650 MG PO (08:33)
--- NOTE | 2023-09-10 09:24 | PC.NURSE ---
Rounded on patient, she denies any needs or concerns at this time. Family member at bedside.
[2023-09-10 10:28] LABS: POC Glucose,Bedside 113 (70-110)
[2023-09-10 12:00] VITALS: BP 143/71; PULSE 68; RESP 18; TEMP 36.8; O2SAT 96
--- NOTE | 2023-09-10 14:12 | EXP.ACUTE.PN ---
Subjective *Date: 09/10/23 *Time: 14:12 Interval history: Patient globally weak. No fever overnight. Labs stable this morning. Tolerating p.o. intake. Extensive discussion at bedside with and case management. See advance care planning note for full details. Patient on room air. Medical Exam Vital signs and Labs for Last 24 Hours: Vital Signs Temp Pulse Resp BP Pulse Ox O2 Del Method O2 Flow Rate 09/10/23 13:00 Room Air 09/10/23 12:00 98.3 F 68 18 143/71 H 96 Room Air 09/10/23 11:00 Room Air 09/10/23 09:00 Room Air 09/10/23 08:00 Room Air 09/10/23 08:00 98.0 F 91 H 18 159/70 H 93 L Room Air 09/10/23 06:21 Room Air 09/10/23 05:00 Room Air 09/10/23 04:00 98.1 F 89 16 144/75 H 97 Room Air 09/10/23 02:26 Room Air 09/10/23 01:00 Room Air 09/10/23 00:00 97.7 F 68 16 133/67 100 BiPAP 09/09/23 22:45 CPAP 09/09/23 21:00 CPAP 2 09/09/23 20:00 Room Air, CPAP 09/09/23 20:00 97.7 F 74 16 126/61 95 Room Air 09/09/23 16:00 98.2 F 66 18 139/58 L 98 Room Air Intake and Output 09/09/23 09/10/23 09/10/23 23:59 07:59 15:59 Intake Total 470 / 1936 660 / 990 330 / 990 Output Total 500 / 3200 1300 / 2000 700 / 2000 Balance -30 / -1264 -640 / -1010 -370 / -1010 Intake: Intake, Oral Amount 470 / 1686 60 / 390 330 / 390 Intake, Total IV Amount 600 / 600 Lactated Ringers 1000ML 1,000 600 / 600 ml @ 50 mls/hr IV .Q20H [facility] Rx# :[id number] Output: Output, Urine Amount 500 / 3200 1300 / 2000 700 / 2000 Other: Number of Unmeasured Voids 1 0 0 Weight 73.21 kg Patient Weight 09/10/23 23:59 Weight 73.21 kg Laboratory Results - last 24 hr 09/09/23 16:30: POC Glucose 101 09/09/23 21:03: POC Glucose 110 09/10/23 06:00: POC Glucose 95 09/10/23 06:27: WBC 5.2 D, RBC 3.86 L, Hgb 12.0 L, Hct 37.6, MCV 97.2, MCH 31.1, MCHC 32.0, RDW 13.6, Plt Count 150, MPV 9.1, Neut % (Auto) 63.7, Lymph % (Auto) 28.0, [place] % (Auto) 5.4, Eos % (Auto) 2.1, Baso % (Auto) 0.7, Neut # (Auto) 3.3, Lymph # (Auto) 1.5, [place] # (Auto) 0.3, Eos # (Auto) 0.1, Baso # (Auto) 0.0, Sodium 137, Potassium 3.6, Chloride 103, Carbon Dioxide 33 H, Anion Gap 4.6 L, BUN 14, Creatinine 0.70, Estimated Creat Clear 54, Estimated GFR 81, Est GFR ( Amer) 98, Glucose 99, Calcium 8.8 09/10/23 10:17: POC Glucose 113 H I & O for Labs for Last 24 Hours: Intake & Output 09/07/23 09/08/23 09/09/23 09/10/23 23:59 23:59 23:59 23:59 Intake Total 1936 / 1936 990 / 990 Output Total 0 / 0 2900 / 3200 1999 / 1999 Balance 0 / 490 -964 / -1264 -1010 / -1010 Weight 74.843 kg 74.8 kg 73.21 kg Constitutional: Present no acute distress, average body habitus, chronically ill appearing and cooperative Head: Present atraumatic and normocephalic ENT: Present normal exam Neck: Present normal inspection Respiratory: Present normal respiratory effort; Absent rhonchi, wheezes or crackles Cardiac: Present Reg Rate and Rhythm GI: Present soft and normal bowel sounds; Absent distention or tenderness Extremities: Present normal inspection, full ROM and tenderness (in bilateral thighs) Skin: Present intact; Absent erythema Neuro: Present Grossly Intact, alert, awake and moves all extremities (Globally weak) Comment:: Oriented to self and place; tremor, slow to respond to questions. Voice shaky. Assessment and Plan *Assessment and plan (1) Fronto-temporal dementia: Status: Acute Category: Medical Code(s): G31.09 - Other frontotemporal neurocognitive disorder; F02.80 - Dementia in other diseases classified elsewhere, unspecified severity, without behavioral disturbance, psychotic disturbance, mood disturbance, and anxiety (2) Inability to walk: Status: Acute Category: Medical Code(s): R26.2 - Difficulty in walking, not elsewhere classified (3) Acute hyperkalemia: Status: Acute Category: Medical Code(s): E87.5 - Hyperkalemia (4) UTI (urinary tract infection): Status: Acute Category: Medical Code(s): N39.0 - Urinary tract infection, site not specified (5) Urinary incontinence: Problem Comment: Trial with Detrol XL 2 mg was recommended as 07/17/2023 Status: Chronic Qualifiers: Urinary Incontinence type: stress incontinence Qualified Code(s): N39.3 - Stress incontinence (female) (male) Category: Medical Code(s): R32 - Unspecified urinary incontinence (6) Dementia: Status: Acute Category: Medical Code(s): F03.90 - Unspecified dementia, unspecified severity, without behavioral disturbance, psychotic disturbance, mood disturbance, and anxiety Plan Patient is a 78-year-old female with past medical history of frontotemporal dementia hypertension hyperlipidemia obstructive sleep apnea atrial fibrillation hypothyroidism, CAD, pulmonary hypertension who presented to hospital due to generalized weakness, inability to walk as well as inability to take care of herself. Normally patient caregiver is patient's however patient's has not been able to take care of her likely. Patient has not been able to walk at home, patient's brought her to the hospital due to generalized weakness. Admitted to medicine for further management. Therapy evaluating. Problems addressed as follows: Generalized weakness, difficulty walking Inability to perform activities of daily living Memory deficits History of frontotemporal dementia -Therapy evaluating and working with patient daily. Case management social work assisting with care. Patient likely has progressive degenerative disorder with frontotemporal dementia. Discussed placement options as he is unsure about caring for her at home given her level of needs. Discussing placement at intermediate via private pay, hospice at home or facility. Hospice consulted today. -Continue fall precautions -Still having pain in legs. R foot pain, likely due to PAD - patient is on home xarelto, reportedly this is not a new finding White cell count normal at 5.2, kidney function normal with BUN at 14 and creatinine 0.7. Repeat labs with CBC, CMP, magnesium ordered for the morning. Chronic medical conditions Obstructive sleep apnea Diabete Melitis Atrial fibrillation on Xarelto Pulmonary hypertension Hypertension Full code Modified diet xarelto
--- NOTE | 2023-09-10 14:14 | P.EN_ITS ---
Advance care planning note: Active diagnosis: Frontotemporal dementia, progressive weakness and debility, difficulty walking, UTI, hypertension, hypothyroid, CAD The patient's active diagnoses are of sufficient risk that focused discussion on advanced care planning is indicated in order to allow the patient to thoughtfully consider personal goals of care; and, if situations arise that prevent the ability to personally give input, to ensure appropriate representation of their personal desires through documentation or informed surrogate decision makers. Discussion: Persons present and participating in discussion: and patient, social work, myself Discussion: Extensive discussion about dispo planning including patient's progressive disease that is life limiting. Discussed that she will continue to have progressing debility and weakness. Concern for his ability to care for her by himself at home. Patient and expressed concern and limited understanding about her disease and its progress. He reports they live in a small home, they do not have space for hospital bed or additional services. He is considering hospice, home with a sitter, private pay at a long-term, home with home health. At this time she would benefit from placement for rehab but will be private pay. Patient states she wants to go home. Concern for limited understanding of patient's disease process. appears to be overwhelmed by the information and her prognosis. Decision to at least consult hospice and reach out to [facility] for dispo planning. Time spent: Total time spent [id number] in education and discussion directly related to advance care plannin minutes Baljit Chacko 09/10/23 12:05-12:25pm
[2023-09-10 16:00] VITALS: BP 137/73; PULSE 70; RESP 17; TEMP 36.7; O2SAT 96
[2023-09-10 16:50] LABS: POC Glucose,Bedside 99 (70-110)
[2023-09-10] MEDS: RIVAROXABAN 10MG TABLET 20 MG PO (17:43)
--- NOTE | 2023-09-10 17:57 | PC.NURSE ---
PT IS AOX4 AND ANSWERS QUESTIONS APPROPRIATELY, BUT IS SLOW TO RESPOND DURING CONVERSATION. SHE HAS TOLERATED DIET AND ADMIN OF MEDICATIONS. SHE HAS SPENT MOST OF THE SHIFT RESTING IN BED WITH FAMILY AT BEDSIDE. SHE HAS NOT REQUIRED O2 SUPPORT. PUREWICK IN PLACE TO BEDSIDE DRAIN. MEDICATED FOR PAIN X1 PER MAR WITH GOOD EFFECTIVENESS.
[2023-09-10 20:00] VITALS: BP 141/68; PULSE 70; RESP 18; TEMP 36.9; O2SAT 97
[2023-09-10] MEDS: ATORVASTATIN 40MG TABLET 40 MG PO (20:34)
[2023-09-10] MEDS: MONTELUKAST SODIUM 10MG TAB 10 MG PO (20:34)
[2023-09-10 20:43] LABS: POC Glucose,Bedside 115 (70-110)
[2023-09-11] VITALS: BP 142/61; PULSE 71; RESP 18; TEMP 36.8; O2SAT 99
[2023-09-11 04:00] VITALS: BP 137/66; PULSE 69; RESP 18; TEMP 36.6; O2SAT 96; BMI 26.8
[2023-09-11] MEDS: HEPARIN SODIUM 5,000 UNIT/ML VIAL 5000 UNIT SQ (05:51)
[2023-09-11 06:11] LABS: POC Glucose,Bedside 90 (70-110)
--- NOTE | 2023-09-11 06:33 | PC.NURSE ---
no acute changes
[2023-09-11] MEDS: ACETAMINOPHEN 325MG TAB 650 MG PO (06:38)
[2023-09-11 06:39] LABS: Basophils % 0.8 % (0.1-2.0); Eosinophils # 0.1 K/mm3 (0.0-0.4); Hematocrit 38.4 % (37.0-47.0); Hemoglobin 12.1 g/dL (12.2-16.2); Lymphocytes # 1.4 K/mm3 (0.7-4.5); Lymphocytes % 27.4 % (10-50); Mean Corpuscular HGB Conc 31.6 g/dL (31.8-35.4); Mean Corpuscular Hemoglobin 30.7 pg (27.0-31.2); Mean Corpuscular Volume 97.1 fl (81-99); Mean Platelet Volume 8.9 fl (7.4-10.4); Monocytes # 0.3 K/mm3 (0.1-1.0); Monocytes % 5.2 % (1.7-9.3); Neutrophils # 3.4 K/mm3 (1.8-7.8); Neutrophils % 64.7 % (37.0-80.0); Platelet Count 166 K/mm3 (142-424); Red Blood Count 3.96 M/mm3 (4.20-5.40); Red Cell Distribution Width 13.7 % (11.5-17.5); White Blood Count 5.3 K/mm3 (4.8-10.8)
[2023-09-11 06:49] LABS: Chloride 104 mmol/L (98-107); Potassium 3.9 mmoL/L (3.5-5.1); Sodium 139 mmol/L (136-145)
[2023-09-11 06:52] LABS: Anion Gap 2.9 mEq/L (5-15); Blood Urea Nitrogen 15 mg/dl (7-17); Calcium 8.9 mg/dl (8.4-10.2); Carbon Dioxide 36 mmol/L (22.0-30.0); Creatinine Clearance Estimated 53 mL/min (50-200); Estimated Glomerular Filt Rate 70 ml/min (>60); GFR (African American) 84 ML/MIN (>60); Glucose 99 mg/dl (74-100)
[2023-09-11 08:00] VITALS: BP 139/68; PULSE 80; RESP 22; TEMP 36.9; O2SAT 98
[2023-09-11] MEDS: PANTOPRAZOLE 40MG TABLET 40 MG PO (08:24)
[2023-09-11] MEDS: ASCORBIC ACID 500MG TAB 500 MG PO (08:25)
[2023-09-11] MEDS: FAMOTIDINE 20MG TABLET 10 MG PO (08:25)
[2023-09-11] MEDS: LISINOPRIL 2.5MG TABLET 2.5 MG PO (08:25)
[2023-09-11] MEDS: FUROSEMIDE 20MG TABLET 20 MG PO (08:25)
[2023-09-11] MEDS: ATENOLOL 50MG TABLET 50 MG PO (08:26)
[2023-09-11] MEDS: MEMANTINE 10MG TABLET 10 MG PO (08:26)
[2023-09-11] MEDS: VENLAFAXINE XR 75MG CAPSULE 150 MG PO (08:26)
[2023-09-11] MEDS: FLUTICASONE PROP 50MCG NASAL SPRAY 16GM 1 SPRAY NS (08:26)
--- NOTE | 2023-09-11 10:11 | P.DS_ITS ---
General Admission date:: 09/08/23 Discharge date: 09/11/23 HPI HPI HPI: Patient is a 78-year-old female with past medical history of frontotemporal dementia hypertension hyperlipidemia obstructive sleep apnea atrial fibrillation hypothyroidism, CAD, pulmonary hypertension who presented to hospital due to generalized weakness, inability to walk as well as inability to take care of herself. Normally patient caregiver is patient's however patient's has not been able to take care of her likely. Patient has not been able to walk at home, patient's brought her to the hospital due to gene ralized weakness. Hospital Course Hospital Course Hospital Course: Patient is a 78-year-old female with past medical history of frontotemporal dementia hypertension hyperlipidemia obstructive sleep apnea atrial fibrillation hypothyroidism, CAD, pulmonary hypertension who presented to hospital due to generalized weakness, inability to walk as well as inability to take care of herself. Normally patient caregiver is patient's however patient's has not been able to take care of her likely. Patient has not been able to walk at home, patient's brought her to the hospital due to generalized weakness. Admitted to medicine for further management. Therapy evaluating patient daily. Beyond her 's ability to care for her. Needs placement for further management. Concern for progressive decline related to her frontotemporal dementia. Problems addressed as follows: Generalized weakness, difficulty walking Inability to perform activities of daily living Memory deficits History of frontotemporal dementia -Therapy evaluating and working with patient daily. Case management social work assisting with care. Patient likely has progressive degenerative disorder with frontotemporal dementia. Discussed placement options with patient and . He is unable to care for her at home as she is no longer able to walk. Would like to attempt rehab, concern for her ability to improve however. Discussed the concept of hospice, she was evaluated by other services but not meeting criteria at this time. Has been graciously excepted by [facility] for further management. Will discharge to their care for rehab and penitentiary. R foot pain, likely due to PAD: Chronic, continue Tylenol as needed. Patient is on home xarelto, reportedly this is not a new finding Labs normal on day of discharge with white cell count of 5.2, hemoglobin 12.1, platelets 166. Kidney function normal with BUN 15 and creatinine 0.8. Chronic medical conditions Obstructive sleep apnea Diabete Melitis Atrial fibrillation on Xarelto Pulmonary hypertension Hypertension -Continuing home meds for these conditions. Constipation: Continue docusate/senna Stable to discharge to rehab. Exam Data for Last 24 hours Vital signs and Labs for Last 24 Hours: Temp Pulse Resp BP Pulse Ox O2 Del Method O2 Flow Rate 98.4 F 80 22 139/68 98 Room Air 2 09/11/23 08:00 09/11/23 08:00 09/11/23 08:00 09/11/23 08:00 09/11/23 08:00 09/11/23 09:00 09/09/23 21:00 Laboratory Results - last 24 hr 09/10/23 10:17: POC Glucose 113 H 09/10/23 16:26: POC Glucose 99 09/10/23 20:32: POC Glucose 115 H 09/11/23 05:44: WBC 5.3, RBC 3.96 L, Hgb 12.1 L, Hct 38.4, MCV 97.1, MCH 30.7, MCHC 31.6 L, RDW 13.7, Plt Count 166, MPV 8.9, Neut % (Auto) 64.7, Lymph % (Auto) 27.4, [place] % (Auto) 5.2, Eos % (Auto) 2.0, Baso % (Auto) 0.8, Neut # (Auto) 3.4, Lymph # (Auto) 1.4, [place] # (Auto) 0.3, Eos # (Auto) 0.1, Baso # (Auto) 0.0, Sodium 139, Potassium 3.9, Chloride 104, Carbon Dioxide 36 H, Anion Gap 2.9 L, BUN 15, Creatinine 0.80, Estimated Creat Clear 53, Estimated GFR 70, Est GFR ( Amer) 84, Glucose 99, Calcium 8.9 09/11/23 05:51: POC Glucose 90 I & O for Last 24 hours: Intake & Output 09/08/23 09/09/23 09/10/23 09/11/23 23:59 23:59 23:59 23:59 Intake Total 1936 / 1936 1470 / 1470 390 / 390 Output Total 0 / 0 2900 / 3200 3600 / 3600 500 / 500 Balance 0 / 490 -964 / -1264 -2130 / -2130 -110 / -110 Weight 74.843 kg 74.8 kg 73.21 kg 71.305 kg Constitutional Constitutional: no acute distress, average body habitus, chronically ill appearing and cooperative *Routine HEENT Exam Head: Present normocephalic Eye: Present EOMI and PERRL ENT: Present mucous membranes moist *Routine Neck Exam Neck: Present supple; Absent lymphadenopathy *Routine Respiratory Exam Respiratory: Present CTA bilaterally; Absent rhonchi, wheezes or crackles *Routine Cardiovascular Exam Cardiovascular: Present RRR *Routine Abdominal Exam Abdominal: Present soft and normoactive bowel sounds; Absent tenderness *Routine Rectal Exam Patient deferred: visual exam *Routine Exam Patient deferred: external exam *Routine Extremities Exam Extremities: Absent cyanosis, clubbing or edema *Routine Skin Exam Skin: Present intact and warm; Absent rash *Routine Neurological Exam Neurological: Present alert and moving all extremities Comments: Slow to respond, oriented to self. Results Data Completed and Pending Labs on day of discharge: Labs from last 24 hours 09/11/23 09/11/23 09/10/23 05:51 05:44 20:32 WBC 5.3 RBC 3.96 L Hgb 12.1 L Hct 38.4 MCV 97.1 MCH 30.7 MCHC 31.6 L RDW 13.7 Plt Count 166 MPV 8.9 Neut % (Auto) 64.7 Lymph % (Auto) 27.4 [place] % (Auto) 5.2 Eos % (Auto) 2.0 Baso % (Auto) 0.8 Neut # (Auto) 3.4 Lymph # (Auto) 1.4 [place] # (Auto) 0.3 Eos # (Auto) 0.1 Baso # (Auto) 0.0 Sodium 139 Potassium 3.9 Chloride 104 Carbon Dioxide 36 H Anion Gap 2.9 L BUN 15 Creatinine 0.80 Estimated Creat Clear 53 Estimated GFR 70 Est GFR ( Amer) 84 Glucose 99 POC Glucose 90 115 H Calcium 8.9 09/10/23 09/10/23 16:26 10:17 WBC RBC Hgb Hct MCV MCH MCHC RDW Plt Count MPV Neut % (Auto) Lymph % (Auto) [place] % (Auto) Eos % (Auto) Baso % (Auto) Neut # (Auto) Lymph # (Auto) [place] # (Auto) Eos # (Auto) Baso # (Auto) Sodium Potassium Chloride Carbon Dioxide Anion Gap BUN Creatinine Estimated Creat Clear Estimated GFR Est GFR ( Amer) Glucose POC Glucose 99 113 H Calcium DS: Diagnosis Discharge Diagnosis (1) Fronto-temporal dementia: Status: Acute Code(s): G31.09 - Other frontotemporal neurocognitive disorder; F02.80 - Dementia in other diseases classified elsewhere, unspecified severity, without behavioral disturbance, psychotic disturbance, mood disturbance, and anxiety (2) Inability to walk: Status: Acute Code(s): R26.2 - Difficulty in walking, not elsewhere classified (3) Acute hyperkalemia: Status: Acute Code(s): E87.5 - Hyperkalemia (4) UTI (urinary tract infection): Status: Acute Code(s): N39.0 - Urinary tract infection, site not specified (5) Urinary incontinence: Status: Chronic Code(s): R32 - Unspecified urinary incontinence Qualifiers: Urinary Incontinence type: stress incontinence Qualified Code(s): N39.3 - Stress incontinence (female) (male) Problem details: Trial with Detrol XL 2 mg was recommended as 07/17/2023 (6) Dementia: Status: Acute Code(s): F03.90 - Unspecified dementia, unspecified severity, without behavioral disturbance, psychotic disturbance, mood disturbance, and anxiety Meds Home Medications and Allergies Home Medications Medication Instructions Recorded Confirmed Type multivit with min-folic 1 each PO DAILY Supplement 05/03/20 09/08/23 History acid-lutein 400 mcg-250 mcg chewable tablet furosemide 20 mg tablet (Lasix) 20 mg PO DAILY Fluid 01/26/22 09/08/23 History albuterol sulfate 90 mcg/actuation 2 inh inhalation QID PRN shortness 07/23/22 09/08/23 Rx aerosol inhaler of breath or wheezing #8.5 grams memantine 10 mg tablet (Namenda) 10 mg PO BID Dementia 90 days #180 01/24/23 09/08/23 Rx tabs fluticasone propionate 50 1 spray intranasal DAILY Allergy 02/27/23 09/08/23 Rx mcg/actuation nasal symptoms 90 days #48 grams spray,suspension (Allergy Relief (fluticasone)) ascorbate calcium (vitamin C) 500 500 mg PO DAILY 07/17/23 09/08/23 History mg tablet ashwagandha root extract 300 mg 300 mg PO DAILY 07/17/23 09/08/23 History capsule coenzyme Q10 100 mg capsule 100 mg PO DAILY 07/17/23 09/08/23 History (CoQ-10) montelukast 10 mg tablet 10 mg PO DAILY 90 days #90 tabs 07/26/23 09/08/23 Rx (Singulair) omeprazole 20 mg capsule,delayed 20 mg PO BID GERD 90 days #180 caps 07/26/23 09/08/23 Rx release lisinopril 2.5 mg tablet 2.5 mg PO DAILY #30 tabs 08/21/23 09/08/23 Rx atenolol 50 mg tablet 50 mg PO DAILY 09/08/23 09/08/23 History atorvastatin 40 mg tablet 40 mg PO HS 09/08/23 09/08/23 History calcium carbonate 600 mg calcium 600 mg PO DAILY 09/08/23 09/09/23 History (1,500 mg) tablet (Calcium) famotidine 20 mg tablet 20 mg PO DAILY 09/08/23 09/08/23 History rivaroxaban 20 mg tablet (Xarelto) 20 mg PO DAILY 09/08/23 09/08/23 History venlafaxine 150 mg tablet,extended 150 mg PO DAILY 09/08/23 09/08/23 History release 24 hr levothyroxine 150 mcg tablet 150 mcg PO SUMOTUTHFRSA 09/09/23 09/09/23 History sennosides 8.6 mg-docusate sodium 1 tab PO BID 30 days #60 tabs 09/11/23 Rx 50 mg tablet (Stimulant Laxative Plus) New Prescriptions to Start Prescriptions: sennosides-docusate sodium [Stimulant Laxative Plus] Baljit Chacko Allergies Allergy/AdvReac Type Severity Reaction Status Date / Time house dust Allergy Verified 08/30/23 12:02 pollen extracts Allergy Verified 08/30/23 12:02 ondansetron AdvReac Verified 08/30/23 12:02 [From Zofran (as hydrochloride)] Discharge Plan Disposition Patient Disposition: Xfer SNF Condition: Fair Discharge Order Discharge Orders: Discharge Order (Routine); Ordered 09/11/23 Ordered By: Baljit Chacko Follow up Plan Follow up with: Reid Quintana MD [Primary Care Provider] - See instructions Prescriptions/Medication Reconciliation: New sennosides-docusate sodium [Stimulant Laxative Plus] 8.6-50 mg Tablet 1 tab PO BID 30 Days Qty: 60 0RF Continued furosemide [Lasix] 20 mg tablet 20 mg PO DAILY fluticasone propionate [Allergy Relief (fluticasone)] 50 mcg/actuation spray,suspension 1 spray NS DAILY 90 Days Qty: 48 0RF memantine [Namenda] 10 mg tablet 10 mg PO BID MDD 20 mg 90 Days Qty: 180 3RF coenzyme Q10 [CoQ-10] 100 mg capsule 100 mg PO DAILY ashwagandha root extract 300 mg capsule 300 mg PO DAILY ascorbate calcium (vitamin C) 500 mg tablet 500 mg PO DAILY lisinopril 2.5 mg tablet 2.5 mg PO DAILY Qty: 30 2RF albuterol sulfate 90 mcg/actuation HFA aerosol inhaler 2 inh IH QID PRN (Reason: shortness of breath or wheezing) Qty: 8.5 1RF montelukast [Singulair] 10 mg tablet 10 mg PO DAILY 90 Days Qty: 90 1RF omeprazole 20 mg capsule,delayed release(DR/EC) 20 mg PO BID 90 Days Qty: 180 1RF Patient Comments: TAKE 1 CAPSULE BY MOUTH TWICE A DAY [id number] acid-lutein 1 EACH tablet,chewable 1 each PO DAILY calcium carbonate [Calcium 600] 600 mg calcium (1,500 mg) Tablet 600 mg PO DAILY atorvastatin 40 mg tablet 40 mg PO HS famotidine 20 mg tablet 20 mg PO DAILY atenolol 50 mg tablet 50 mg PO DAILY venlafaxine 150 mg tablet extended release 24hr 150 mg PO DAILY Xarelto 20 mg tablet 20 mg PO DAILY levothyroxine 150 mcg tablet 150 mcg PO SUMOTUTHFRSA Patient Comments: TAKE 1 TABLET BY MOUTH EVERY DAY Discontinued nitrofurantoin monohyd/m-cryst [Macrobid] 100 mg capsule 100 mg PO Q12H Qty: 20 0RF Rx Instructions: must administer with a meal/food Problem Reconciliation Problems Reviewed?: Yes Patient Discharge Instructions ACTIVITY: Continue current activity DIET: continue same diet Patient Instructions: DI for Urinary Tract Infection (UTI), DI for Hyperkalemia Providers Primary Care Provider: Reid Quintana Admit Provider: Rody Gee Attending Provider: Rody Gee
--- NOTE | 2023-09-11 12:08 | PC.NURSE ---
report called to [facility] spoke with nurse Betancourt.
[2023-09-11] MEDS: SENNOSIDES 8.6MG/DOCUSATE 50MG TABLET 1 TAB PO (12:32)
[2023-09-12 05:47] LABS: POC Glucose,Bedside 99 (70-110)
== END 2023-09-11 13:00 ==
LOC: ER 13:55 → 2ND 14:54
PROVIDERS: Admitting Provider Internal Medicine; Emergency Provider Student in an Organized Health Care Education/Training Program; PCP Family Medicine; Visit Provider Internal Medicine
DX: R26.2 Difficulty in walking, not elsewhere classified (principal); G31.09 Other frontotemporal neurocognitive disorder; F02.80 Dementia in other diseases classified elsewhere, unspecified severity, without behavioral disturbance, psychotic disturbance, mood disturbance, and anxiety; E87.5 Hyperkalemia; N39.0 Urinary tract infection, site not specified; N39.3 Stress incontinence (female) (male); Z79.01 Long term (current) use of anticoagulants; Z79.899 Other long term (current) drug therapy; Z95.5 Presence of coronary angioplasty implant and graft; I48.0 Paroxysmal atrial fibrillation; I10 Essential (primary) hypertension; E11.9 Type 2 diabetes mellitus without complications; I44.1 Atrioventricular block, second degree; Z87.891 Personal history of nicotine dependence; E03.9 Hypothyroidism, unspecified; Z63.6 Dependent relative needing care at home; Z74.1 Need for assistance with personal care
CPT/HCPCS: 36415; 80048; 80053; 81001; 82550; 82962; 83735; 84100; 84484; 85025; 92610; 93005; 97110; 97163; 97165; 97530; 99285; G0378

== ENCOUNTER 2024-06-08 01:03 | Outpatient (CLI) | payer MEDICARE, BC, SELFPAY ==
[2024-06-08 01:34] LABS: Hemoglobin 11.3 g/dL (12.2-16.2); Red Blood Count 3.73 M/mm3 (4.20-5.40)
[2024-06-08 01:35] LABS: Basophils # 0.1 K/mm3 (0-0.2); Eosinophils # 0.1 K/mm3 (0.0-0.4); Eosinophils % 2.4 % (0.1-12.0); Hematocrit 34.3 % (37.0-47.0); Lymphocytes # 1.8 K/mm3 (0.7-4.5); Mean Corpuscular HGB Conc 32.9 g/dL (31.8-35.4); Mean Corpuscular Hemoglobin 30.3 pg (27.0-31.2); Mean Platelet Volume 10.1 fl (7.4-10.4); Monocytes # 0.3 K/mm3 (0.1-1.0); Monocytes % 6.7 % (1.7-9.3); Neutrophils # 2.7 K/mm3 (1.8-7.8); Neutrophils % 53.7 % (37.0-80.0); Platelet Count 179 K/mm3 (142-424); Red Cell Distribution Width 12.9 % (11.5-17.5)
[2024-06-08 01:43] LABS: Blood Urea Nitrogen 16 mg/dl (7-17); Calcium 8.9 mg/dl (8.4-10.2); Carbon Dioxide 33 mmol/L (22.0-30.0); Chloride 103 mmol/L (98-107); Estimated Glomerular Filt Rate 70 ml/min (>60); GFR (African American) 84 ML/MIN (>60); Glucose 99 mg/dl (74-100); Potassium 3.9 mmoL/L (3.5-5.1)
[2024-06-08 01:44] LABS: Activated Partial Thrombo Time 37.3 seconds (22.8-30.6); INR 1.17 (0.9-1.1); Prothrombin Time 12.9 seconds (10.1-12.5)
[2024-06-08 01:50] LABS: Anion Gap 10.9 mEq/L (5-15); Sodium 143 mmol/L (136-145)
== END 2024-06-08 23:59 | disposition home or self-care (01) ==
LOC: LAB.DROPOF 01:04
PROVIDERS: PCP Family Medicine; Visit Provider Family Medicine
DX: R79.9 Abnormal finding of blood chemistry, unspecified (principal); R79.1 Abnormal coagulation profile
CPT/HCPCS: 80048; 85025; 85610; 85730

== ENCOUNTER 2024-06-13 22:42 | Outpatient (CLI) | payer MEDICARE, BC, SELFPAY ==
[2024-06-13 22:54] LABS: Microscopic, Urine URINE MICROSCOPIC (MICROSCOPIC)
[2024-06-13 23:00] LABS: Blood, Urine 3+ (Negative); Glucose,Urine (UA) Negative (Negative); Ketones,Urine Negative (Negative); Leukocyte Esterase,Urine Negative (Negative); Nitrate,Urine Negative (Negative); PH,Urine 7.5 (5.0-8.5); Protein,Urine 2+ (Negative); Specific Gravity, Urine 1.015 (1.005-1.030); Urobilinogen,Urine 0.2 EU/dl (0.2)
[2024-06-13 23:01] LABS: Appearance,Urine Turbid (Clear); Bilirubin,Urine 1+ (Negative); Color,Urine Amber (Yellow)
[2024-06-13 23:15] LABS: Bacteria,Urine Trace /lpf; RBC,Urine 50-100 #/hpf (0-3)
== END 2024-06-13 23:59 | disposition home or self-care (01) ==
LOC: LAB.DROPOF 22:44
PROVIDERS: PCP Family Medicine; Visit Provider Family Medicine
DX: R82.90 Unspecified abnormal findings in urine (principal)
CPT/HCPCS: 81001

== ENCOUNTER 2024-06-25 13:17 | Outpatient (CLI) | payer MEDICARE, BC, SELFPAY | END 2024-06-25 23:59 | disposition home or self-care (01) | LOC: RT 13:20 | PROVIDERS: PCP Family Medicine; Visit Provider Internal Medicine Pulmonary Disease | DX: R06.09 Other forms of dyspnea (principal) | CPT/HCPCS: 94060 ==

== ENCOUNTER 2024-09-15 13:01 | Outpatient (CLI) | payer MEDICARE, BC, SELFPAY ==
--- NOTE | 2024-09-15 | CA_ITS ---
APPROVED REPORT EXAM: Comprehensive 2D, Doppler, and color-flow Echocardiogram Consulting Practice Manager: DELMY Prasad, RVS Ht: 5 ft 2 in Wt: 172lbs BSA: 1.79 BP: 105/51 mmHg Indications: CAD, Dementia, AI, A-fib, PETRONA, Ex-smoker, HLD Echo Enhancing Agent Comments: Wheelchair bound-scanned upright in wheelchair 2D Dimensions Left Atrium 4.03 cm LA Volume 62.40 mL LA Volume Index 34.429255 mL/m2 (M/F) 16-34 M-Mode Dimensions RVDd 2.64 cm (0.9-2.6) LA Diam 3.59 cm (1.9-4.0) LVDd 4.73 cm (3.5-5.7) LVDs 3.25 cm (3.5-5.7) IVSd 1.08 cm (0.6-1.1) PWd 1.01 cm (0.6-1.1) EF (Teich) 59.10% EPSs 0.54 cm FS 31.30% EDV (Teich) 103.90 mL TAPSE 1.37 (<1.7) ESV (Teich) 42.50 mL LV Diastology E Decel Time 297 (160-240 msec) E/A Ratio 0.93 MED A' 6.30 cm/s LAT A' 4.60 cm/s Aortic Valve AI PHT 496.00 ms Mitral Valve MV A Velocity 62.0 (40-130 cm/s) E/A Ratio 0.93 Pulmonary Valve PV Peak Velocity 70.0 (50-150 cm/s) Tricuspid Valve TR P. Velocity 265.00 cm/s RAP Estimate 10.00 mmHg RVSP 38.10 mmHg Left Ventricle The left ventricle is normal size. The left ventricular systolic function is normal. The left ventricular ejection fraction is within the normal range. There is increased LV wall thickness. There is normal LV segmental wall motion. The left ventricular diastolic function is normal. LVEF is 55%. Right Ventricle Right ventricle is mildly dilated. Right ventricle is mildly hypokinetic. Atria Left atrium is moderately dilated. Right atrium is mildly dilated. There is no Doppler evidence of interatrial shunt. Aortic Valve The aortic valve is mildly thickened. There is no aortic valvular stenosis. Mild aortic regurgitation. Mitral Valve The mitral valve is normal in structure. No evidence of mitral valve stenosis. Mild mitral regurgitation. Tricuspid Valve Tricuspid valve is grossly normal in structure and function. Mild tricuspid regurgitation. RVSP is normal. Pulmonic Valve The pulmonary valve is normal in structure. Trace pulmonic regurgitation. Great Vessels The aortic root is normal in size. IVC is normal in size and collapses >50% with inspiration. Pericardium There is no pericardial effusion. Other Information Study Quality: Fair Conclusion Normal LV systolic function. Mild RV dilation with mild reduction in RV function. Biatrial dilation. Mild AI, mild MR, mild TR. Electronically signed by : Jeny Washington MD 09/26/2024 16:05:30
[2024-09-15 13:52] LABS: Basophils # 0.1 K/mm3 (0-0.2); Basophils % 1.1 % (0.1-2.0); Eosinophils # 0.1 K/mm3 (0.0-0.4); Eosinophils % 1.7 % (0.1-12.0); Hematocrit 42.4 % (37.0-47.0); Hemoglobin 13.6 g/dL (12.2-16.2); Lymphocytes # 1.4 K/mm3 (0.7-4.5); Lymphocytes % 29.2 % (10-50); Mean Corpuscular HGB Conc 32.1 g/dL (31.8-35.4); Mean Corpuscular Hemoglobin 29.8 pg (27.0-31.2); Mean Corpuscular Volume 92.8 fl (81-99); Mean Platelet Volume 10.5 fl (7.4-10.4); Monocytes # 0.2 K/mm3 (0.1-1.0); Monocytes % 5.2 % (1.7-9.3); Neutrophils # 2.9 K/mm3 (1.8-7.8); Neutrophils % 62.6 % (37.0-80.0); Platelet Count 189 K/mm3 (142-424); Red Blood Count 4.57 M/mm3 (4.20-5.40); Red Cell Distribution Width 13.5 % (11.5-17.5); White Blood Count 4.6 K/mm3 (4.8-10.8)
[2024-09-15 14:34] LABS: Alanine Aminotransferase 18 U/L (12-78); Albumin Level 3.4 g/dl (3.5-5.0); Alkaline Phosphatase 73 U/L (38-126); Anion Gap 10.1 mEq/L (5-15); Aspartate Amino Transferase 26 U/L (14-36); Bilirubin,Direct 0.2 mg/dl (0.0-0.4); Bilirubin,Indirect 0.4 mg/dL (0.0-0.9); Bilirubin,Total 0.6 mg/dl (0.2-1.3); Bilirubin,Unconjugated 0.4 mg/dL (0.0-1.1); Blood Urea Nitrogen 8 mg/dl (7-17); Calcium 9.3 mg/dl (8.4-10.2); Carbon Dioxide 32 mmol/L (22.0-30.0); Chloride 101 mmol/L (98-107); Chol/HDL Ratio 2.1 (1-3.5); Cholesterol 108 mg/dl (140-200); Estimated Glomerular Filt Rate 119 ml/min (>60); GFR (African American) 144 ML/MIN (>60); Glucose 100 mg/dl (74-100); HDL Cholesterol 51 mg/dl (40-60); Potassium 4.1 mmoL/L (3.5-5.1); Sodium 139 mmol/L (136-145); Total Protein,Serum 5.8 g/dl (6.3-8.2); Triglycerides 91 mg/dl (30-150); VLDL Cholesterol 18 mg/dL (0-40)
[2024-09-15 14:45] LABS: Direct LDL Cholesterol 33.09 mg/dL (100-129)
[2024-09-15 14:46] LABS: Free T4 (Free Thyroxine) 1.35 ng/dl (0.78-2.19)
[2024-09-15 15:04] LABS: Thyroid Stimulating Hormone 1.99 uIU/mL (0.465-4.68)
== END 2024-09-15 23:59 | disposition home or self-care (01) ==
LOC: RT 13:03
PROVIDERS: PCP Family Medicine; Visit Provider Physician Assistant
DX: I48.0 Paroxysmal atrial fibrillation (principal); Z95.5 Presence of coronary angioplasty implant and graft; I25.10 Atherosclerotic heart disease of native coronary artery without angina pectoris; E78.5 Hyperlipidemia, unspecified; I10 Essential (primary) hypertension; E03.9 Hypothyroidism, unspecified; I27.20 Pulmonary hypertension, unspecified
CPT/HCPCS: 36415; 80048; 80061; 80076; 84439; 84443; 85025; 93306

== ENCOUNTER 2024-12-31 13:45 | Outpatient (CLI) | payer MEDICARE, BC, SELFPAY ==
--- OUTSIDE RECORDS SUMMARY | 2024-09-19 17:30 | XMS_ITS ---
Author Organization [facility] Address [address] [facility] [address] [place] [address] Care Team Providers Care Rib Trim Separator Name Role Phone Bhupendra Smith Primary Care Provider [phone] Migration, Provider Unavailable Unavailable REAS[facility] VISIT [facility] Encounter Medications Medication SIG (Take, Route, Frequency, Duration) Notes Start Date End Date Status Atorvastatin Calcium 40 MG 1 tab(s) orally once a day; Duration: 90 Active Furosemide 20 MG 1 tab(s) orally once a day; Duration: 90 Active Famotidine 20 MG 1 tab(s) orally 2 times a day; Duration: 90 days Active metFORMIN HCl 500 MG 1 tab(s) orally daily; Duration: 90 Active Cipro 500 MG 1 tab(s) orally every 12 hours; Duration: 7 days 11/08/2021 Active Triamcinolone Acetonide 0.5 % 1 therese applied topically TID for itching; Duration: 14 days 12/02/2019 Active Venlafaxine HCl ER 150 MG 1 TAB(S) ORALLY ONCE A DAY; Duration: 90 DAYS *Please review and pick correct strength-formulati on from Simtrolspan options. If intended option is not shown, discontinue and re-order from Quick Search* 11/11/2019 Active C-PAP MACHINE SETTINGS ARE FROM 10-14 DIRECTED DX: PETRONA *Please review for potential replacement for e-prescription and drug interaction check* 07/31/2019 Active Clotrimazole 1 % 1 therese applied topically 2 times a day; Duration: 14 days 12/02/2019 Active Xarelto 20 MG 1 tablet po qd A ctive Vitamin C 500 MG 1 tab(s) orally once a day; Duration: 30 day(s) Active Flonase Allergy Relief 50 MCG/ACT 1 spray(s) intranasally once a day; Duration: 90 Active C-PAP SUPPLIES DIRECTED *Please review f or potential replacement for e-prescription and drug interaction check* 06/06/2016 Active Multivitamin MULTIPLE VITAMINS 1 CAP(S) ORALLY ONCE A DAY *Please review and pick correct strength-formulati on from SkySQL options. If intended option is not shown, discontinue and re-order from Quick Search* Active Atenolol 50 MG 1 tab orally once a day Active Omeprazole 20 MG 1 cap(s) orally twice daily; Duration: 90 Active Lisinopril 40 MG 1 tab(s) orally once a day; Duration: 90 days Active Digoxin 125 MCG 1 tab(s) orally once a day; Duration: 90 Active Citracal Maximum 250 MG-500 INTL UNITS 1 TAB(S) CHEWED ONCE DAILY *Please review and pick correct strength-formulati on from [employer]SQL options. If intended option is not shown, discontinue and re-order from Quick Search* Active Levothyroxine Sodium 150 MCG 1 tab(s) orally once a day; Duration: 90 Active Encounters Encounter Location Date Provider Diagnosis [facility] [address] [facility] [address] [place] [address] 09/19/2024 Provider Migration Gross hematuria R31.0 Assessments Encounter Date Diagnosis (ICD Code) Assessment Notes Treatment Notes Treatment Clinical Notes Section Notes 09/19/2024 Gross hematuria (ICD-10 - R31.0) Plan Of Treatment Medication Medication Name Sig Start Date Stop Date Notes Atorvastatin Calcium 40 MG 1 tab(s) oral ly once a day; Duration: 90 Furosemide 20 MG 1 tab(s) orally once a day; Duration: 90 Famotidine 20 MG 1 tab(s) orally 2 ti mes a day; Duration: 90 days Cipro 500 MG 1 tab(s) orally ever y 12 hours; Duration: 7 days 11/08/2021 Flonase Allergy Relief 50 MCG/ACT 1 spray(s) intranasally once a day; Duration: 90 Omeprazole 20 MG 1 cap(s) orally twic e daily; Duration: 90 Lisinopril 40 MG 1 tab(s) orally once a day; Duration: 90 days Digoxin 125 MCG 1 tab(s) orally once a day; Duration: 90 Levothyroxine Sodium 150 MCG 1 tab(s) or ally once a day; Duration: 90 Progress Notes * Lashaun SCHREIBER JohnDOB:[birth year] (79 yo F)Acc No.[id number]:09/19/2024 Patient: Lashaun FITZPATRICK Provider: Ute Khan :1945 A ge:79 Y S ex:Female Date:09/19/2024 Address:[address], [id number] Pcp:Bhupendra Smith Subjective: * Chief Complaints: * 1 . Multum To [facility] Conversion Encounter. * Medical History: * Medications: T aking Citracal Maximum 250 MG-500 INTL UNITS TABLET, CHEWABLE 1 TAB(S) CHEWED ONCE DAILY , Notes to Pharmacist: *Please review and pick correct strength- formulation from Simtrolspan options. If intended option is not shown, discontinue and re-order from Quick Search*, Taking Vitamin C 500 MG Tablet 1 tab(s) orally once a day , Taking C-PAP SUPPLIES DX: SLEEP APNEA DIRECTED , Notes to Pharmacist: *Please review for potential replacement for e-prescription and drug interaction check*, Taking Multivitamin MULTIPLE VITAMINS CAPSULE 1 CAP(S) ORALLY ONCE A DAY , Notes to Pharmacist: *Please review and pick correct strength-formulation from Simtrolspan options. If intended option is not shown, discontinue and re-order from Quick Search*, Taking Atenolol 50 MG Tablet 1 tab orally once a day , Taking Xarelto 20 MG Tablet 1 tablet po qd , Taking C-PAP MACHINE SETTINGS ARE FROM 10-14 DIRECTED DX: PETRONA , Notes to Pharmacist: *Please review for potential replacement for e-prescription and drug interaction check*, Taking Clotrimazole 1 % Cream 1 therese applied topically 2 times a day , Taking Triamcinolone Acetonide 0.5 % Cream 1 therese applied topically TID for itching , Taking Venlafaxine HCl ER 150 MG TABLET, EXTENDED RELEASE 1 TAB(S) ORALLY ONCE A DAY , Notes to Pharmacist: *Please review and pick correct strength-formulation from Simtrolspan options. If intended option is not shown, discontinue and re-order from Quick Search*, Taking metFORMIN HCl 500 MG Tablet 1 tab(s) orally daily Objective: * Vitals: Assessment: * Assessment: Shell fermin hematuria - R31.0 (Primary) Plan: * Treatment: 2. O thers Start Famotidine Tablet, 20 MG, 1 tab(s), orally, 2 times a day, 90 days, 180 Tablet, Refills 2;?Start Atorvastatin Calcium Tablet, 40 MG, 1 tab(s), orally, once a day, 90, 90, Refills 2; S tart Flonase Allergy Relief Suspension, 50 MCG/ACT, 1 spray(s), intranasally, once a day, 90, 48, Refills 1; S tart Digoxin Tablet, 125 MCG, 1 tab(s), orally, once a day, 90, 90, Refills 2; S tart Lisinopril Tablet, 40 MG, 1 tab(s), orally, once a day, 90 days, 90 Tablet, Refills 2; S tart Omeprazole Capsule Delayed Release, 20 MG, 1 cap(s), orally, twice daily, 90, 180, Refills 3; Start Levothyroxine Sodium Tablet, 150 MCG, 1 tab(s), orally, once a day, 90, 90, Refills 2; S tart Furosemide Tablet, 20 MG, 1 tab(s), orally, once a day, 90, 90, Refills 3. * * Electronic signature of Prov ider Migration on 12/31/2024 at 02:00 PM EDT Sign off status: Pending * Provider: Ute washing[place] Migration Date: 09/19/2024 Generated for Wade farley/Albaro/Keiko on: 12/31/2024 02:00 PM EDT
--- NOTE | 2024-12-31 13:48 | CT_ITS ---
FINAL REPORT TECHNIQUE: Axial CT with contrast with 3-D MIP reconstruction This study was performed with techniques to keep radiation doses as low as reasonably achievable, (ALARA). Individualized dose reduction techniques using automated exposure control or adjustment of mA and/or kV according to the patient's size were employed. CLINICAL HISTORY: Adenopathy COMPARISON: 08/14/2023 FINDINGS: CT CHEST WITH CONTRAST: No pulmonary mass or infiltrate is present. Left lower lobe atelectasis is noted. The atelectasis may obscure the previously described nodule in the left lower lobe. There is no consolidation or new lesion identified. There is no significant pleural effusion. There is no significant pericardial effusion. No mediastinal or hilar adenopathy is present. IMPRESSION: 1. Left lower lobe atelectasis may obscure the previously described left lower lobe pulmonary nodule. There is no enlarged nodule identified in the left lower lobe. Reviewed, Interpreted and Dictated by Forrest Noe MD Transcribed by Gwen Arreguin Authenticated and [facility]
--- OUTSIDE RECORDS SUMMARY | 2024-12-31 14:01 | XMS_ITS | Encounter Summary ---
Author Organization [facility] ([place], [place], [place], [place]) Address [address] [place] [address] Care Team Providers Care Sewing Machine Operator Paper Bags Name Role Phone Unavailable Primary Care Provider Unavailabl e Encounter Details Date Type Department Care Team (Late st Contact Info) Description 05/04/2020 Transcribed Document [facility] [place] [address] Akilah Moreau MD [address] [place], [place] [id number] Social History Tobacco Use Types Packs/Day Years Used Date Smoking Tobacco: Never Assessed Comments Unknown Sex and Gender Information Value Date Recorded Sex Assigned at Not on file Legal Sex Female 7:00 PM CDT Gender Identity Not on file Sexual Orientation Not on file documented as of this encounter Miscellaneous Notes * Cerner Conversion Note - Akilah ProviderMD - 05/04/2020 8:58 AM [employer] [place] DATE OF SERVICE: 04/27/2020 POLYSOMNOGRAPHY CPAP TITRATION REPORT INDICATION: The patient has a history of sleep apnea, treated with bilevel therapy. She has been unable to tolerate higher pressures for adequate treatment. Review of her CPAP download from February reveals that she does have a very large mask leak over an hour at night. MONTAGE: F3-M2, F4-1, C3-M2, O1-M2, O2-M1, LOC-M2, MILAGROS-M2, submental EMG (3 leads), L tibialis anterior, R tibialis anterior, ECG, SpO2, nasal airflow (pressure), oral airflow (thermal), thoracic respiratory effort and abdominal respiratory effort. Continuous recording of electroencephalographic, oculographic, submental EMG, limb movements, pulse oximetry, electrocardiogram using modified lead II torso placement, airflow via nasal pressure and thermister and respiratory effort occurred during the patient's habitual sleep time. Each 30 second epoch was scored according to The AASM Manual for the Scoring of Sleep and Associated Events using the 1B 4% hypopnea rule. Capnography was recorded. The patient was treated with Shabnam View full face mask, size medium. MONTAGE: F3-M2, F4-1, C3-M2, O1-M2, O2-M1, LOC-M2, MILAGROS-M2, submental EMG (3 leads), L tibialis anterior, R tibialis anterior, ECG, SpO2, nasal airflow (pressure), oral airflow (thermal), thoracic respiratory effort and abdominal respiratory effort. CPAP TITRATION STUDY METHOD: Continuous recording of electroencephalographic, oculographic, submental EMG, limb movements, pulse oximetry, electrocardiogram using modified lead II torso placement, airflow and respiratory effort occurred during the patient's habitual sleep time. The airflow was recorded from the CPAP flow generator. Capnography was recorded if ordered. Each 30 second epoch was scored according to The AASM Manual for the Scoring of Sleep and Associated Events using the 1B 4% hypopnea rule. RESULTS: 1. Sleep architecture: Total recording time is 465 minutes. Total sleep time is 382 minutes. Sleep efficiency 82%. Latency to sleep onset 20 minutes, wake after sleep onset 63 minutes. 2. Sleep stages: The patient did not reach REM sleep during this study. She was seen primarily in stage 2 and 3 sleep. 3. Sleep continuity arousal index was mildly elevated at 19.6. Periodic limb movement arousal index was not elevated. 4. Positive airway pressure therapy results: The patient was started on CPAP and was taken to 16 cm of water CPAP and then switched to bilevel therapy for control events. She did seem to tolerate increasing bilevel pressures relatively well. At one point, she did awaken during the night and the machining technician decreased the pressures and allowed her to go back to sleep and then she was able to sleep through fairly high pressures. Her final pressure was 23/19 with the lowest O2 saturation of 91% and AHI of 8.4. 5. Cardiac: Average heart rate was 61 with no arrhythmias. 6. Limb movements. PLMs with arousals were not increased. IMPRESSION: The patient is best treated with BiPAP at 23/19, however, it may be gradually getting to this pressure will be needed. I suggest that we are sure that she is doing well with her mask fit and that the mask leak is resolved in addition gradually increase her BiPAP settings. She is on auto BiPAP and the IMAX should be increased by 2 cm of water pressure several times over the past next months to see if we can get her to a point of tolerating therapy. /[id number] Imelda Ce Carter MD PW/AQ / PW / MODL /[id number] CC: Abril Driver PA-C Electronically signed by Lina, [facility] Conversion [employer] Cerner at 10/03/2022 10:49 PM CDT documented in this encounter Plan of Treatment Not on file documented as of this encounter Visit Diagnoses Not on filedocumented in this encounter
--- OUTSIDE RECORDS SUMMARY | 2024-12-31 14:01 | XMS_ITS | Referral Summary ---
Author Organization [facility] ([place], [place], [place], [place]) Address [address] [place] [address] Care Team Providers Care Hospitality House Supervisor Name Role Phone Unavailable Primary Care Provider Unavailabl e Social History Tobacco Use Types Packs/Day Years Used Date Smoking Tobacco: Never Assessed Comments Unknown Sex and Gender Information Value Date Recorded Sex Assigned at Not on file Legal Sex Female 7:00 PM CDT Gender Identity Not on file Sexual Orientation Not on file Plan of Treatment Not on file
--- OUTSIDE RECORDS SUMMARY | 2024-12-31 14:01 | XMS_ITS | Clinical Summary ---
Author Organization Healthcare Address [address] [place] [address] Care Team Providers Care Die Trouble Shooter Name Role Phone Reid Quintana MD Primary Care Provider Daphnie vailable Allergies Active Allergy Reactions Criticality Noted Date Comments Dust Mite Extract Itching Medium 05/09/2022 Ondansetron Unknown - Patient st ates they do not know rxn details Low 05/09/2022 Pollen Extract Unknown - Patient st ates they do not know rxn details Low 05/09/2022 Medications atorvastatin (Lipitor) 40 MG tablet Take 1 tablet (40 mg) by mouth 1 (one) time each day. 1 Active venlafaxine 150 MG 24 hr tablet Take 1 tablet (150 mg) by mouth 1 (one) time each day. 1 Active levothyroxine (Synthroid, Levoxyl) 150 MCG tablet Take 1 tablet (150 mcg) by mouth 1 (one) time each day. 1 Active multivitamin-ir fa-ygjbsvoo-cml ic acid (Centrum Silver, geriatric,) tablet 1 tab(s) orally once a day Active omeprazole (PriLOSEC) [address] capsule Take 1 capsule (20 mg) by mouth 2 (two) times a day. 1 Active omega-3 (Fish Oil) 1000 MG capsule Active Xarelto 20 MG tablet TAKE 1 TABLET BY MOUTH EVERY DAY FOR BLOOD THINNER 1 Active furosemide (Lasix) 20 MG tablet Take 1 tablet (20 mg) by mouth 1 (one) time each day. 1 Active famotidine (Pepcid) 20 MG tablet 1 Active Coenzyme Q10 (Q-SORB) 100 MG capsule 1 cap(s) orally once a day Active atenolol (Tenormin) 50 MG tablet TAKE 1 TABLET BY MOUTH EVERY DAY FOR HYPERTENSION 1 Active Calcium-Magnesi um-Vitamin D (CITRACAL CALCIUM+D PO) 1 tab(s) orally 2 times a day Active lisinopril 5 MG tablet Take 1 tablet (5 mg) by mouth 1 (one) time each day. 3 Active triamcinolone (Kenalog) 0.1 % ointment Apply topically 1 (one) time each day. 3 Active montelukast (Singulair) 10 MG tablet TAKE ONE TABLET ONCE DAILY FOR 90 DAYS 3 Active memantine (Namenda) 10 MG tablet Take 1 tablet (10 mg) by mouth 2 (two) times a day. 3 Active fluticasone (Flonase) 50 MCG/ACT nasal spray INSTILL 1 SPRAY INTO EACH NOSTRIL FOR ALLERGY SYMPTOMS 3 Active Active Problems Problem Noted Date Diagnosed Date Malignant neoplasm of overla pping sites of right breast in female, estrogen receptor positive 03/17/2021 Cancer Staging:Clinical stage from 04/26/2011:Stage IA(T1c, N0, M0) - Unsigned Anxiety 06/07/2016 Depression 06/07/2016 Dyslipidemia 06/07/2016 Endometriosis 06/07/2016 Fibromyalgia 06/07/2016 GERD (gastroesophageal reflux disease) 6 History of cervical dysplasia 06/07/2016 Hypothyroidism 06/07/2016 PETRONA (obstructive sleep apnea) 12/06/2015 Overview (03/17/2021): wears home CPAP therapy PAC (premature atrial contraction) 12/05/2015 PAF (paroxysmal atrial fibrillation) 12/05/2015 Overview (03/17/2021): -Cardioversion to sinus rhythm and initiation of Tambocor and Coumadin -Chads VASC 2 -Discontinuation of Coumadin therapy 2010 following right breast lumpectomy for cancer - Asymptomatic recurrent atrial fibrillation and Dr. Li's office with an EKG revealing atrial fibrillation (rate controlled) March 2012 -Remote negative stress test in 2002, reported normal echocardiogram with the exception of mild mitral valve prolapse 2009 in [place], data deficient -Flecainide therapy initiated 2014 -PVA per Dr Miller 06/29/15 - Family History Medical History Relation Name Comments Brain cancer Brother Family history of malignant neoplasm of brain Lung cancer Mother Family history of lung cancer Relation Name Status Comments Brother Mother Social History Tobacco Use Types Packs/Day Years Used Date Smoking Tobacco: Former Smokeless Tobacco: Never Tobacco Cessation:Counseling Given: Not Answered Comments No Sex and Gender Information Value Date Recorded Sex Assigned at Not on file Legal Sex Female 6:40 PM EDT Gender Identity Not on file Sexual Orientation Not on file Last Filed Vital Signs Vital Sign Reading Time Taken Comments Blood Pressure 120/70 06/19/2023 3:54 PM EST Pulse 67 06/19/2023 3:54 PM EST Temperature 36.8 C (98.2 F) 06/19/2023 3:54 PM EST Respiratory Rate - - Oxygen Saturation 99% 06/19/2023 3:54 PM EST Inhaled Oxygen Concentration - - Weight 69.4 kg (153 lb) 03/08/2022 12:23 PM EDT Height 154.9 cm (5' 1 ) 06/19/2023 3:54 PM EST Body Mass Index 28.91 03/08/2021 1:37 PM EDT Plan of Treatment Health Maintenance Due Date Last Done Comments [facility]-Bone Density Scan 1946 [facility]-Depression Screening 1946 [facility]-Hepatitis C Screening 1945 [facility]-Medicare Annual Wellness (AWV) 1946 [facility]-Infant/Child/Adol SDOH Screenings 1946 [facility]-Obesity Intervention 1952 [facility]- SDOH Screenings 1964 [facility]-Adult SDOH Screenings 1964 [facility]-DTaP,Tdap,and Td Vaccines (1 - Tdap) 1965 [facility]-Zoster Vaccines (1 of 2) 1965 [facility]-Pneumococcal Vaccine: 50+ Years (2 of 2 - PPSV23) 12/06/2016 10/11/2016 [facility]-RSV Vaccine: 60+ Years or (1 - 1-dose 75+ series) 2021 [id number]-13 Vaccine ( season) 2024 05/17/2023, 05/18/2021, 09/08/2020, Additional history exists [facility]-Influenza Vaccine (#1) 02/15/202504/29, 04/11/2021, 02/28/2021, Additional history exists [facility]-Breast Cancer Screening Discontinued 06/19/2023, 03/08/2022, 03/08/2021, Additional history exists HPV Vaccines Aged Out No longer eligi ble based on patient's age to complete this topic [facility]-HIB Vaccines Aged Out No longer e ligible based on patient's age to complete this topic [facility]-Hepatitis A Vaccines Aged Out No longer eligible based on patient's age to complete this topic [facility]-IPV Vaccines Aged Out No longer e ligible based on patient's age to complete this topic [facility]-Rotavirus Vaccines Aged Out No lo nger eligible based on patient's age to complete this topic Procedures Procedure Name Priority Date/Time Associated Diagnosis Comments MAMMOGRAPHY BREAST DIAGNOSTIC TOMOSYNTHESIS BILATERAL Routine 06/19/2023 2:53 PM EST Malignant neoplasm of overlapping sites of right breast in female, estrogen receptor positive (CMS/HCC) Encounter for screening mammogram for malignant neoplasm of breast from Last 3 Months or Most Recently Relevant to Health Maintenance Results * Mammography Breast Diagnostic Tomosynthesis Bilateral (06/19/2023 2:53 PM EST) Anatomical Region Laterality Modality Breast Bilateral Mammography Impressions 06/19/2023 3:40 PM EST Right Breast BI-RADS Code: BI-RADS 2, Benign finding. Left Breast BI-RADS Code: BI-RADS 1, Negative. RECOMMENDATIONS: Right Breast Recommendations: Routine Screening Mammogram in 1 Year Clinical management of palpable lump without imaging findings Left Breast Recommendations: Routine Screening Mammogram in 1 Year CRITICAL RESULT: No. COMMUNICATION: The results and recommendations were discussed with the patient and a printed lay language version of the imaging report was given to the patient at the time of the visit. The mammogram was read with the assistance of CAD and tomosynthesis. By electronically signing this report, I, the attending physician, attest that I have personally reviewed the images/data for the above examination(s) and agree with the final edited report. Drafted by Naima Strickland MD on 06/19/2023 3:02 PM Final report signed by Jimmie Dyer MD on 06/19/2023 3:40 PM Narrative 06/19/2023 3:40 PM EST CLINICAL INDICATION: 77-year-old with prior history of right lumpectomy (ductal carcinoma) and bilateral breast reduction. She presents today with new right breast palpable concern for the past 3 months after a fall and trauma. TECHNIQUE: Bilateral diagnostic mammogram was performed. Computer assisted detection was used in the interpretation of this study. Tomosynthesis was used in the interpretation of this study. Multiplanar, quigley scale directed ultrasound of the Bilateral breast with limited Doppler vascular ultrasound was performed. Elastography was performed. COMPARISON: 03/08/2022, 03/08/2021 and 02/16/2020 Bilateral Breast Density: Scattered fibroglandular density FINDINGS: Mammogram Findings: Right breast: Postlumpectomy changes are redemonstrated. No suspicious masses, calcifications or areas of architectural distortion. Specifically, no suspicious mammographic finding at the site of palpable concern. Ultrasound was done to further evaluate. Left breast: No suspicious masses, calcifications or areas of architectural distortion. Right Breast Ultrasound Findings: Focused ultrasound performed at the area of palpable concern at 4:00 6 cm from the nipple demonstrates normal breast parenchyma without suspicious solid or cystic mass. This correlates with the mammogram. Elastography: Area of interest was soft on elastography. Procedure Note Jimmie Dyer MD - 06/19/2023 CLINICAL INDICATION: 77-year-old with prior history of right lumpectomy (ductal carcinoma) andbilateral breast reduction. She presents today with new right breastpalpable concern for the past 3 months after a fall and trauma. TECHNIQUE: Bilateral diagnostic mammogram was performed. Computer assisted detection was used in the interpretation of this study.Tomosynthesis was used in the interpretation of this study. Multiplanar, quigley scale directed ultrasound of the Bilateral breast withlimited Doppler vascular ultrasound was performed. Elastography wasperformed. COMPARISON: 03/08/2022, 03/08/2021 and 02/16/2020 Bilateral Breast Density: Scattered fibroglandular density FINDINGS: Mammogram Findings: Right breast: Postlumpectomy changes are redemonstrated. No suspiciousmasses, calcifications or areas of architectural distortion. Specifically,no suspicious mammographic finding at the site of palpable concern.Ultrasound was done to further evaluate. Left breast: No suspicious masses, calcifications or areas ofarchitectural distortion. Right Breast Ultrasound Findings: Focused ultrasound performed at the areaof palpable concern at 4:00 6 cm from the nipple demonstrates normalbreast parenchyma without suspicious solid or cystic mass. This correlateswith the mammogram. Elastography: Area of interest was soft onelastography. IMPRESSION: Right Breast BI-RADS Code: BI-RADS 2, Benign finding. Left Breast BI-RADS Code: BI-RADS 1, Negative. RECOMMENDATIONS: Right Breast Recommendations: Routine Screening Mammogram in 1 YearClinical management of palpable lump without imaging findings Left Breast Recommendations: Routine Screening Mammogram in 1 Year CRITICAL RESULT: No. COMMUNICATION: The results and recommendations were discussed with the patient and aprinted lay language version of the imaging report was given to thepatient at the time of the visit. The mammogram was read with theassistance of CAD and tomosynthesis. By electronically signing this report, I, the attending physician, attedwardthat I have personally reviewed the images/data for the aboveexamination(s) and agree with the final edited report. Drafted by Naima Strickland MD on 06/19/2023 3:02 PM Final report signed by Jimmie Dyer MD on 06/19/2023 3:40 PM Gia Medina COAL TRAMMER IMG BI PROCEDURES Final R esult from Last 3 Months or Most Recently Relevant to Health Maintenance [place] [address] ANTH Care Teams Die Trouble Shooter Relationship Specialty Start Date End Date Reid Quintana MD PCP - General Family Medicine 06/19/23
--- OUTSIDE RECORDS SUMMARY | 2024-12-31 14:01 | XMS_ITS | Clinical Summary ---
Author Organization [employer] ([place], [place], [place], [place]) Address [address] [place] [address] Care Team Providers Care Clinical Interviewer Name Role Phone Unavailable Primary Care Provider [...]
--- OUTSIDE RECORDS SUMMARY | 2024-12-31 14:01 | XMS_ITS | Encounter Summary ---
Author Organization [employer] ([place], [place], [place], [place]) Address [address] [place] [address] Care Team Providers Care Jig Worker Name Role Phone Unavailable Primary Care Provider Unavailabl e Encounter Details Date Type Department Care Team (Late st Contact Info) Description 08/15/2020 Transcribed Document [facility] [place] [facility] [place] [address] Akilah Moreau MD [facility] [place] [id number] Social History Tobacco Use Types Packs/Day Years Used Date Smoking Tobacco: Never Assessed Comments Unknown Sex and Gender Information Value Date Recorded Sex Assigned at Not on file Legal Sex Female 7:00 PM CDT Gender Identity Not on file Sexual Orientation Not on file documented as of this encounter Miscellaneous Notes * [employer]ner Conversion Note - Akilah ProviderMD - 08/15/2020 2:13 PM CONCRETE MIXER OPERATOR DATE OF SERVICE: 08/15/2020 SLEEP MEDICINE FOLLOWUP PRIMARY CARE PROVIDER: Bhupendra Smith MD HISTORY OF PRESENT ILLNESS: The patient presents for followup regarding her obstructive sleep apnea. The patient was last seen June 20, 2020. She was complaining of increased daytime fatigue and sleepiness and underwent a titration study April 27, 2020. She was best treated on bilevel therapy at 23/. She was having issues with a lot of air and pain in her GI tract with those high pressures. She also experienced major air leaks with a higher pressure, so we started her off at low pressures and are gradually increasing. She is here today to monitor response to therapy and see if we were able to increase pressures. A compliance download over the last 30 days demonstrates 100% compliance. She is on an auto BiPAP setting with a maximum expiratory pressure of 18 cm and minimum expiratory pressure of 10 cm and a pressure support of 4 to 6. Her average AHI has slightly decreased and is at 12.2. The patient is no longer having any air or pain in her GI tract with these pressures. She does continue to have a small air leak around the nose when her pressures are high, but overall seems to be tolerating her bilevel therapy well. PAST MEDICAL HISTORY: Hypertension, irregular heartbeats, atrial fibrillation, kidney disease, coronary artery disease, depression, diabetes, and GI reflux. She denies any new diagnoses, hospitalizations, or surgeries since she was last seen. SOCIAL HISTORY: She does not use tobacco products or drink alcoholic beverages. She does have about 2 caffeinated beverages daily. MEDICATIONS: Updated and reviewed in the chart. DRUG ALLERGIES: Updated and reviewed in the chart. REVIEW OF SYSTEMS: A 14-point review of system was obtained on the followup questionnaire and pertinent positives noted. PHYSICAL EXAMINATION: VITAL SIGNS: [place] 5/24. Height 61 inches, weight 182, BMI 24, respirations 14, oxygen saturation 97%, blood pressure 130/62, heart rate 78. GENERAL: This is a pleasant female, in no distress. HEENT: Pupils are equal and round. Exam of the airway deferred. The patient is wearing a mask. NECK: Without palpable adenopathy. LUNGS: Clear to auscultation. HEART: Regular rate and rhythm without murmurs. EXTREMITIES: Without clubbing or cyanosis. She does have 1+ pitting edema, bilateral ankles. PSYCH: The patient is cooperative, alert, and oriented x3. Mood and affect appropriate. IMPRESSION: 1. Obstructive sleep apnea. The patient is better tolerating her bilevel therapy. She is no longer complaining of air and pain in her gastrointestinal tract. She does continue to have a slight air leak. I have asked her to talk to her [email or web address] company about a better mask fit. She is agreeable to increasing pressure. 2. Hypersomnia. This has improved with use of CPAP. 3. Atrial fibrillation. 4. Hypertension. 5. Diabetes. 6. Obesity. RECOMMENDATIONS: 1. The patient's recent titration study on April 27, 2020 shows she was best treated at bilevel therapy of . We will slowly continue to increase pressures. I have sent orders to do [employer] to increase her maximum inspiratory pressure to 22 and her minimum expiratory pressure to 12 cm and a pressure support of 4 to 6 cm. 2. The patient will let us know if at any point she starts to experience air or GI discomfort with those higher pressures. 3. As mentioned above, I asked her to speak to [employer] about appropriate mask fit because she is experiencing leaks with the higher pressures. 4. She is also interested in a consultation for a mandibular advancement device. I have given her an order and referral to the [employer]. 5. I will see her back in 3 months to monitor response to therapy and continue to increase pressures as tolerated. /[id number] Lenore Cabrales APRN HH/AQ / HH / MODL /[id number] CC: Bhupendra Smith MD Electronically signed by Lina, [facility] Conversion Experimental Electronics Developer Cerner at 10/03/2022 10:45 PM CDT documented in this encounter Plan of Treatment Not on file documented as of this encounter Visit Diagnoses Not on filedocumented in this encounter
--- OUTSIDE RECORDS SUMMARY | 2024-12-31 14:01 | XMS_ITS | Encounter Summary ---
Author Organization [employer] ([place], [place], [place], [place]) Address [address] [place] [address] Care Team Providers Care Body Repairer Name Role Phone Unavailable Primary Care Provider Unavailabl e Encounter Details Date Type Department Care Team (Late st Contact Info) Description 06/20/2020 Transcribed Document [facility] [place] [facility] [place] [address] Akilah Moreau MD [facility] [place], [place] [id number] Social History Tobacco Use Types Packs/Day Years Used Date Smoking Tobacco: Never Assessed Comments Unknown Sex and Gender Information Value Date Recorded Sex Assigned at Not on file Legal Sex Female 7:00 PM CDT Gender Identity Not on file Sexual Orientation Not on file documented as of this encounter Miscellaneous Notes * [employer]ner Conversion Note - Akilah ProviderMD - 06/20/2020 2:21 PM PIN PUSHER DATE OF SERVICE: 06/20/2020 SLEEP MEDICINE FOLLOWUP PRIMARY CARE PROVIDER: Bhupendra Smith MD HISTORY OF PRESENT ILLNESS: The patient presents for annual followup regarding her obstructive sleep apnea. She was last seen on February 29, 2020, for her annual followup. She was complaining of increased daytime fatigue and sleepiness. Her AHI was increased at 13.5. She did undergo a split night titration study on April 27, 2020. This resulted in the patient being best treated on bilevel therapy at , however, she experienced a lot of air and pain in her GI tract with pressures this high. She also had issues with a major air leak with high pressures. Dr. Imelda Carter recommended slowly increasing her BiPAP levels. Patient said she did speak to [employer] about changing her mask and she felt like the new mask is working well. The patient has not had any pressure adjustments at this point. According to her download, she is on IPAP pressure max of 16 cm. Her expiratory minimum is 6 cm with a pressure support of 4-6 cm. She is 100% compliant over the last 30 days, and her AHI has slightly decreased at 9.5. The patient has noticed a slight decrease in her daytime fatigue as well. Her [place] is 3/24, which was previously 7/24. PAST MEDICAL HISTORY: Patient denies any new diagnoses, hospitalizations, or surgery since she was last seen. SOCIAL HISTORY: The patient does not use tobacco products or drink alcoholic beverages. She has up to 6 caffeinated beverages daily REVIEW OF SYSTEMS: 14-point review of systems was obtained on the followup questionnaire and pertinent positives noted. MEDICATIONS: Updated and reviewed in the chart. DRUG ALLERGIES: Updated and reviewed in the chart. PHYSICAL EXAMINATION: VITAL SIGNS: [place] 3/24, weight 182, BMI 33. Respirations 14, oxygen saturation 98%, blood pressure 146/61, heart rate 78. GENERAL: This is a pleasant female, in no distress. HEENT: Pupils are equal and round. Airway exam deferred. Patient is wearing a mask due to COVID-19. NECK: Without palpable adenopathy. LUNGS: Clear to auscultation. HEART: Without murmurs. Regular rate and rhythm. PSYCH: Patient is cooperative. Awake and alert x3. Mood and affect appropriate. IMPRESSION: 1. Obstructive sleep apnea. 2. Hypersomnia. 3. Atrial fibrillation. 4. Hypertension. 5. Diabetes. 6. Obesity. RECOMMENDATIONS: 1. We will slowly increase her pressures. I have sent a pressure adjustment to [employer]. I have increased her inspiratory maximum pressure to 18 cm and her minimum expiratory pressure of 10 cm with a pressure support of 4-6 cm. 2. We discussed the importance and efforts in weight loss. 3. I will see her back in 6-8 weeks to monitor response to these changes and possibly do an additional pressure increase if she no longer experiences air in her abdomen. The patient was instructed to call us if this increase causes discomfort. /[id number] GUILLE Lazaro/BLAZE / / MODL /[id number] CC: Bhupendra Smith documented in this encounter Plan of Treatment Not on file documented as of this encounter Visit Diagnoses Not on filedocumented in this encounter
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
[2024-12-31] MEDS: IOPAMIDOL-370 (76%);100ML BOTTLE 75 ML IV (14:14)
[2024-12-31] MEDS: SODIUM CHLORIDE 0.9% 10ML SYR (RAD ONLY) 10 ML IV (14:14)
== END 2024-12-31 23:59 | disposition home or self-care (01) ==
LOC: RAD 13:46
PROVIDERS: PCP Family Medicine; Visit Provider Internal Medicine Pulmonary Disease
DX: J98.11 Atelectasis (principal); R59.0 Localized enlarged lymph nodes
CPT/HCPCS: 71260; Q9967